=== PATIENT | female | born 1980 | race African-American/Black ===

== ENCOUNTER 2017-04-04 12:23 | Inpatient (IN) | payer BC, OTHER ==
[~2017-04-04] VITALS: Ht 165.1 cm; Wt 72.6 kg
[~2017-04-04 12:23] MED LIST: CHLO.12%30 SSP; DICL75 PO; ENOX40P SQ; IBUP800T23 PO; WARF7.5 PO
[2017-04-04 12:25] VITALS: BP 140/67; PULSE 94; RESP 15; TEMP 98.2; O2SAT 99
--- NOTE | 2017-04-04 12:52 | PD ---
HPI Chief Complaint: Musculoskeletal Complaint Time Seen by Provider: 12:45 Travel History International Travel<30 days: No Contact w/Intl Traveler<30days: No Traveled to known affect area: No History of Present Illness HPI 36 year old female with C/O of left leg pain & R leg edema. She reports the pain & swelling started 7 days prior. She denies trauma or injury She denies recent surgery, immobilization, no hormonal therapy. She is a smoker. She has a hx of prior DVT in R leg . She reports the left leg pain is constant, originating in the left buttocks & radiates down the posterior thigh to the posterior knee. The right leg is painful in the posterior aspect of the knee. She reports a PMH of prior R leg DVT after being placed on BC pills. No home meds. 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) Psychiatric: No Reproductive: No Respiratory: Yes Immunizations Current: No Migraines: Yes ?: Not : 3 Para: 3 Past Surgical History Abdominal Surgery: No Cardiac Surgery: No Section: Yes Gynecologic Surgery: Yes (3 c sect) Neurologic Surgery: Yes Thoracic Surgery: No Other Surgery: Yes Social History Alcohol Use: Yes Tobacco Use: Yes Substance Use: No Allergies-Medications (Allergen,Severity, Reaction): Coded Allergies: Penicillin (Verified Allergy, Severe, SWELLING, VOMITING, 07/12/16) Reported Meds & Prescriptions Reported Meds & Active Scripts Active No Active Prescriptions or Reported Medications Review of Systems Except as stated in HPI: all other systems reviewed are Neg Physical Exam Narrative GENERAL: well appearing black female. No distress. SKIN: Warm and dry. HEAD: Normocephalic. EYES: No scleral icterus. No injection or drainage. NECK: Supple, trachea midline. No JVD or lymphadenopathy. CARDIOVASCULAR: Regular rate and rhythm without murmurs, gallops, or rubs. RESPIRATORY: Breath sounds equal bilaterally. No accessory muscle use. GASTROINTESTINAL: Abdomen soft, non-tender, nondistended. MUSCULOSKELETAL: R leg: mild swelling, slightly larger than left, no pitting edema. Pulses present. N/V/S intact. No cyanosis. Tenderness to the posterior aspect of the knee. L leg: No edema, Pulses present. N/V/S intact. No cyanosis. Tenderness to the posterior aspect of the knee & thigh. BACK: Nontender without obvious deformity. No CVA tenderness. Data Data Last Documented VS Vital Signs Date Time Temp Pulse Resp B/P Pulse Ox O2 Delivery O2 Flow Rate FiO2 04/04/17 15:00 80 18 140/78 98 Room Air 04/04/17 12:25 98.2 Orders Us Leg Venous Doppler Bilat (04/04/17 ) Basic Metabolic Panel (Bmp) (04/04/17 12:53) Complete Blood Count With Diff (04/04/17 12:53) Prothrombin Time / Inr (Pt) (04/04/17 12:53) Act Partial Throm Time (Ptt) (04/04/17 12:53) Iv Access Insert/Monitor (04/04/17 12:53) Sodium Chloride 0.9% Flush (Ns Flush) (04/04/17 13:00) Enoxaparin Inj (Lovenox Inj) (04/04/17 15:15) Admit Order (Ed Use Only) (04/04/17 15:27) Labs Laboratory Tests Test 04/04/17 13:05 White Blood Count 13.2 TH/MM3 Red Blood Count 4.47 MIL/MM3 Hemoglobin 13.7 GM/DL Hematocrit 40.8 % Mean Corpuscular Volume 91.1 FL Mean Corpuscular Hemoglobin 30.6 PG Mean Corpuscular Hemoglobin 33.6 % Concent Red Cell Distribution Width 13.2 % Platelet Count 318 TH/MM3 Mean Platelet Volume 7.4 FL Neutrophils (%) (Auto) 75.6 % Lymphocytes (%) (Auto) 13.7 % Monocytes (%) (Auto) 8.5 % Eosinophils (%) (Auto) 1.7 % Basophils (%) (Auto) 0.5 % Neutrophils # (Auto) 10.0 TH/MM3 Lymphocytes # (Auto) 1.8 TH/MM3 Monocytes # (Auto) 1.1 TH/MM3 Eosinophils # (Auto) 0.2 TH/MM3 Basophils # (Auto) 0.1 TH/MM3 CBC Comment DIFF FINAL Differential Comment Prothrombin Time 10.0 SEC Prothromb Time International 0.9 RATIO Ratio Activated Partial 24.4 SEC Thromboplast Time Sodium Level 139 MEQ/L Potassium Level 3.8 MEQ/L Chloride Level 103 MEQ/L Carbon Dioxide Level 27.7 MEQ/L Anion Gap 8 MEQ/L Blood Urea Nitrogen 7 MG/DL Creatinine 0.47 MG/DL Estimat Glomerular Filtration 179 ML/MIN Rate Random Glucose 78 MG/DL Calcium Level 9.1 MG/DL MDM Medical Decision Making Medical Screen Exam Complete: Yes Emergency Medical Condition: Yes Medical Record Reviewed: Yes Differential Diagnosis DVT vs peripheral edema vs left sided sciatica vs nonspecific leg pain Narrative Course 36 year old female presents with 1 week hx of left leg pain & right leg swelling. She has a hx of prior R leg DVT. Not currently on any medications. Duplex US pending. Duplex US: DVT right leg, thrombosis of the left greater saphenous vein. Patient is uninsured with no Primary care provider, will admit to hospital to bridge on Coumadin. Residents/Dr. South agree to admit patient to their service. Physician Communication Physician Communication Spoke with medical residents & Dr. South they agree to admit patient to their services. Diagnosis Primary Impression: DVT (deep venous thrombosis) Qualified Code: I82.4Y1 - Acute deep vein thrombosis (DVT) of proximal vein of right lower extremity Admitting Information Admitting Physician Requests: Admit Scripts No Active Prescriptions or Reported Sunita Ennis April 04, 2017 12:52
[2017-04-04] MEDS ORDERED: SODIUM CHLORIDE 0.9% FLUSH 10 ML FLUSH IV FLUSH PRN (13:00)
[2017-04-04 13:26] LABS: BASOPHIL # 0.1 TH/MM3 (0-0.2); BASOPHIL % 0.5 % (0.0-2.0); EOSINOPHIL # 0.2 TH/MM3 (0-0.4); EOSINOPHIL % 1.7 % (0.0-4.0); HEMATOCRIT 40.8 % (35.0-46.0); HEMO FLAGS DIFF FINAL; LYMPH % 13.7 % (9.0-44.0); LYMPHOCYTE # 1.8 TH/MM3 (1.0-4.8); MEAN CELL VOLUME 91.1 FL (80.0-100.0); MEAN CORPUSCULAR HEMOGLOBIN 30.6 PG (27.0-34.0); MEAN CORPUSCULAR HGB CONC 33.6 % (32.0-36.0); MONO % 8.5 % (0.0-8.0); NEUT % 75.6 % (16.0-70.0); PLATELET COUNT 318 TH/MM3 (150-450); RED BLOOD COUNT 4.47 MIL/MM3 (4.00-5.30); RED CELL DISTRIBUTION WIDTH 13.2 % (11.6-17.2); WHITE BLOOD COUNT 13.2 TH/MM3 (4.0-11.0)
[2017-04-04 13:33] LABS: APTT (PATIENT) 24.4 SEC (24.3-30.1); INTERNATIONAL NORMALIZED RATIO 0.9 RATIO
[2017-04-04 13:47] LABS: BICARBONATE 27.7 MEQ/L (21.0-32.0); POTASSIUM 3.8 MEQ/L (3.5-5.1)
--- NOTE | 2017-04-04 14:54 | RADRPT ---
EXAM DATE/TIME: 04/04/2017 13:08 [facility] COMPARISON: US LEG RIGHT VENOUS DOPPLER, February 23, 2015, 6:36. INDICATIONS : Right leg edema. Left leg pain. MEDICAL HISTORY : Brain stem cyst. DVT. Migraines. Asthma. Cardiac disorder. SURGICAL HISTORY : section.Tubal ligation. Craniotomy. ENCOUNTER: Initial ACUITY: 1 week PAIN SCORE: 7/10 LOCATION: Bilateral legs. TECHNIQUE: Venous ultrasound of the left and right leg was performed from the inguinal ligament to the proximal calf. Real-time, color Doppler and spectral tracing, compression and augmentation techniques were us ed. FINDINGS: RIGHT LEG: There is incomplete compressibility of the deep veins in the lumen of the common femoral, femoral, po pliteal, and posterior tibial veins with similar changes in the greater saphenous vein. LEFT LEG: There is normal compressibility of the deep venous system from the inguinal region to the proximal ca lf. No echogenic clot is seen in the lumen of the common femoral, femoral, popliteal, and posterior tibial veins. There is a normal response of the venous system to proximal and distal augmentation an d respiration. Thrombus seen within the greater saphenous vein on the left. Solis's cyst measures 6. 7 x 1.2 cm. CONCLUSION: 1. Deep venous thrombosis of the right leg. 2. Thrombosis of the left greater saphenous vein. 3. Popliteal cyst on the left. Jacky Avery MD on April 04, 2017 at 14:50 Board Certified Radiologist. This report was verified electronically.
[2017-04-04 15:00] VITALS: BP 140/78; PULSE 80; RESP 18; O2SAT 98
[2017-04-04] MEDS ORDERED: ENOXAPARIN SODIUM 80 MG/0.8 ML SYRINGE SQ ONE (15:15)
[2017-04-04] MEDS ORDERED: ACETAMINOPHEN/HYDROcodone 325 MG/5 MG TAB PO PRN (16:00)
--- NOTE | 2017-04-04 16:00 | HHI.HP ---
[facility] Service Family Medicine Primary Care Physician No Primary Care Physician Admission Diagnosis DVT Diagnoses: International Travel<30 Days: No Contact w/Intl Traveler<30days: No Known Affected Area: No History of Present Illness Pt is a 36 y/o AAF with a past medical history of lower extremity DVTs and asthma presents to the [facility] ED with a chief complaint of left leg pain and right leg swelling of one week duration. The patient states that her right buttock hurts really bad with cramping pain and the pain radiates down to her feet. She has had difficulty with ambulation. She reports weakness in her lower extremities and numbness of her feet. She denies any change in medications, she is not taking any medications at the moment. She denies changes in diet and recent travel. Patient states that she had a DVT in 2008 in her right leg which was attributed to her smoking cigarettes while taking control. She was admitted to [facility] where she was bridged with warfarin. She took warfarin for like 3-4 years and then stopped because she lost her job and her insurance and could not go to clinics and could not afford the medication. Review of Systems Constitutional: COMPLAINS OF: Dizziness, DENIES: Fever, Chills, Change in appetite Eyes: DENIES: Blurred vision Ears, nose, mouth, throat: DENIES: Nasal discharge, Throat pain, Running Nose Respiratory: DENIES: Shortness of breath Gastrointestinal: COMPLAINS OF: Nausea, DENIES: Abdominal pain, Vomiting Genitourinary: DENIES: Urinary frequency, Dysuria Musculoskeletal: COMPLAINS OF: Muscle aches, Back pain Integumentary: DENIES: Rash Neurologic: COMPLAINS OF: Paresthesias Past Family Social History Past Medical History History of right lower extremity DVT Asthma Alcohol abuse Smoking addiction Past Surgical History Cyst removal from her brainstem several years earlier Reported Medications Reported Meds & Active Scripts Active No Active Prescriptions or Reported Medications Allergies: Coded Allergies: Penicillin (Verified Allergy, Severe, SWELLING, VOMITING, 07/12/16) Family History No family history of bleeding/clotting disorder Social History Drinks minimum 4 pack of beer 2-3 times a week Smokes one pack per day 21 years Marijuana use, last was 2 days ago Physical Exam Vital Signs Vital Signs Date Time Temp Pulse Resp B/P Pulse Ox O2 Delivery O2 Flow Rate FiO2 04/04/17 15:00 80 18 140/78 98 Room Air 04/04/17 12:25 98.2 94 15 140/67 99 Physical Exam GENERAL: This is a well-nourished, well-developed patient, in no apparent distress, but appears in pain, lying in bed, leaning towards her right side. Breathing comfortably on room air SKIN: No rashes, ecchymoses or lesions. Cool and dry. HEAD: Atraumatic. Normocephalic. No temporal or scalp tenderness. EYES: Pupils equal round and reactive. Extraocular motions intact. No scleral icterus. No injection or drainage. ENT: Nose without bleeding, purulent drainage or septal hematoma. Throat without erythema, tonsillar hypertrophy or exudate. Uvula midline. Airway patent. NECK: Trachea midline. No JVD or lymphadenopathy. Supple, nontender, no meningeal signs. CARDIOVASCULAR: Regular rate and rhythm without murmurs, gallops, or rubs. RESPIRATORY: Clear to auscultation. Breath sounds equal bilaterally. No wheezes , rales, or rhonchi. GASTROINTESTINAL: Abdomen soft, tender to palpation in the epigastric area, nondistended. No hepato-splenomegaly, or palpable masses. No guarding. MUSCULOSKELETAL: Right lower extremity appears larger than the left lower extremity, cough tenderness bilaterally, palpable cord in the medial aspect of her right lower extremity, tenderness in the posterior aspect of her right knee and same tenderness in the posterior aspect of the left knee. Palpable dorsalis pedis pulses bilaterally. Sensation intact. Able to elevate both lower extremities against resistance. 4/5 strength in plantar and dorsiflexion. NEUROLOGICAL: Awake and alert. Cranial nerves II through XII intact. Motor and sensory grossly within normal limits. Laboratory Laboratory Tests Test 04/04/17 13:05 White Blood Count 13.2 Red Blood Count 4.47 Hemoglobin 13.7 Hematocrit 40.8 Mean Corpuscular Volume 91.1 Mean Corpuscular Hemoglobin 30.6 Mean Corpuscular Hemoglobin 33.6 Concent Red Cell Distribution Width 13.2 Platelet Count 318 Mean Platelet Volume 7.4 Neutrophils (%) (Auto) 75.6 Lymphocytes (%) (Auto) 13.7 Monocytes (%) (Auto) 8.5 Eosinophils (%) (Auto) 1.7 Basophils (%) (Auto) 0.5 Neutrophils # (Auto) 10.0 Lymphocytes # (Auto) 1.8 Monocytes # (Auto) 1.1 Eosinophils # (Auto) 0.2 Basophils # (Auto) 0.1 CBC Comment DIFF FINAL Differential Comment Prothrombin Time 10.0 Prothromb Time International 0.9 Ratio Activated Partial 24.4 Thromboplast Time Sodium Level 139 Potassium Level 3.8 Chloride Level 103 Carbon Dioxide Level 27.7 Anion Gap 8 Blood Urea Nitrogen 7 Creatinine 0.47 Estimat Glomerular Filtration 179 Rate Random Glucose 78 Calcium Level 9.1 Result Diagram: 04/04/17 1305 04/04/17 1305 Imaging Last 48 hours Impressions Lower Extremity Ultrasound 04/04/17 0000 Signed Impressions: Service Date/Time: Tuesday, April 04, 2017 13:08 - CONCLUSION: 1. Deep venous thrombosis of the right leg. 2. Thrombosis of the left greater saphenous vein. 3. Popliteal cyst on the left. Jacky Avery MD Assessment and Plan Assessment and Plan 36-year-old female with a history of right lower extremity DVT and asthma presents with a one-week history of left leg pain and right lower extremity pain and swelling found to have a DVT of her right lower extremity and thrombosis of the left greater saphenous vein. She will be admitted under observation for treatment with therapeutic Lovenox and bridging to warfarin. Patient is interested in novel anticoagulants but notably is self-pay and may not be able to afford those medications. Code Status Full code Discussed Condition With Discussed with Dr. Hopper, PGY 2 Problem List: (1) DVT (deep venous thrombosis) Status: Acute Plan: -Acute on chronic DVT of right lower extremity confirmed by lower extremity ultrasound today -Hypercoagulable panel pending -Ultrasound abdomen pending -Started on therapeutic Lovenox 1 mg/kg twice a day - 83 mg twice a day -We'll start warfarin bridge at 5 mg PO today with daily INR checks - will adjust warfarin as needed to get to target INR of 2-3 -[place] one tab every 4 when necessary pain 1 through 5 -[place] 2 tab when necessary pain 5-10 -Morphine 2 mg IV every 4 when necessary for breakthrough pain -Zofran 4 mg IV when necessary nausea/vomiting -Case management consulted to assist with patient's medications -Physical therapy consulted to assist with mobility DVT Hx: -First DVT was in August 2009 - right femoral artery -November 2009-DVT of the right lower extremity -February 2015: DVT of the distal SFV, popliteal vein, and posterior tibial vein of the right lower extremity (2) FEN/DVT PPX/GI PPX/Standard Orders Status: Acute Plan: Fluids: Oral fluids Electrolytes: Will monitor and replace as needed Nutrition: Regular adult diet DVT Prophylaxis: On therapeutic Lovenox as above GI Prophylaxis: Not required -Monitor I's and O's -Continuous vital signs -Out of bed as tolerated -Nicotine patch due to daily smoking Disposition: Patient will probably require up to 5 days to become therapeutic on warfarin Problem Qualifiers (1) DVT (deep venous thrombosis): Qualified Code: I82.4Y1 - Acute deep vein thrombosis (DVT) of proximal vein of right lower extremity Norma Sharma MD R1 April 04, 2017 16:00
--- NOTE | 2017-04-04 16:20 | PD ---
Data Data Last Documented VS Vital Signs Date Time Temp Pulse Resp B/P Pulse Ox O2 Delivery O2 Flow Rate FiO2 04/04/17 15:00 80 18 140/78 98 Room Air 04/04/17 12:25 98.2 Orders Us Leg Venous Doppler Bilat (04/04/17 ) Basic Metabolic Panel (Bmp) (04/04/17 12:53) Complete Blood Count With Diff (04/04/17 12:53) Prothrombin Time / Inr (Pt) (04/04/17 12:53) Act Partial Throm Time (Ptt) (04/04/17 12:53) Iv Access Insert/Monitor (04/04/17 12:53) Sodium Chloride 0.9% Flush (Ns Flush) (04/04/17 13:00) Enoxaparin Inj (Lovenox Inj) (04/04/17 15:15) Admit Order (Ed Use Only) (04/04/17 15:27) Labs Laboratory Tests Test 04/04/17 13:05 White Blood Count 13.2 TH/MM3 Red Blood Count 4.47 MIL/MM3 Hemoglobin 13.7 GM/DL Hematocrit 40.8 % Mean Corpuscular Volume 91.1 FL Mean Corpuscular Hemoglobin 30.6 PG Mean Corpuscular Hemoglobin 33.6 % Concent Red Cell Distribution Width 13.2 % Platelet Count 318 TH/MM3 Mean Platelet Volume 7.4 FL Neutrophils (%) (Auto) 75.6 % Lymphocytes (%) (Auto) 13.7 % Monocytes (%) (Auto) 8.5 % Eosinophils (%) (Auto) 1.7 % Basophils (%) (Auto) 0.5 % Neutrophils # (Auto) 10.0 TH/MM3 Lymphocytes # (Auto) 1.8 TH/MM3 Monocytes # (Auto) 1.1 TH/MM3 Eosinophils # (Auto) 0.2 TH/MM3 Basophils # (Auto) 0.1 TH/MM3 CBC Comment DIFF FINAL Differential Comment Prothrombin Time 10.0 SEC Prothromb Time International 0.9 RATIO Ratio Activated Partial 24.4 SEC Thromboplast Time Sodium Level 139 MEQ/L Potassium Level 3.8 MEQ/L Chloride Level 103 MEQ/L Carbon Dioxide Level 27.7 MEQ/L Anion Gap 8 MEQ/L Blood Urea Nitrogen 7 MG/DL Creatinine 0.47 MG/DL Estimat Glomerular Filtration 179 ML/MIN Rate Random Glucose 78 MG/DL Calcium Level 9.1 MG/DL MDM Supervised Visit with LINDA: Yes Narrative Course The history, exam, and medical decision-making in the associated mid-level provider note were completed with my assistance. I reviewed and agree with the findings presented. I attest that I had a [id number] encounter with the patient on the same day, and personally performed and documented my assessment and findings in the medical record. *My assessment and Findings: 36 year-old woman, history of right lower extremity DVT, worsening swelling for the past week, and some left groin pain and left hip pain. She has recurrent DVT in the right, and superficial vein thrombosis of the saphenous vein on the left. She will require lifelong anticoagulation. She has no primary physician , no insurance, will need hospitalization for case management, initiation of anticoagulation. Diagnosis Primary Impression: DVT (deep venous thrombosis) Qualified Code: I82.4Y1 - Acute deep vein thrombosis (DVT) of proximal vein of right lower extremity Scripts No Active Prescriptions or Reported Meds Feliciano Logan MD April 04, 2017 16:20
[2017-04-04] MEDS ORDERED: INFO FOR PHARMACY/READ COMMENT ONE (16:30)
[2017-04-04] MEDS ORDERED: ONDANSETRON HCL 4 MG/2 ML VIAL IV PUSH PRN (16:45)
[2017-04-04] MEDS: WARFARIN SOD 5 MG TAB PO SCH (16:46)
[2017-04-04] MEDS: NICOTINE 14 MG/24 HR PATCH T-DERMAL SCH (16:47)
[2017-04-04] MEDS: MORPHINE SULFATE 4 MG/ML INJ IV PRN ×2 (16:47→21:05)
[2017-04-04 16:59] VITALS: BP 126/78
[2017-04-04 17:10] VITALS: BP 127/74; PULSE 85; RESP 18; TEMP 98.6; O2SAT 97
[2017-04-04] MEDS: ACETAMINOPHEN/HYDROcodone 325 MG/5 MG TAB PO PRN ×2 (18:06→22:16)
--- NOTE | 2017-04-04 18:11 | RADRPT ---
EXAM DATE/TIME: 04/04/2017 17:29 [facility] COMPARISON: No previous studies available for comparison. INDICATIONS : Abdominal pain. MEDICAL HISTORY : . Deep venous thrombosis. Head trauma. Brain stem cyst. Migraines. Asthma. Post dep ression. SURGICAL HISTORY : Tubal ligation. section. Brain stem cyst removal. ENCOUNTER: Initial ACUITY: 1 day PAIN SCORE: 3/10 LOCATION: Bilateral abdomen. MEASUREMENTS: LIVER: 14.2 cm length COMMON DUCT: 5 mm RIGHT KIDNEY: 10.2 x 5.4 x 4.9 cm LEFT KIDNEY: 11.7 x 5.9 x 5.6 cm SPLEEN: 8.6 cm length AORTA: 2.3cm maximal FINDINGS: LIVER: Normal echotexture without focal lesion or ductal dilatation. COMMON DUCT: No intraluminal mass or stone visualized. GALLBLADDER: Contains no stones, demonstrates no wall thickening or pericholecystic fluid. PANCREAS: The visualized portions are within normal limits. RIGHT KIDNEY: No hydronephrosis, stone or mass. LEFT KIDNEY: No hydronephrosis, stone or mass. SPLEEN: No focal lesion. AORTA: Non aneurysmal. IVC: Within normal limits. CONCLUSION: Negative for an acute process. Pancreas is difficult to visualize because of patient body habitus.. Marino Lau MD FACR on April 04, 2017 at 18:08 Board Certified Radiologist. This report was verified electronically.
[2017-04-04] MEDS: SODIUM CHLORIDE 0.9% FLUSH 10 ML FLUSH IV FLUSH SCH (19:59)
[2017-04-04] MEDS: REMOVE OLD PATCH T-DERMAL SCH (19:59)
[2017-04-04 20:05] VITALS: BP 116/73; PULSE 90; RESP 17; TEMP 98.1; O2SAT 96
[2017-04-05] VITALS (10 sets, daily range): BP systolic 85–121; BP diastolic 57–85; PULSE 73–95; RESP 16–18; TEMP 96.1–97.8; O2SAT 97–100
[2017-04-05] MEDS: MORPHINE SULFATE 4 MG/ML INJ IV PRN ×3 (03:14→16:56)
[2017-04-05] MEDS: ENOXAPARIN SODIUM 80 MG/0.8 ML SYRINGE SQ SCH ×2 (03:14→14:14)
[2017-04-05] MEDS: ACETAMINOPHEN/HYDROcodone 325 MG/5 MG TAB PO PRN ×2 (04:00→10:08)
[2017-04-05 05:39] LABS: AUTOMATED NEUTROPHIL # 6.7 TH/MM3 (1.8-7.7); BASOPHIL # 0.1 TH/MM3 (0-0.2); BASOPHIL % 0.7 % (0.0-2.0); EOSINOPHIL # 0.2 TH/MM3 (0-0.4); EOSINOPHIL % 2.4 % (0.0-4.0); HEMATOCRIT 38.5 % (35.0-46.0); HEMO FLAGS DIFF FINAL; LYMPH % 24.3 % (9.0-44.0); LYMPHOCYTE # 2.5 TH/MM3 (1.0-4.8); MEAN CELL VOLUME 90.4 FL (80.0-100.0); MEAN CORPUSCULAR HEMOGLOBIN 31.3 PG (27.0-34.0); MEAN CORPUSCULAR HGB CONC 34.6 % (32.0-36.0); MONO % 7.3 % (0.0-8.0); NEUT % 65.3 % (16.0-70.0); PLATELET COUNT 325 TH/MM3 (150-450); RED BLOOD COUNT 4.26 MIL/MM3 (4.00-5.30); RED CELL DISTRIBUTION WIDTH 13.3 % (11.6-17.2); WHITE BLOOD COUNT 10.2 TH/MM3 (4.0-11.0)
[2017-04-05 05:40] LABS: PROTHROMBIN TIME - PATIENT 10.5 SEC (9.8-11.6)
[2017-04-05 06:06] LABS: BICARBONATE 31.6 MEQ/L (21.0-32.0); POTASSIUM 3.4 MEQ/L (3.5-5.1)
[2017-04-05] MEDS ORDERED: POTASSIUM CHLORIDE 10 MEQ CONTROLLED RELEASE TAB PO ONE (07:15)
[2017-04-05] MEDS ORDERED: POTASSIUM CHLORIDE 10 MEQ CAP PO ONE (07:15)
[2017-04-05] MEDS: NICOTINE 14 MG/24 HR PATCH T-DERMAL SCH (07:31)
[2017-04-05] MEDS: SODIUM CHLORIDE 0.9% FLUSH 10 ML FLUSH IV FLUSH SCH ×2 (09:00→19:57)
[2017-04-05] MEDS ORDERED: INFLUENZA VIRUS VACCINE (QUADRIVALENT) 0.5 ML SYR IM ONE (10:00)
[2017-04-05] MEDS ORDERED: PNEUMOCOCCAL POLYVALENT INJ 25 MCG/0.5 ML SYR IM ONE (10:00)
[2017-04-05] MEDS: oxyCODONE/ACETAMINOPHEN 5 MG/325 MG TAB PO PRN ×4 (10:35→23:57)
--- NOTE | 2017-04-05 11:14 | HHI.FPPN ---
Subjective Remarks Patient still has a lot of pain and said she was in a lot of pain overnight because the Mar Lin did not help at all. She also complains of pain and numbness in her right arm and shoulder. She denies chest pain, shortness of breath, or hemoptysis. She understands that she would need to take warfarin which is the only medication she can afford at this time. She would need to be on anticoagulation for the rest of her life. (Norma Sharma MD R1) Objective Vitals Vital Signs Date Time Temp Pulse Resp B/P Pulse Ox O2 Delivery O2 Flow Rate FiO2 04/05/17 08:42 99 21 04/05/17 08:00 96.7 76 16 92/65 97 04/05/17 07:36 16 04/05/17 04:05 96.8 89 17 121/85 100 04/05/17 00:05 97.1 73 16 100/69 98 04/04/17 20:05 98.1 90 17 116/73 96 04/04/17 17:10 98.6 85 18 127/74 97 04/04/17 16:59 78 18 126/78 98 04/04/17 15:00 80 18 140/78 98 Room Air 04/04/17 12:25 98.2 94 15 140/67 99 I/O 04/04/17 04/04/17 04/04/17 04/05/17 04/05/17 04/05/17 07:00 15:00 23:00 07:00 15:00 23:00 Intake Total 360 ml 240 ml Balance 360 ml 240 ml Intake Oral 360 ml 240 ml # Voids 2 2 # Bowel Movements 0 0 (Norma Sharma MD R1) Result Diagram: 04/05/17 0510 04/05/17 0510 Imaging Last 48 hours Impressions Lower Extremity Ultrasound 04/04/17 0000 Signed Impressions: Service Date/Time: Tuesday, April 04, 2017 13:08 - CONCLUSION: 1. Deep venous thrombosis of the right leg. 2. Thrombosis of the left greater saphenous vein. 3. Popliteal cyst on the left. Jacky Avery MD Abdomen Ultrasound 04/04/17 0000 Signed Impressions: Service Date/Time: Tuesday, April 04, 2017 17:29 - CONCLUSION: Negative for an acute process. Pancreas is difficult to visualize because of patient body habitus.. Marino Lau MD FACR Objective Remarks GENERAL: This is a well-nourished, well-developed patient, in no apparent distress, lying in bed, leaning towards her right side. Breathing comfortably on room air SKIN: No rashes, ecchymoses or lesions. Cool and dry. HEAD: Atraumatic. Normocephalic. No temporal or scalp tenderness. EYES: Pupils equal round and reactive. Extraocular motions intact. No scleral icterus. No injection or drainage. ENT: Nose without bleeding, purulent drainage or septal hematoma. Throat without erythema, tonsillar hypertrophy or exudate. Uvula midline. Airway patent. NECK: Trachea midline. No JVD or lymphadenopathy. Supple, nontender, no meningeal signs. CARDIOVASCULAR: Regular rate and rhythm without murmurs, gallops, or rubs. RESPIRATORY: Clear to auscultation. Breath sounds equal bilaterally. No wheezes , rales, or rhonchi. GASTROINTESTINAL: Abdomen soft, nondistended. No hepato-splenomegaly, or palpable masses. No guarding. MUSCULOSKELETAL: Right lower extremity appears larger than the left lower extremity, tenderness in the posterior aspect of her right knee and same tenderness in the posterior aspect of the left knee. Tenderness in the left buttock NEUROLOGICAL: Awake and alert. Cranial nerves II through XII intact. Motor and sensory grossly within normal limits. (Norma Sharma MD R1) A/P Assessment and Plan 36-year-old female with a history of right lower extremity DVT and asthma presents with a one-week history of left leg pain and right lower extremity pain and swelling found to have a DVT of her right lower extremity and thrombosis of the left greater saphenous vein. She will be admitted under observation for treatment with therapeutic Lovenox and bridging to warfarin. Patient is interested in novel anticoagulants but notably is self-pay and may not be able to afford those medications. Seen and examined with Dr. South and Dr. Myles Discharge Planning Pending therapeutic INR of 2-3, possibly in the next 3-4 days. (Norma Sharma MD R1) Attending Attestation Patient seen and examined. Case reviewed and discussed with the resident team. Agree with plan of care as discussed with me and documented in the resident note (Red South MD) Problem List: (1) DVT (deep venous thrombosis) Status: Acute Plan: -Acute on chronic DVT of right lower extremity confirmed by lower extremity ultrasound today -Hypercoagulable panel pending -Ultrasound abdomen was negative but did not view the pancreas appropriately -Started on therapeutic Lovenox 1 mg/kg twice a day - 83 mg twice a day -Started on warfarin bridge at 5 mg PO today with daily INR checks - will adjust warfarin as needed to get to target INR of 2-3 -INR 1.0 on 04/05 -Percocet one tab every 4 when necessary pain 1-5 -Percocet 2 tab when necessary pain 5-10 -Morphine 2 mg IV every 4 when necessary for breakthrough pain -Zofran 4 mg IV when necessary nausea/vomiting -Case management consulted to assist with patient's medications -Physical therapy consulted to assist with mobility -Heat treatments for left buttock and legs DVT Hx: -First DVT was in August 2009 - right femoral artery -November 2009-DVT of the right lower extremity -February 2015: DVT of the distal SFV, popliteal vein, and posterior tibial vein of the right lower extremity (2) FEN/DVT PPX/GI PPX/Standard Orders Status: Acute Plan: Fluids: Oral fluids Electrolytes: Will monitor and replace as needed Nutrition: Regular adult diet DVT Prophylaxis: On therapeutic Lovenox with warfarin as above GI Prophylaxis: Not required -Monitor I's and O's -Continuous vital signs -Out of bed as tolerated -Nicotine patch due to daily smoking Disposition: Patient will probably require up to 5 days to become therapeutic on warfarin (Norma Sharma MD R1) Problem Qualifiers (1) DVT (deep venous thrombosis): Qualified Code: I82.4Y1 - Acute deep vein thrombosis (DVT) of proximal vein of right lower extremity Norma Sharma MD R1 April 05, 2017 11:14 Red South MD April 06, 2017 09:04
[2017-04-05] MEDS: WARFARIN SOD 5 MG TAB PO SCH (16:48)
[2017-04-05] MEDS: REMOVE OLD PATCH T-DERMAL SCH (20:04)
[2017-04-05] MEDS ORDERED: NICOTINE 14 MG/24 HR PATCH T-DERMAL ONE (21:00)
[2017-04-06] MEDS: ENOXAPARIN SODIUM 80 MG/0.8 ML SYRINGE SQ SCH ×2 (03:22→14:42)
[2017-04-06 04:15] VITALS: BP 94/69; PULSE 82; RESP 16; TEMP 97.1; O2SAT 100
[2017-04-06 05:08] LABS: HEMATOCRIT 37.6 % (35.0-46.0); MEAN CELL VOLUME 91.5 FL (80.0-100.0); MEAN CORPUSCULAR HEMOGLOBIN 30.8 PG (27.0-34.0); MEAN CORPUSCULAR HGB CONC 33.7 % (32.0-36.0); PLATELET COUNT 305 TH/MM3 (150-450); RED BLOOD COUNT 4.12 MIL/MM3 (4.00-5.30); REVIEW FLAG FINAL; WHITE BLOOD COUNT 9.7 TH/MM3 (4.0-11.0)
[2017-04-06 05:18] LABS: PROTHROMBIN TIME - PATIENT 10.6 SEC (9.8-11.6)
[2017-04-06 05:35] LABS: BICARBONATE 34.3 MEQ/L (21.0-32.0); POTASSIUM 3.9 MEQ/L (3.5-5.1)
[2017-04-06] MEDS: oxyCODONE/ACETAMINOPHEN 5 MG/325 MG TAB PO PRN ×3 (07:23→20:48)
[2017-04-06 08:00] VITALS: BP_SYST 140; BP_SYST 97; BP_DIAS 63; BP_DIAS 70; PULSE 70; PULSE 89; RESP 18; TEMP 97.2; TEMP 97.9; O2SAT 100; O2SAT 99
[2017-04-06] MEDS: NICOTINE 14 MG/24 HR PATCH T-DERMAL SCH ×2 (09:00→10:29)
--- NOTE | 2017-04-06 09:13 | HHI.FPPN ---
Subjective Remarks Ms Haddad is doing much better this morning. She continues to have left buttock and left calf pain but states that the pain is much improved and is well managed with medication. She had an episode of vomiting yesterday but none since. The pain in her right arm and shoulder that she reported yesterday is much improved but she now has pain on her left arm. She has been able to walk with physical therapy and will try more activity of daily. Objective Vitals Vital Signs Date Time Temp Pulse Resp B/P Pulse Ox O2 Delivery O2 Flow Rate FiO2 04/06/17 08:00 97.2 89 18 97/63 100 04/06/17 04:15 97.1 82 16 94/69 100 04/05/17 23:55 97.8 81 16 113/74 100 04/05/17 19:40 97.8 95 16 100/68 98 04/05/17 19:26 98 21 04/05/17 17:11 17 04/05/17 16:50 105/69 04/05/17 16:00 96.1 74 18 85/57 97 04/05/17 15:16 16 04/05/17 12:00 97.4 83 18 112/68 98 I/O 04/05/17 04/05/17 04/05/17 04/06/17 04/06/17 04/06/17 07:00 15:00 23:00 07:00 15:00 23:00 Intake Total 240 ml 840 ml 240 ml Balance 240 ml 840 ml 240 ml Intake Oral 240 ml 840 ml 240 ml # Voids 2 5 2 # Bowel Movements 0 0 0 Result Diagram: 04/06/17 0420 04/06/17 0420 Objective Remarks GENERAL: This is a well-nourished, well-developed patient, in no apparent distress, lying in bed, leaning towards her right side. Breathing comfortably on room air SKIN: No rashes, ecchymoses or lesions. Cool and dry. HEAD: Atraumatic. Normocephalic. No temporal or scalp tenderness. EYES: Pupils equal round and reactive. Extraocular motions intact. No scleral icterus. No injection or drainage. ENT: Nose without bleeding, purulent drainage or septal hematoma. Throat without erythema, tonsillar hypertrophy or exudate. Uvula midline. Airway patent. NECK: Trachea midline. No JVD or lymphadenopathy. Supple, nontender, no meningeal signs. CARDIOVASCULAR: Regular rate and rhythm without murmurs, gallops, or rubs. RESPIRATORY: Clear to auscultation. Breath sounds equal bilaterally. No wheezes , rales, or rhonchi. GASTROINTESTINAL: Abdomen soft, nondistended. No hepato-splenomegaly, or palpable masses. No guarding. MUSCULOSKELETAL: Right lower extremity appears larger than the left lower extremity, tenderness in the posterior aspect of her right knee and same tenderness in the posterior aspect of the left knee. Tenderness in the left buttock. Nicotine patch on the left upper arm. NEUROLOGICAL: Awake and alert. Cranial nerves II through XII intact. Motor and sensory grossly within normal limits. A/P Assessment and Plan 36-year-old female with a history of right lower extremity DVT and asthma presents with a one-week history of left leg pain and right lower extremity pain and swelling found to have a DVT of her right lower extremity and thrombosis of the left greater saphenous vein. She will be admitted under observation for treatment with therapeutic Lovenox and bridging to warfarin. Discussed with Dr. Hopper, PGY 2 Discharge Planning Pending therapeutic INR of 2-3, possibly in the next 3-4 days. Problem List: (1) DVT (deep venous thrombosis) Status: Acute Plan: -Acute on chronic DVT of right lower extremity confirmed by lower extremity ultrasound -Hypercoagulable panel pending -Ultrasound abdomen was negative but did not view the pancreas appropriately -Started on therapeutic Lovenox 1 mg/kg twice a day - 83 mg twice a day -Started on warfarin bridge at 5 mg PO today with daily INR checks - will adjust warfarin as needed to get to target INR of 2-3 -INR 1.0 on 04/06 - will increase to 6 mg at 4 PM today with an extra dose of 2.5 mg this morning -Percocet one tab every 4 when necessary pain 1-5 -Percocet 2 tab when necessary pain 5-10 -Morphine 2 mg IV every 4 when necessary for breakthrough pain -Zofran 4 mg IV when necessary nausea/vomiting -Case management consulted to assist with patient's medications -offered a blue card -Physical therapy consulted to assist with mobility -Heat treatments for left buttock and legs DVT Hx: -First DVT was in August 2009 - right femoral artery -November 2009-DVT of the right lower extremity -February 2015: DVT of the distal SFV, popliteal vein, and posterior tibial vein of the right lower extremity (2) FEN/DVT PPX/GI PPX/Standard Orders Status: Acute Plan: Fluids: Oral fluids Electrolytes: Will monitor and replace as needed Nutrition: Regular adult diet DVT Prophylaxis: On therapeutic Lovenox with warfarin as above GI Prophylaxis: Not required -Monitor I's and O's -Continuous vital signs -Out of bed as tolerated -Nicotine patch due to daily smoking Disposition: Patient will probably require up to 5 days to become therapeutic on warfarin Problem Qualifiers (1) DVT (deep venous thrombosis): Qualified Code: I82.4Y1 - Acute deep vein thrombosis (DVT) of proximal vein of right lower extremity Norma Sharma MD R1 April 06, 2017 09:13
[2017-04-06] MEDS ORDERED: WARFARIN SOD 2.5 MG TAB PO ONE (09:30)
[2017-04-06] MEDS: SODIUM CHLORIDE 0.9% FLUSH 10 ML FLUSH IV FLUSH SCH ×2 (10:29→20:50)
[2017-04-06] MEDS: MORPHINE SULFATE 4 MG/ML INJ IV PRN (10:38)
[2017-04-06 12:00] VITALS: BP 119/80; PULSE 105; RESP 18; TEMP 102.9; O2SAT 100
[2017-04-06] MEDS: ACETAMINOPHEN 325 MG TAB PO PRN (13:37)
--- NOTE | 2017-04-06 15:21 | RADRPT ---
EXAM DATE/TIME: 04/06/2017 14:05 [facility] COMPARISON: No previous studies available for comparison. INDICATIONS : Left arm swelling and pain. MEDICAL HISTORY : Deep venous thrombosis. Left arm swelling and pain. SURGICAL HISTORY : section. Tubal ligation. Craniotomy. ENCOUNTER: Initial ACUITY: 1 day PAIN SCORE: 7/10 LOCATION: Left arm. FINDINGS: There is spontaneous flow documented in the brachial, basilic, cephalic, axillary, and subclavian vei ns. The vessels are compressible and augmentation response is documented. No filling defects are se en. The flow is phasic with respiration. Direction of flow in the jugular vein is caudal. CONCLUSION: No DVT left arm. Jacky Avery MD on April 06, 2017 at 15:18 Board Certified Radiologist. This report was verified electronically.
[2017-04-06 15:54] VITALS: BP 104/70; PULSE 110; RESP 18; TEMP 99.6; O2SAT 98
[2017-04-06] MEDS ORDERED: WARFARIN SOD 6 MG TAB PO SCH (16:00)
[2017-04-06 20:25] VITALS: BP 117/66; PULSE 122; RESP 16; TEMP 103.2; O2SAT 97
[2017-04-06] MEDS: REMOVE OLD PATCH T-DERMAL SCH (20:48)
--- NOTE | 2017-04-06 21:55 | RADRPT ---
EXAM DATE/TIME: 04/06/2017 20:46 [facility] COMPARISON: No previous studies available for comparison. INDICATIONS : Fever. MEDICAL HISTORY : Asthma. SURGICAL HISTORY : None. ENCOUNTER: Initial ACUITY: 1 day PAIN SCORE: 0/10 LOCATION: Bilateral chest FINDINGS: A single view of the chest demonstrates the lungs to be symmetrically aerated without evidence of mas s, infiltrate or effusion. The cardiomediastinal contours are unremarkable. Osseous structures are intact. CONCLUSION: No acute disease. Alvaro Santiago MD on April 06, 2017 at 21:52 Board Certified Radiologist. This report was verified electronically.
[2017-04-06 22:04] VITALS: PULSE 101; TEMP 99.8
[2017-04-07 00:15] VITALS: BP 107/56; PULSE 104; RESP 16; TEMP 99.5; O2SAT 100
[2017-04-07 00:46] LABS: BLOOD, URINE NEG (NEG); COMMENT (UR) CULT NOT INDICATED; CULTURE IF INDICATED CULT NOT INDICATED; GLUCOSE,URINE NEG (NEG); KETONE, URINE TRACE mg/dL (NEG); MUCUS URINE FEW /lpf (OCC); NITRITE,URINE NEG (NEG); PH, URINE 6.5 (5.0-8.5); SQUAMOUS EPITHELIAL CELL URINE 2 /hpf (0-5); URINE COLOR LIGHT-YELLOW (YELLW/STRAW)
[2017-04-07] MEDS: oxyCODONE/ACETAMINOPHEN 5 MG/325 MG TAB PO PRN ×4 (02:56→19:27)
[2017-04-07] MEDS: ENOXAPARIN SODIUM 80 MG/0.8 ML SYRINGE SQ SCH ×2 (02:56→16:14)
[2017-04-07 03:50] VITALS: BP 93/69; PULSE 110; RESP 16; TEMP 98.1; O2SAT 98
[2017-04-07] MEDS: REMOVE OLD PATCH T-DERMAL SCH (07:28)
[2017-04-07] MEDS: SODIUM CHLORIDE 0.9% FLUSH 10 ML FLUSH IV FLUSH SCH ×2 (07:28→21:03)
[2017-04-07] MEDS: NICOTINE 14 MG/24 HR PATCH T-DERMAL SCH (07:28)
[2017-04-07] MEDS ORDERED: DO NOT ADM ANY ANTICOAGULANT DRUGS OTHER PRN (07:30)
[2017-04-07] MEDS ORDERED: WARFARIN SOD 2.5 MG TAB PO ONE (07:30)
[2017-04-07] MEDS ORDERED: diphenhydrAMINE HCL 50 MG CAP PO ONE (07:45)
[2017-04-07 07:55] LABS: HEMATOCRIT 42.2 % (35.0-46.0); MEAN CELL VOLUME 91.6 FL (80.0-100.0); MEAN CORPUSCULAR HEMOGLOBIN 30.8 PG (27.0-34.0); MEAN CORPUSCULAR HGB CONC 33.6 % (32.0-36.0); PLATELET COUNT 320 TH/MM3 (150-450); RED BLOOD COUNT 4.61 MIL/MM3 (4.00-5.30); REVIEW FLAG FINAL; WHITE BLOOD COUNT 25.5 TH/MM3 (4.0-11.0)
[2017-04-07 08:00] VITALS: BP 90/65; PULSE 98; RESP 18; TEMP 99.9; O2SAT 100
[2017-04-07 08:08] LABS: INTERNATIONAL NORMALIZED RATIO 1.2 RATIO; PROTHROMBIN TIME - PATIENT 13.7 SEC (9.8-11.6)
--- NOTE | 2017-04-07 08:32 | HHI.FPPN ---
Subjective Remarks Patient seen and examined this morning. Overnight had a temperature of 103.2, at this time is afebrile at 98.1, and 10, respiratory rate 16, blood pressure 93 /69. She declined any lightheadedness or dizziness. She is complaining of warmth and pain to her left arm. This pain is where the nicotine patch was recently placed. Concern for possible allergic reaction to the nicotine patch. We'll be placing ice pack over the area of pain, one time dose of Benadryl and will reevaluate. Ultrasound of the area did not show any blood clots, hematomas or abscess. Currently patient's INR is still 1.0 will continue Coumadin bridge Endorses: Pain in the left arm with warmth Denies: Fever, chills, nausea, vomiting, shortness of breath, chest pain, headache, abdominal pain, calf pain Objective Vitals Vital Signs Date Time Temp Pulse Resp B/P Pulse Ox O2 Delivery O2 Flow Rate FiO2 04/07/17 03:50 98.1 110 16 93/69 98 04/07/17 00:15 99.5 104 16 107/56 100 04/06/17 22:04 99.8 101 04/06/17 20:25 103.2 122 16 117/66 97 04/06/17 15:54 99.6 110 18 104/70 98 04/06/17 12:00 102.9 105 18 119/80 100 I/O 04/06/17 04/06/17 04/06/17 04/07/17 04/07/17 04/07/17 07:00 15:00 23:00 07:00 15:00 23:00 Intake Total 240 ml 720 ml 240 ml 480 ml Balance 240 ml 720 ml 240 ml 480 ml Intake Oral 240 ml 720 ml 240 ml 480 ml # Voids 2 3 2 2 # Bowel Movements 0 0 0 0 Result Diagram: 04/07/17 0654 04/06/17 0420 Imaging Last Impressions Upper Extremity Ultrasound 04/06/17 0000 Signed Impressions: Service Date/Time: Thursday, April 06, 2017 14:05 - CONCLUSION: No DVT left arm. Jacky Avery MD Chest X-Ray 04/06/17 0000 Signed Impressions: Service Date/Time: Thursday, April 06, 2017 20:46 - CONCLUSION: No acute disease. Alvaro Santiago MD Lower Extremity Ultrasound 04/04/17 0000 Signed Impressions: Service Date/Time: Tuesday, April 04, 2017 13:08 - CONCLUSION: 1. Deep venous thrombosis of the right leg. 2. Thrombosis of the left greater saphenous vein. 3. Popliteal cyst on the left. Jacky Avery MD Abdomen Ultrasound 04/04/17 0000 Signed Impressions: Service Date/Time: Tuesday, April 04, 2017 17:29 - CONCLUSION: Negative for an acute process. Pancreas is difficult to visualize because of patient body habitus.. Marino Lau MD FACR Objective Remarks GENERAL: This is a well-nourished, well-developed patient, in no apparent distress, lying in bed, leaning towards her right side. Breathing comfortably on room air SKIN: No rashes, ecchymoses or lesions. Area warmth and pain and tenderness to palpation of the left upper arm where the nicotine patch was originally placed HEAD: Atraumatic. Normocephalic. No temporal or scalp tenderness. EYES: Pupils equal round and reactive. Extraocular motions intact. No scleral icterus. No injection or drainage. ENT: Nose without bleeding, purulent drainage or septal hematoma. Throat without erythema, tonsillar hypertrophy or exudate. Uvula midline. Airway patent. NECK: Trachea midline. No JVD or lymphadenopathy. Supple, nontender, no meningeal signs. CARDIOVASCULAR: Regular rate and rhythm without murmurs, gallops, or rubs. RESPIRATORY: Clear to auscultation. Breath sounds equal bilaterally. No wheezes , rales, or rhonchi. GASTROINTESTINAL: Abdomen soft, nondistended. No hepato-splenomegaly, or palpable masses. No guarding. MUSCULOSKELETAL: Right lower extremity appears larger than the left lower extremity, tenderness in the posterior aspect of her right knee and same tenderness in the posterior aspect of the left knee. Tenderness in the left buttock. Nicotine patch on the left upper arm. NEUROLOGICAL: Awake and alert. Cranial nerves II through XII intact. Motor and sensory grossly within normal limits. Medications and IVs Current Medications Medications (Trade) Dose Ordered Sig/Wanda Route Start Time Stop Time Status Last Admin (NS Flush) 2 ml UNSCH PRN IV FLUSH 04/04/17 16:00 (NS Flush) 2 ml BID IV FLUSH 04/04/17 21:00 5/17/17 07:28 (Lovenox Inj) 80 mg Q12H SQ 04/05/17 03:00 04/07/17 02:56 (Morphine Inj) 2 mg Q4H PRN IV 04/04/17 16:00 04/06/17 10:38 (Zofran Inj) 4 mg Q6HR PRN IV PUSH 04/04/17 16:45 (Percocet 5-325 Mg) 1 tab Q4H PRN PO 04/05/17 10:15 (Percocet 5-325 Mg) 2 tab Q4H PRN PO 04/05/17 10:15 04/07/17 07:27 (Tylenol) 650 mg Q4H PRN PO 04/06/17 12:45 04/06/17 13:37 (Coumadin) 7.5 mg DAILY@16 PO 04/07/17 16:00 Miscellaneous Information ALL NURSING DEPARTME... UNSCH PRN OTHER 04/07/17 07:30 04/08/17 07:29 (Coumadin Booklet) 1 ONCE ONCE OTHER 04/07/17 16:00 04/07/17 16:01 A/P Assessment and Plan 36-year-old female with a history of right lower extremity DVT and asthma presents with a one-week history of left leg pain and right lower extremity pain and swelling found to have a DVT of her right lower extremity and thrombosis of the left greater saphenous vein. She will be admitted under observation for treatment with therapeutic Lovenox and bridging to warfarin. Discussed with Dr. Hopper, PGY 2 Discharge Planning Pending therapeutic INR of 2-3, possibly in the next 3-4 days. Problem List: (1) DVT (deep venous thrombosis) Status: Acute Plan: -Acute on chronic DVT of right lower extremity confirmed by lower extremity ultrasound -Hypercoagulable panel pending -Ultrasound abdomen was negative but did not view the pancreas appropriately -Started on therapeutic Lovenox 1 mg/kg twice a day - 83 mg twice a day -Continue warfarin bridge: Increase warfarin to 7.5, with one-time dose of 2.5 this morning -INR 1.0 on 04/07 -Percocet one tab every 4 when necessary pain 1-5 -Percocet 2 tab when necessary pain 5-10 -Morphine 2 mg IV every 4 when necessary for breakthrough pain -Zofran 4 mg IV when necessary nausea/vomiting -Case management consulted to assist with patient's medications -offered a blue card -Physical therapy consulted to assist with mobility -Heat treatments for left buttock and legs DVT Hx: -First DVT was in August 2009 - right femoral artery -November 2009-DVT of the right lower extremity -February 2015: DVT of the distal SFV, popliteal vein, and posterior tibial vein of the right lower extremity (2) Allergic reaction caused by a drug Status: Acute Plan: Believed allergic reaction to the nicotine patch. Area with a nicotine patch was placed became warm to the touch and painful. Ultrasound of the area of the arm did not show any hematoma, DVT, or blood clots. -Discontinue nicotine patch -Ice pack to be applied to the area of pain -1 time dose of Benadryl 50 mg (3) FEN/DVT PPX/GI PPX/Standard Orders Status: Acute Plan: Fluids: Oral fluids Electrolytes: Will monitor and replace as needed Nutrition: Regular adult diet DVT Prophylaxis: On therapeutic Lovenox with warfarin as above GI Prophylaxis: Not required -Monitor I's and O's -Continuous vital signs -Out of bed as tolerated Disposition: Patient will probably require up to 5 days to become therapeutic on warfarin Problem Qualifiers (1) DVT (deep venous thrombosis): Qualified Code: I82.4Y1 - Acute deep vein thrombosis (DVT) of proximal vein of right lower extremity Leandro Hopper MD R2 April 07, 2017 08:32
[2017-04-07] MEDS ORDERED: MAGNESIUM HYDROXIDE SUSP 30 ML CUP PO PRN (11:15)
[2017-04-07 12:00] VITALS: BP 101/65; PULSE 98; RESP 18; TEMP 99.3; O2SAT 99
[2017-04-07] MEDS: POLYETHYLENE GLYCOL 17 GM PKG PO SCH (13:25)
[2017-04-07] MEDS: DOCUSATE SODIUM 50 MG/SENNA 8.6 MG TAB PO SCH ×2 (13:25→21:03)
[2017-04-07 16:00] VITALS: BP 94/62; PULSE 105; RESP 18; TEMP 97.5; O2SAT 95
[2017-04-07] MEDS: WARFARIN SOD 7.5 MG TAB PO SCH (16:14)
[2017-04-07 20:00] VITALS: BP 113/64; PULSE 99; RESP 20; TEMP 99.4; O2SAT 99
[2017-04-07] MEDS: MORPHINE SULFATE 4 MG/ML INJ IV PRN (21:03)
[2017-04-08] VITALS (7 sets, daily range): BP systolic 98–124; BP diastolic 54–66; PULSE 72–97; RESP 16–18; TEMP 96.8–99.9; O2SAT 97–99
[2017-04-08] MEDS: oxyCODONE/ACETAMINOPHEN 5 MG/325 MG TAB PO PRN ×6 (00:53→23:05)
[2017-04-08] MEDS: ENOXAPARIN SODIUM 80 MG/0.8 ML SYRINGE SQ SCH ×2 (04:02→18:13)
[2017-04-08] MEDS: MORPHINE SULFATE 4 MG/ML INJ IV PRN ×3 (04:07→21:16)
[2017-04-08 07:39] LABS: AUTOMATED NEUTROPHIL # 21.2 TH/MM3 (1.8-7.7); BASOPHIL % 0.2 % (0.0-2.0); EOSINOPHIL # 0.1 TH/MM3 (0-0.4); EOSINOPHIL % 0.5 % (0.0-4.0); HEMATOCRIT 36.5 % (35.0-46.0); HEMO FLAGS DIFF FINAL; LYMPH % 7.2 % (9.0-44.0); LYMPHOCYTE # 1.8 TH/MM3 (1.0-4.8); MEAN CELL VOLUME 91.3 FL (80.0-100.0); MEAN CORPUSCULAR HEMOGLOBIN 30.4 PG (27.0-34.0); MEAN CORPUSCULAR HGB CONC 33.3 % (32.0-36.0); MONO % 8.1 % (0.0-8.0); PLATELET COUNT 287 TH/MM3 (150-450); RED BLOOD COUNT 3.99 MIL/MM3 (4.00-5.30); RED CELL DISTRIBUTION WIDTH 13.1 % (11.6-17.2); WHITE BLOOD COUNT 25.2 TH/MM3 (4.0-11.0)
[2017-04-08 07:49] LABS: INTERNATIONAL NORMALIZED RATIO 1.3 RATIO; PROTHROMBIN TIME - PATIENT 14.6 SEC (9.8-11.6)
[2017-04-08 07:59] LABS: BICARBONATE 31.1 MEQ/L (21.0-32.0); POTASSIUM 3.9 MEQ/L (3.5-5.1)
--- NOTE | 2017-04-08 08:30 | HHI.FPPN ---
Subjective Remarks Patient seen and examined this morning. Afebrile vital signs stable. She still has pain and mild erythema to the left arm with a nicotine patch as well as pneumonia shot were applied. She says is better today than it was yesterday. She says that ice helps. She denies any chest pain, shortness of breath, or burning with urination. Endorses: Left arm pain Denies: Fever, chills, nausea, vomiting, shortness of breath, chest pain, headache, abdominal pain, calf pain (Leandro Hopper MD R2) Objective Vitals Vital Signs Date Time Temp Pulse Resp B/P Pulse Ox O2 Delivery O2 Flow Rate FiO2 04/08/17 04:00 96.8 04/08/17 00:05 99.9 96 16 100/54 99 04/07/17 20:00 99.4 99 20 113/64 99 04/07/17 16:00 97.5 105 18 94/62 95 04/07/17 12:00 99.3 98 18 101/65 99 I/O 04/07/17 04/07/17 04/07/17 04/08/17 04/08/17 04/08/17 07:00 15:00 23:00 07:00 15:00 23:00 Intake Total 480 ml 600 ml 720 ml 240 ml Balance 480 ml 600 ml 720 ml 240 ml Intake Oral 480 ml 600 ml 720 ml 240 ml # Voids 2 3 2 1 # Bowel Movements 0 0 (Leandro Hopper MD R2) Result Diagram: 04/08/17 0704 04/08/17 0704 Imaging Last Impressions Upper Extremity Ultrasound 04/06/17 0000 Signed Impressions: Service Date/Time: Thursday, April 06, 2017 14:05 - CONCLUSION: No DVT left arm. Jacky Avery MD Chest X-Ray 04/06/17 0000 Signed Impressions: Service Date/Time: Thursday, April 06, 2017 20:46 - CONCLUSION: No acute disease. Alvaro Santiago MD Lower Extremity Ultrasound 04/04/17 0000 Signed Impressions: Service Date/Time: Tuesday, April 04, 2017 13:08 - CONCLUSION: 1. Deep venous thrombosis of the right leg. 2. Thrombosis of the left greater saphenous vein. 3. Popliteal cyst on the left. Jacky Avery MD Abdomen Ultrasound 04/04/17 0000 Signed Impressions: Service Date/Time: Tuesday, April 04, 2017 17:29 - CONCLUSION: Negative for an acute process. Pancreas is difficult to visualize because of patient body habitus.. Marino Lau MD FACR Objective Remarks GENERAL: This is a well-nourished, well-developed patient, in no apparent distress, lying in bed, leaning towards her right side. Breathing comfortably on room air SKIN: No rashes, ecchymoses or lesions. Area warmth and pain and tenderness to palpation of the left upper arm where the nicotine patch was originally placed HEAD: Atraumatic. Normocephalic. No temporal or scalp tenderness. EYES: Pupils equal round and reactive. Extraocular motions intact. No scleral icterus. No injection or drainage. ENT: Nose without bleeding, purulent drainage or septal hematoma. Throat without erythema, tonsillar hypertrophy or exudate. Uvula midline. Airway patent. NECK: Trachea midline. No JVD or lymphadenopathy. Supple, nontender, no meningeal signs. CARDIOVASCULAR: Regular rate and rhythm without murmurs, gallops, or rubs. RESPIRATORY: Clear to auscultation. Breath sounds equal bilaterally. No wheezes , rales, or rhonchi. GASTROINTESTINAL: Abdomen soft, nondistended. No hepato-splenomegaly, or palpable masses. No guarding. MUSCULOSKELETAL: Right lower extremity appears larger than the left lower extremity, tenderness in the posterior aspect of her right knee and same tenderness in the posterior aspect of the left knee. Tenderness in the left buttock. Nicotine patch on the left upper arm. NEUROLOGICAL: Awake and alert. Cranial nerves II through XII intact. Motor and sensory grossly within normal limits. Medications and IVs Current Medications Medications (Trade) Dose Ordered Sig/Wanda Route Start Time Stop Time Status Last Admin (NS Flush) 2 ml UNSCH PRN IV FLUSH 04/04/17 16:00 (NS Flush) 2 ml BID IV FLUSH 04/04/17 21:00 04/07/17 21:03 (Lovenox Inj) 80 mg Q12H SQ 04/05/17 03:00 04/08/17 04:02 (Morphine Inj) 2 mg Q4H PRN IV 04/04/17 16:00 04/08/17 04:07 (Zofran Inj) 4 mg Q6HR PRN IV PUSH 04/04/17 16:45 (Percocet 5-325 Mg) 1 tab Q4H PRN PO 04/05/17 10:15 (Percocet 5-325 Mg) 2 tab Q4H PRN PO 04/05/17 10:15 04/08/17 07:25 (Tylenol) 650 mg Q4H PRN PO 04/06/17 12:45 04/06/17 13:37 (Coumadin) 7.5 mg DAILY@16 PO 04/07/17 16:00 04/07/17 16:14 (Sariah-Colace) 2 tab BID PO 04/07/17 12:00 04/07/17 21:03 (Milk Of Magncesia Liq) 30 ml DAILY PRN PO 04/07/17 11:15 (Miralax) 17 gm DAILY PO 04/07/17 12:00 04/07/17 13:25 (Leandro Hopper MD R2) A/P Assessment and Plan 36-year-old female with a history of right lower extremity DVT and asthma presents with a one-week history of left leg pain and right lower extremity pain and swelling found to have a DVT of her right lower extremity and thrombosis of the left greater saphenous vein. She will be admitted under observation for treatment with therapeutic Lovenox and bridging to warfarin. WDW: Dr. Clements Discharge Planning Pending therapeutic INR of 2-3, possibly in the next 3-4 days. (Leandro Hopper MD R2) Attending Attestation Case reviewed and discussed with the resident team. Agree with plan of care as discussed with me and documented in the resident note. (Elton Clements MD) Problem List: (1) DVT (deep venous thrombosis) Status: Acute Plan: -Acute on chronic DVT of right lower extremity confirmed by lower extremity ultrasound -Hypercoagulable panel pending -Ultrasound abdomen was negative but did not view the pancreas appropriately -Started on therapeutic Lovenox 1 mg/kg twice a day - 83 mg twice a day -Continue warfarin bridge: Continue warfarin at 7.5 -INR 1.3 on 04/08 -Percocet one tab every 4 when necessary pain 1-5 -Percocet 2 tab when necessary pain 5-10 -Morphine 2 mg IV every 4 when necessary for breakthrough pain -Zofran 4 mg IV when necessary nausea/vomiting -Case management consulted to assist with patient's medications -offered a blue card -Physical therapy consulted to assist with mobility -Heat treatments for left buttock and legs DVT Hx: -First DVT was in August 2009 - right femoral artery -November 2009-DVT of the right lower extremity -February 2015: DVT of the distal SFV, popliteal vein, and posterior tibial vein of the right lower extremity (2) Allergic reaction caused by a drug Status: Acute Plan: Believed allergic reaction to the nicotine patch. Area with a nicotine patch was placed became warm to the touch and painful. Ultrasound of the area of the arm did not show any hematoma, DVT, or blood clots. -Discontinue nicotine patch -Ice pack to be applied to the area of pain -Continue to monitor at this time (3) FEN/DVT PPX/GI PPX/Standard Orders Status: Acute Plan: Fluids: Oral fluids Electrolytes: Will monitor and replace as needed Nutrition: Regular adult diet DVT Prophylaxis: On therapeutic Lovenox with warfarin as above GI Prophylaxis: Not required -Monitor I's and O's -Continuous vital signs -Out of bed as tolerated Disposition: Patient will probably require up to 5 days to become therapeutic on warfarin (Leandro Hopper MD R2) Problem Qualifiers (1) DVT (deep venous thrombosis): Qualified Code: I82.4Y1 - Acute deep vein thrombosis (DVT) of proximal vein of right lower extremity Leandro Hopper MD R2 April 08, 2017 08:30 Elton Clements MD April 09, 2017 13:07
[2017-04-08] MEDS: ACETAMINOPHEN 325 MG TAB PO PRN (09:20)
[2017-04-08] MEDS: DOCUSATE SODIUM 50 MG/SENNA 8.6 MG TAB PO SCH ×2 (09:22→21:00)
[2017-04-08] MEDS: POLYETHYLENE GLYCOL 17 GM PKG PO SCH (09:22)
[2017-04-08] MEDS: SODIUM CHLORIDE 0.9% FLUSH 10 ML FLUSH IV FLUSH SCH ×2 (09:24→21:07)
[2017-04-08] MEDS ORDERED: LACTULOSE SYRUP 20 GM/30 ML CUP PO PRN (12:00)
[2017-04-08] MEDS ORDERED: MAGNESIUM CITRATE SOLN 300 ML BTL PO ONE (14:00)
[2017-04-08] MEDS ORDERED: WARFARIN SOD 2.5 MG TAB PO ONE (16:00)
[2017-04-08] MEDS: WARFARIN SOD 7.5 MG TAB PO SCH (18:13)
[2017-04-09] MEDS: MORPHINE SULFATE 4 MG/ML INJ IV PRN ×4 (01:18→21:30)
[2017-04-09] MEDS: ENOXAPARIN SODIUM 80 MG/0.8 ML SYRINGE SQ SCH ×2 (02:25→14:36)
[2017-04-09 05:23] LABS: AUTOMATED NEUTROPHIL # 13.7 TH/MM3 (1.8-7.7); BASOPHIL # 0.1 TH/MM3 (0-0.2); BASOPHIL % 0.7 % (0.0-2.0); EOSINOPHIL # 0.2 TH/MM3 (0-0.4); EOSINOPHIL % 0.8 % (0.0-4.0); HEMATOCRIT 34.2 % (35.0-46.0); HEMO FLAGS DIFF FINAL; LYMPH % 15.9 % (9.0-44.0); LYMPHOCYTE # 2.9 TH/MM3 (1.0-4.8); MEAN CORPUSCULAR HEMOGLOBIN 32.3 PG (27.0-34.0); MEAN CORPUSCULAR HGB CONC 35.4 % (32.0-36.0); MONO % 6.8 % (0.0-8.0); NEUT % 75.8 % (16.0-70.0); PLATELET COUNT 332 TH/MM3 (150-450); RED BLOOD COUNT 3.76 MIL/MM3 (4.00-5.30); RED CELL DISTRIBUTION WIDTH 13.2 % (11.6-17.2)
[2017-04-09 05:40] LABS: INTERNATIONAL NORMALIZED RATIO 1.7 RATIO; PROTHROMBIN TIME - PATIENT 19.7 SEC (9.8-11.6)
[2017-04-09 05:58] LABS: BICARBONATE 30.7 MEQ/L (21.0-32.0)
[2017-04-09 06:02] LABS: POTASSIUM 4.4 MEQ/L (3.5-5.1)
[2017-04-09] MEDS: oxyCODONE/ACETAMINOPHEN 5 MG/325 MG TAB PO PRN ×5 (07:41→22:57)
[2017-04-09] MEDS: POLYETHYLENE GLYCOL 17 GM PKG PO SCH (07:42)
[2017-04-09] MEDS: DOCUSATE SODIUM 50 MG/SENNA 8.6 MG TAB PO SCH ×2 (07:42→21:00)
[2017-04-09 07:45] VITALS: BP 115/85; PULSE 94; RESP 16; TEMP 98.2; O2SAT 98
[2017-04-09] MEDS: SODIUM CHLORIDE 0.9% FLUSH 10 ML FLUSH IV FLUSH SCH ×2 (09:00→21:30)
[2017-04-09] MEDS ORDERED: LORazepam 2 MG/ML VIAL IV PUSH ONE (11:00)
[2017-04-09] MEDS ORDERED: IOHEXOL 350 MG/ML 10 ML VIAL (for RAD DIAG) IV ONE (11:41)
[2017-04-09 12:00] VITALS: BP 113/71; PULSE 90; RESP 16; TEMP 98; O2SAT 98
--- NOTE | 2017-04-09 12:03 | RADRPT ---
EXAM DATE/TIME: 04/09/2017 11:34 [facility] COMPARISON: No previous studies available for comparison. INDICATIONS : Known DVT in arm, Chest pain. Evaluate for possible pulmonary emoblism. IV CONTRAST: 50 cc Omnipaque 350 (iohexol) IV RADIATION DOSE: 13.29 CTDIvol (mGy) MEDICAL HISTORY : Deep venous thrombosis. SURGICAL HISTORY : Tubal ligation. ENCOUNTER: Initial ACUITY: 3 days PAIN SCALE: 0/10 LOCATION: chest TECHNIQUE: Volumetric scanning of the chest was performed using a pulmonary embolism protocol MIP images were re constructed. Using automated exposure control and adjustment of the mA and/or kV according to patien t size, radiation dose was kept as low as reasonably achievable to obtain optimal diagnostic quality images. FINDINGS: There is pulmonary blood involving the distal main and the lobar pulmonary artery on the right. There is segmental thrombus in the left lower lobe. A small lateral thrombus is present within the lingula . There is subsegmental atelectasis in the both bases. No pleural effusions are identified. Examination of the mediastinum demonstrates no abnormally enlarged lymph nodes by CT criteria. No axi llary or hilar abnormalities are identified. Coronary artery calcifications are not present. The visu alized upper abdomen demonstrates no abnormality. CONCLUSION: 1. Bilateral lower lobe pulmonary embolism right greater than left Artemio Ferreira MD on April 09, 2017 at 11:59 Board Certified Radiologist. This report was verified electronically.
--- NOTE | 2017-04-09 12:25 | HHI.FPPN ---
Subjective Remarks Pt was crying out in pain when the rounding team arrived at the room. She described sharp, piercing pain in her back that radiated to the back of her right breast. This was the second episode of pain this morning. The first episode occurred around 4 AM in the morning. Since then, the patient was afraid to go back to sleep. The second episode started just a few minutes before we arrived at the room. The nurse had just given her Percocet. Patient denied shortness of breath. O2 saturation performed in the room was 100%. (Norma Sharma MD R1) Objective Vitals Vital Signs Date Time Temp Pulse Resp B/P Pulse Ox O2 Delivery O2 Flow Rate FiO2 04/09/17 07:45 98.2 94 16 115/85 98 04/09/17 05:35 18 04/09/17 05:31 18 04/09/17 03:28 Room Air 04/09/17 00:05 18 04/08/17 23:55 97.4 91 16 98/55 98 04/08/17 19:55 96.8 97 16 106/66 97 04/08/17 16:25 97.9 74 18 124/60 97 I/O 04/08/17 04/08/17 04/08/17 04/09/17 04/09/17 04/09/17 07:00 15:00 23:00 07:00 15:00 23:00 Intake Total 240 ml 1080 ml 720 ml 480 ml Balance 240 ml 1080 ml 720 ml 480 ml Intake Oral 240 ml 1080 ml 720 ml 480 ml # Voids 1 5 4 4 # Bowel Movements 6 0 (Norma Sharma MD R1) Result Diagram: 04/09/17 0502 04/09/17 0502 Objective Remarks GENERAL: This is a well-nourished, well-developed patient, appears to be in severe pain SKIN: No rashes, ecchymoses or lesions. HEAD: Atraumatic. Normocephalic. No temporal or scalp tenderness. EYES: Pupils equal round and reactive. Extraocular motions intact. No scleral icterus. No injection or drainage. ENT: Nose without bleeding, purulent drainage or septal hematoma. Throat without erythema, tonsillar hypertrophy or exudate. Uvula midline. Airway patent. NECK: Trachea midline. No JVD or lymphadenopathy. Supple, nontender, no meningeal signs. CARDIOVASCULAR: Regular rate and rhythm without murmurs, gallops, or rubs. RESPIRATORY: Clear to auscultation. Breath sounds equal bilaterally. No wheezes , rales, or rhonchi. GASTROINTESTINAL: Abdomen soft, nondistended. No hepato-splenomegaly, or palpable masses. No guarding. MUSCULOSKELETAL: Tender to palpation on her right side lateral to her right breast NEUROLOGICAL: Awake and alert. Cranial nerves II through XII intact. Motor and sensory grossly within normal limits. (Norma Sharma MD R1) A/P Assessment and Plan 36-year-old female with a history of right lower extremity DVT and asthma presents with a one-week history of left leg pain and right lower extremity pain and swelling found to have a DVT of her right lower extremity and thrombosis of the left greater saphenous vein. She was admitted under observation for treatment with therapeutic Lovenox and bridging to warfarin. On 04/09/17, patient developed excruciating pain in her back and right side underneath her right breast. A stat pulmonary angiogram was performed that showed a segmental thrombosis in the left lower lobe and a small lateral thrombosis within the lingula. The right pulmonary embolism is greater than the left. Based on these results, hematology has been consulted to provide recommendations for further management. Seen and examined with Dr. Hopper, PGY [address] Clements Discharge Planning Pending therapeutic INR of 2-3 and management of acute PE. We will wait on hematology recommendations (Norma Sharma MD R1) Attending Attestation Patient seen and examined. Case reviewed and discussed with the resident team. Agree with plan of care as discussed with me and documented in the resident note. (Elton Clements MD) Problem List: (1) Pulmonary emboli Status: Acute Plan: -Due to patient's complaints of severe back pain, a stat pulmonary angiogram was performed which showed segmental thrombosis in the left lower lobe and a small lateral thrombosis within the lingula. The right pulmonary embolism is greater than the left -Hematology has been consulted to provide recommendations for further management (2) DVT (deep venous thrombosis) Status: Acute Plan: -Acute on chronic DVT of right lower extremity confirmed by lower extremity ultrasound -Hypercoagulable panel pending -Ultrasound abdomen was negative but did not view the pancreas appropriately -Started on therapeutic Lovenox 1 mg/kg twice a day - 83 mg twice a day -Continue warfarin bridge: Continue warfarin at 7.5mg daily -INR 1.7 on 04/09 -Percocet one tab every 4 when necessary pain 1-5 -Percocet 2 tab when necessary pain 5-10 -Morphine 2 mg IV every 4 when necessary for breakthrough pain -Zofran 4 mg IV when necessary nausea/vomiting -Case management consulted to assist with patient's medications -offered a blue card -Physical therapy consulted to assist with mobility -Heat treatments for left buttock and legs DVT Hx: -First DVT was in August 2009 - right femoral artery -November 2009-DVT of the right lower extremity -February 2015: DVT of the distal SFV, popliteal vein, and posterior tibial vein of the right lower extremity (3) Allergic reaction caused by a drug Status: Acute Plan: Believed allergic reaction to the nicotine patch. Area with a nicotine patch was placed became warm to the touch and painful. Ultrasound of the area of the arm did not show any hematoma, DVT, or blood clots. -Discontinue nicotine patch -Ice pack to be applied to the area of pain -Continue to monitor at this time (4) FEN/DVT PPX/GI PPX/Standard Orders Status: Acute Plan: Fluids: Oral fluids Electrolytes: Will monitor and replace as needed Nutrition: Regular adult diet DVT Prophylaxis: On therapeutic Lovenox with warfarin as above GI Prophylaxis: Not required -Monitor I's and O's -Continuous vital signs -Out of bed as tolerated Disposition: Uncertain secondary to pulmonary embolus diagnosed today (Norma Sharma MD R1) Problem Qualifiers (1) Pulmonary emboli: Qualified Code: I26.99 - Other acute pulmonary embolism without acute cor pulmonale (2) DVT (deep venous thrombosis): Qualified Code: I82.4Y1 - Acute deep vein thrombosis (DVT) of proximal vein of right lower extremity Norma Sharma MD R1 April 09, 2017 12:25 Elton Clements MD April 09, 2017 16:35
[2017-04-09] MEDS: WARFARIN SOD 7.5 MG TAB PO SCH (14:37)
[2017-04-09] MEDS ORDERED: LORazepam 0.5 MG TAB PO PRN (16:00)
[2017-04-09 16:17] VITALS: BP 120/70; PULSE 84; RESP 16; TEMP 97.6; O2SAT 99
[2017-04-09 19:00] VITALS: BP 117/77; PULSE 91; RESP 17; TEMP 96.9; O2SAT 100
[2017-04-09 19:43] VITALS: PULSE 89
--- NOTE | 2017-04-09 22:38 | MB ---
cc: KLAUDIA SHARMA MD, RUBY ANNE E. M.D. 1980 DATE OF SERVICE 04/09/[address] lKaudia Sharma. CHIEF COMPLAINT Dr. Vidal requests a consultation for Mrs. Haddad with bilateral lower extremity deep vein thromboses associated with pulmonary embolism. HISTORY OF PRESENT ILLNESS Mrs. Haddad is a 36-year-old woman with long history of tobacco use, asthma and alcohol abuse. She developed her first right lower extremity provoked deep vein thromboses. She was and was placed on oral contraceptives. She was placed on anticoagulant therapy with low-molecular weight heparin bridged to Coumadin. She reports taking Coumadin for several years. She ran out of insurance and stopped her anticoagulation. Four years later, she was placed on low-molecular weight heparin for a subsequent . She denies any recurrent venous thromboembolic event during that time. Her second recurrence occurred unprovoked about three years ago. She denies any precipitating event. She was not on anticoagulant therapy prophylaxis. She developed a recurrent right lower extremity deep vein thromboses. She was again placed on Coumadin for proximally two years and stopped again. She denies any precipitating event at this time except for smoking. She is not on oral contraceptives. She denies any period of immobility. She noted some swelling in the right leg which is chronic since her recurrent deep vein thromboses, but she had left leg pain. The left leg pain was new. She presented to the emergency room and ultrasound of the lower extremity was performed on April 04, 2017 that showed right leg with incomplete, compressibility of deep veins in the common femoral, femoral popliteal, posterior tibial and changes in the greater saphenous vein. The left leg presence of a Solis cyst measuring 6.7 x 1.2 cm and thrombus is seen within the greater saphenous vein on the left. Correlating her history of deep vein thromboses, doppler Ultrasound of the right leg from 09/19/[address] Marte shows extensive deep vein thromboses of the right lower extremity from the right iliac vein to the right peroneal vein. A follow-up ultrasound on December 10, 2009 showed extensive deep vein thromboses involving the right lower extremity which suggests chronicity of the process. On July 29, 2010, deep vein thromboses appears to be sonographically unchanged. Ultrasound on 08/15/2011 shows a nonocclusive thrombus scattered throughout the popliteal vein into the common femoral vein. The majority of it is chronic. Ultrasound from October 10, 2012 shows extensive nonocclusive thrombus within the right iliac, common femoral, superficial femoral, popliteal and peroneal veins are more extensive than previous. No deep vein thromboses of the left is seen. On April 30, 2013 showed old thrombus in the right iliac and common femoral vein, no acute thromboses. The last ultrasound on record from February 23, 2015 shows distal through superficial femoral vein, popliteal vein and posterior vein deep vein thromboses of the right lower extremity. During her hospitalization, she was started promptly on low-molecular weight heparin 80 mg subcu q.12 h. An hour later, she was started on warfarin 5 mg. She was continued on 5 mg for two days and increased to 8.5 mg on day three and subsequently had been on 7.5 mg ever since. Temporally related to taking the 8.5 mg, her heart rate went up to the 100s. She became symptomatic with chest pain on day 18. Finally a CT angiogram showed bilateral lower pulmonary embolism of the right greater than the left. Hematology/Oncology is consulted for question regarding utility of filter at this juncture and recommendations regarding anticoagulant therapy. Thrombophilia workup is still pending. Results for protein C, protein S are still pending. Antithrombin activity is in the normal range. Beta-2 glycoprotein 1 antibody, anticardiolipin antibody appear to be negative. Her hemoglobin is stable. Platelet count is normal. She has improvement of symptoms in the left leg but has new shortness of breath and pleuritic like chest pains. PAST MEDICAL HISTORY 1. 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 Asthma 3. Alcohol abuse. 4. Smoking addiction. 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 SOCIAL HISTORY She lives with her who has a problem with alcohol. She has two daughters, ages nine and five, who are living with her mother. Her eldest son 19 is in the . ALLERGIES PENICILLIN MEDICATIONS Current, 1. Lorazepam p.r.n. 2. Lactulose. 3. Warfarin 7.5 mg once a day. 4. Enoxaparin 80 mg q.12 h. 5. Morphine p.r.n. 6. Zofran p.r.n. PHYSICAL EXAMINATION VITAL SIGNS: Temperature 97.6, heart rate 84, respiratory rate 16, blood pressure 120/70, saturation 99% GENERAL: Ms. Haddad is a well-developed, well-nourished woman who looks mildly anxious. HEENT: Her pupils are round, reactive to light and accommodation. Oropharynx is clear. NECK: Supple. LUNGS: Clear. CARDIOVASCULAR: Normal rate, rhythm. ABDOMEN: Benign. No ecchymotic area. Injection site is noted but are small. EXTREMITIES: Lower extremity asymmetry right leg more prominent than the left. Good pulses are palpable. NEUROLOGIC: Exam is nonfocal. There is chronic venous insufficiency and chronic changes in the right leg. LABORATORY DATA Significant for mild leukocytosis, predominately in neutrophils. Hemoglobin of 12.1, platelet count 332. Renal function is normal, antithrombin III activity is normal. ASSESSMENT/PLAN Ms. Haddad is a 36-year-old woman with a history of chronic tobacco use and recurrent right lower extremity deep vein thromboses. The first deep vein thromboses was provoked, the subsequent ones appear to be unprovoked, but she has significant postphlebitic syndrome. Review of the ultrasounds dating back that were available since 2008 showed residual chronic thrombus in the right lower leg. She denies any precipitating event for development of deep vein thromboses in the left side. Suspect her smoking has contributed to this. She is advised not to smoke anymore. It is unclear as to what has precipitated pulmonary embolism except for the nature of venous thromboembolic event. She was still subtherapeutic in her anticoagulant therapy with Coumadin at the time of her pulmonary embolism symptoms. Her heart rate started to go up on 04/06. Her INR was 1.0. Interestingly, her enoxaparin continued at 80 mg subcu q.12 h. I consider possibility of optimizing the enoxaparin to 100 mg subcu q.12 h. There is no sign of antithrombin deficiency, however, this dose of low-molecular weight heparin may not be sufficient. It is quite possible that she has significant protein S deficiency with the acute clot. This is made worse with warfarin that inhibits protein C, protein S first prior to the larger anticoagulant proteins. In this manner, the patient's hypercoagulable short-term before full anticoagulant activity is present. We discussed the risks and benefit of increasing enoxaparin. I recommend against a filter. I will observe her in next 24 hours. She remembers that her Coumadin dose was 7.5 mg but thought that her pill color was orange which is a 5 mg tablet. Nevertheless, we will follow PT/INR. 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 She is encouraged to wear support hose. I anticipate her discharge once her therapeutic and symptoms from pulmonary embolism has resolved. So far, heart rate has returned back to normal, although she has some pain. She is encouraged to take lorazepam for her anxiety. Her questions were answered to her satisfaction. MD JUAN JOSÉ Soler/ /8:47 PM /10:04 PM
[2017-04-09 23:39] VITALS: BP 104/61; PULSE 89; RESP 16; TEMP 97.8; O2SAT 99
[2017-04-10] MEDS ORDERED: ENOXAPARIN SODIUM 100 MG/ML SYRINGE SQ SCH (03:00)
[2017-04-10] MEDS: oxyCODONE/ACETAMINOPHEN 5 MG/325 MG TAB PO PRN ×5 (03:06→22:54)
[2017-04-10 04:00] VITALS: BP 109/66; PULSE 80; RESP 15; TEMP 97.4; O2SAT 98
[2017-04-10 05:32] LABS: INTERNATIONAL NORMALIZED RATIO 2.5 RATIO; PROTHROMBIN TIME - PATIENT 28.5 SEC (9.8-11.6)
[2017-04-10 05:34] LABS: AUTOMATED NEUTROPHIL # 7.2 TH/MM3 (1.8-7.7); BASOPHIL # 0.1 TH/MM3 (0-0.2); BASOPHIL % 0.5 % (0.0-2.0); EOSINOPHIL # 0.2 TH/MM3 (0-0.4); EOSINOPHIL % 2.1 % (0.0-4.0); HEMATOCRIT 34.7 % (35.0-46.0); HEMO FLAGS DIFF FINAL; LYMPH % 24.2 % (9.0-44.0); LYMPHOCYTE # 2.7 TH/MM3 (1.0-4.8); MEAN CELL VOLUME 91.3 FL (80.0-100.0); MEAN CORPUSCULAR HEMOGLOBIN 30.1 PG (27.0-34.0); MONO % 7.9 % (0.0-8.0); NEUT % 65.3 % (16.0-70.0); PLATELET COUNT 379 TH/MM3 (150-450); RED CELL DISTRIBUTION WIDTH 13.6 % (11.6-17.2); WHITE BLOOD COUNT 11.1 TH/MM3 (4.0-11.0)
[2017-04-10 05:37] LABS: BICARBONATE 25.9 MEQ/L (21.0-32.0); POTASSIUM 3.8 MEQ/L (3.5-5.1)
[2017-04-10] MEDS: MORPHINE SULFATE 4 MG/ML INJ IV PRN ×4 (05:50→20:37)
--- NOTE | 2017-04-10 07:16 | HHI.FPPN ---
Subjective Remarks Patient is doing well this morning. She is not in as much pain as yesterday. She said that she feels much better especially after speaking with the shells inspector yesterday. Her leg pain is much improved bilaterally. She still has back pain but this much reduced. (Norma Sharma MD R1) Objective Vitals Vital Signs Date Time Temp Pulse Resp B/P Pulse Ox O2 Delivery O2 Flow Rate FiO2 04/10/17 04:00 97.4 80 15 109/66 98 04/09/17 23:39 97.8 89 16 104/61 99 04/09/17 19:43 89 04/09/17 19:00 96.9 91 17 117/77 100 04/09/17 16:17 97.6 84 16 120/70 99 04/09/17 12:00 98.0 90 16 113/71 98 04/09/17 07:45 98.2 94 16 115/85 98 I/O 04/09/17 04/09/17 04/09/17 04/10/17 04/10/17 04/10/17 07:00 15:00 23:00 07:00 15:00 23:00 Intake Total 480 ml 980 ml 480 ml 670 ml Balance 480 ml 980 ml 480 ml 670 ml Intake Oral 480 ml 980 ml 480 ml 480 ml IV Total 190 ml # Voids 4 4 3 2 # Bowel Movements 0 0 0 (Norma Sharma MD R1) Result Diagram: 04/10/17 0357 04/10/17 0359 Objective Remarks GENERAL: This is a well-nourished, well-developed patient, in no acute distress SKIN: No rashes, ecchymoses or lesions. HEAD: Atraumatic. Normocephalic. No temporal or scalp tenderness. EYES: Pupils equal round and reactive. Extraocular motions intact. No scleral icterus. No injection or drainage. ENT: Nose without bleeding, purulent drainage or septal hematoma. Throat without erythema, tonsillar hypertrophy or exudate. Uvula midline. Airway patent. NECK: Trachea midline. No JVD or lymphadenopathy. Supple, nontender, no meningeal signs. CARDIOVASCULAR: Regular rate and rhythm without murmurs, gallops, or rubs. RESPIRATORY: Clear to auscultation. Breath sounds equal bilaterally. No wheezes , rales, or rhonchi. GASTROINTESTINAL: Abdomen soft, nondistended. No hepato-splenomegaly, or palpable masses. No guarding. MUSCULOSKELETAL: Tender to palpation on her right side lateral to her right breast. Bilateral calf tenderness but much improved from previous exams. NEUROLOGICAL: Awake and alert. Cranial nerves II through XII intact. Motor and sensory grossly within normal limits. (Norma Sharma MD R1) A/P Assessment and Plan 36-year-old female with a history of right lower extremity DVT and asthma presents with a one-week history of left leg pain and right lower extremity pain and swelling found to have a DVT of her right lower extremity and thrombosis of the left greater saphenous vein. She was admitted under observation for treatment with therapeutic Lovenox and bridging to warfarin. On 04/09/17, patient developed excruciating pain in her back and right side underneath her right breast. A stat pulmonary angiogram was performed that showed a segmental thrombosis in the left lower lobe and a small lateral thrombosis within the lingula. The right pulmonary embolism is greater than the left. Based on these results, hematology has been consulted to provide recommendations for further management. Lovenox was increased by the shells inspector to 100 mg twice a day. INR became therapeutic at 2.5 on 04/10. Discussed with Dr. Clements Discharge Planning INR is now therapeutic at 2.5. Possibly tomorrow or in the next 2 days. Will like to observe patient after increase in therapeutic Lovenox (Norma Sharma MD R1) Attending Attestation Case reviewed and discussed with the resident team. Agree with plan of care as discussed with me and documented in the resident note. (Elton Clements MD) Problem List: (1) Pulmonary emboli Status: Acute Plan: -Due to patient's complaints of severe back pain, a stat pulmonary angiogram was performed which showed segmental thrombosis in the left lower lobe and a small lateral thrombosis within the lingula. The right pulmonary embolism is greater than the left -Hematology was consulted to provide recommendations for further management and increased Lovenox to 100 mg twice a day (2) DVT (deep venous thrombosis) Status: Acute Plan: -Acute on chronic DVT of right lower extremity confirmed by lower extremity ultrasound -Hypercoagulable panel pending -Ultrasound abdomen was negative but did not view the pancreas appropriately -Continue therapeutic Lovenox 1 mg/kg twice a day -100 mg twice a day -Continue warfarin bridge: Continue warfarin at 7.5mg daily -Pharmacy consulted for discharge warfarin recommendations -INR 2.5 on 04/10 -Percocet one tab every 4 when necessary pain 1-5 -Percocet 2 tab when necessary pain 5-10 -Morphine 2 mg IV every 4 when necessary for breakthrough pain -Zofran 4 mg IV when necessary nausea/vomiting -Ativan 0.5 mg by mouth every 8 hours when necessary anxiety -Case management consulted to assist with patient's medications -offered a blue card -Physical therapy consulted to assist with mobility -Heat treatments for left buttock and legs DVT Hx: -First DVT was in August 2009 - right femoral artery -November 2009-DVT of the right lower extremity -February 2015: DVT of the distal SFV, popliteal vein, and posterior tibial vein of the right lower extremity (3) Allergic reaction caused by a drug Status: Acute Plan: Believed allergic reaction to the nicotine patch. Area with a nicotine patch was placed became warm to the touch and painful. Ultrasound of the area of the arm did not show any hematoma, DVT, or blood clots. -Discontinue nicotine patch -Ice pack to be applied to the area of pain -Continue to monitor at this time (4) FEN/DVT PPX/GI PPX/Standard Orders Status: Acute Plan: Fluids: Oral fluids Electrolytes: Will monitor and replace as needed Nutrition: Regular adult diet DVT Prophylaxis: On therapeutic Lovenox with warfarin as above GI Prophylaxis: Not required -Monitor I's and O's -Continuous vital signs -Out of bed as tolerated (Norma Sharma MD R1) Problem Qualifiers (1) Pulmonary emboli: Qualified Code: I26.99 - Other acute pulmonary embolism without acute cor pulmonale (2) DVT (deep venous thrombosis): Qualified Code: I82.4Y1 - Acute deep vein thrombosis (DVT) of proximal vein of right lower extremity Norma Sharma MD R1 April 10, 2017 07:16 Elton Clements MD April 12, 2017 09:07
[2017-04-10 08:00] VITALS: BP 95/64; PULSE 74; RESP 19; TEMP 97.3; O2SAT 99
[2017-04-10] MEDS: POLYETHYLENE GLYCOL 17 GM PKG PO SCH (08:50)
[2017-04-10] MEDS: DOCUSATE SODIUM 50 MG/SENNA 8.6 MG TAB PO SCH ×2 (08:50→20:32)
[2017-04-10] MEDS: SODIUM CHLORIDE 0.9% FLUSH 10 ML FLUSH IV FLUSH SCH ×2 (08:59→20:33)
--- NOTE | 2017-04-10 09:48 | PD.ONC.PN ---
Subjective Subjective Remarks Afebrile overnight. patient resting comfortably in bed. No bleeding. No pain. Tolerating Lovenox injections. Objective Data Date Time Temp Pulse Resp B/P Pulse Ox O2 Delivery O2 Flow Rate FiO2 04/10/17 04:00 97.4 80 15 109/66 98 04/09/17 23:39 97.8 89 16 104/61 99 04/09/17 19:43 89 04/09/17 19:00 96.9 91 17 117/77 100 04/09/17 16:17 97.6 84 16 120/70 99 04/09/17 12:00 98.0 90 16 113/71 98 04/10/17 04/10/17 04/10/17 07:00 15:00 23:00 Intake Total 670 ml Balance 670 ml Result Diagram: 04/10/17 0357 04/10/17 0359 Laboratory Results Laboratory Tests Test 04/10/17 04/10/17 03:57 03:59 White Blood Count 11.1 TH/MM3 Red Blood Count 3.80 MIL/MM3 Hemoglobin 11.4 GM/DL Hematocrit 34.7 % Mean Corpuscular Volume 91.3 FL Mean Corpuscular Hemoglobin 30.1 PG Mean Corpuscular Hemoglobin 33.0 % Concent Red Cell Distribution Width 13.6 % Platelet Count 379 TH/MM3 Mean Platelet Volume 8.1 FL Neutrophils (%) (Auto) 65.3 % Lymphocytes (%) (Auto) 24.2 % Monocytes (%) (Auto) 7.9 % Eosinophils (%) (Auto) 2.1 % Basophils (%) (Auto) 0.5 % Neutrophils # (Auto) 7.2 TH/MM3 Lymphocytes # (Auto) 2.7 TH/MM3 Monocytes # (Auto) 0.9 TH/MM3 Eosinophils # (Auto) 0.2 TH/MM3 Basophils # (Auto) 0.1 TH/MM3 CBC Comment DIFF FINAL Differential Comment Prothrombin Time 28.5 SEC Prothromb Time International 2.5 RATIO Ratio Sodium Level 139 MEQ/L Potassium Level 3.8 MEQ/L Chloride Level 102 MEQ/L Carbon Dioxide Level 25.9 MEQ/L Anion Gap 11 MEQ/L Blood Urea Nitrogen 8 MG/DL Creatinine 0.41 MG/DL Estimat Glomerular Filtration 210 ML/MIN Rate Random Glucose 81 MG/DL Calcium Level 8.6 MG/DL Administered Medications Medications (Trade) Dose Ordered Sig/Wanda Route PRN Reason Start Time Stop Time Status Last Admin Dose Admin Sodium Chloride (NS Flush) 2 ml BID IV FLUSH 04/04/17 21:00 04/10/17 08:59 Morphine Sulfate (Morphine Inj) 2 mg Q4H PRN IV BREAKTHROUGH PAIN 04/04/17 16:00 04/10/17 05:50 Oxycodone/ Acetaminophen (Percocet 5-325 Mg) 1 tab Q4H PRN PO PAIN SCALE 1 TO 5 04/05/17 10:15 04/08/17 13:09 Oxycodone/ Acetaminophen (Percocet 5-325 Mg) 2 tab Q4H PRN PO PAIN SCALE 6 TO 10 04/05/17 10:15 04/10/17 08:51 Acetaminophen (Tylenol) 650 mg Q4H PRN PO TEMPERATURE > 100.5 F 04/06/17 12:45 04/08/17 09:20 Warfarin Sodium (Coumadin) 7.5 mg DAILY@16 PO 04/07/17 16:00 04/09/17 14:37 Senna/Docusate Sodium (Sariah-Colace) 2 tab BID PO 04/07/17 12:00 04/10/17 08:50 Polyethylene Glycol (Miralax) 17 gm DAILY PO 04/07/17 12:00 04/10/17 08:50 Enoxaparin Sodium (Lovenox Inj) 100 mg Q12H SQ 04/10/17 03:00 04/11/17 02:59 04/10/17 03:03 Objective Remarks GENERAL: Young woman, lying in bed in nad. SKIN: Warm and dry. HEAD: Normocephalic. EYES: no injection or drainage. NECK: Supple, trachea midline. CARDIOVASCULAR: Regular rate and rhythm RESPIRATORY: Breath sounds equal bilaterally. No accessory muscle use. GASTROINTESTINAL: Abdomen soft, non-tender, nondistended. EXTREMITIES: No cyanosis NEUROLOGICAL: No obvious focal deficit. Awake, alert, and oriented x3. Assessment/Plan Problem List: (1) Pulmonary emboli Status: Acute Plan: --Lovenox at optimized dose of 100mg SQ BID --no sign of antithrombin deficiency, however, this dose of low-molecular weight heparin may not be sufficient. --It is quite possible that she has significant protein S deficiency with the acute clot. This is made worse with warfarin that inhibits protein C, protein S first prior to the larger anticoagulant proteins. In this manner, the patient 's hypercoagulable short-term before full anticoagulant activity is present. --anticipate her discharge once her therapeutic and symptoms from pulmonary embolism has resolved. (2) DVT (deep venous thrombosis) Status: Acute Assessment 36y/o female with bilateral lower extremity deep vein thromboses associated with pulmonary embolism. History: (from initial consult) Mrs. Haddad is a 36-year-old woman with long history of tobacco use, asthma and alcohol abuse. She developed her first right lower extremity provoked deep vein thromboses. She was and was placed on oral contraceptives. She was placed on anticoagulant therapy with low-molecular weight heparin bridged to Coumadin. She reports taking Coumadin for several years. She ran out of insurance and stopped her anticoagulation. Four years later, she was placed on low-molecular weight heparin for a subsequent . She denies any recurrent venous thromboembolic event during that time. Her second recurrence occurred unprovoked about three years ago. She denies any precipitating event. She was not on anticoagulant therapy prophylaxis. She developed a recurrent right lower extremity deep vein thromboses. She was again placed on Coumadin for proximally two years and stopped again. She denies any precipitating event at this time except for smoking. She is not on oral contraceptives. She denies any period of immobility. She noted some swelling in the right leg which is chronic since her recurrent deep vein thromboses, but she had left leg pain. The left leg pain was new. She presented to the emergency room and ultrasound of the lower extremity was performed on April 04, 2017 that showed right leg with incomplete, compressibility of deep veins in the common femoral, femoral popliteal, posterior tibial and changes in the greater saphenous vein. The left leg presence of a Solis cyst measuring 6.7 x 1.2 cm and thrombus is seen within the greater saphenous vein on the left. During her hospitalization, she was started promptly on low-molecular weight heparin 80 mg subcu q.12 h. An hour later, she was started on warfarin 5 mg. She was continued on 5 mg for two days and increased to 8.5 mg on day three and subsequently had been on 7.5 mg ever since. Temporally related to taking the 8.5 mg, her heart rate went up to the 100s. She became symptomatic with chest pain on day 18. Finally a CT angiogram showed bilateral lower pulmonary embolism of the right greater than the left. Hematology/Oncology is consulted for question regarding utility of filter at this juncture and recommendations regarding anticoagulant therapy. Plan 1. stop Lovenox 2. clear for discharge on coumadin 3. follow up in clinic. Attending Statement The exam, history, and the medical decision-making described in the above note were completed with the assistance of the mid-level provider. I reviewed and agree with the findings presented. I attest that I had a [id number] encounter with the patient on the same day, and personally performed and documented my assessment and findings in the medical record. No complaints this AM, feels better. INR therapeutic. Anticipate DC Jose R continue on current dose of Coumadin. Pt will need PCP to continue pt/inr checks. She's very familiar with Coumadin. In light of recurrent clots, now bilateral, unprovoked, she would benefit from direct marketing intern anticoagulant therapy. Encourage to stop smoking. Problem Qualifiers (1) Pulmonary emboli: Qualified Code: I26.99 - Other acute pulmonary embolism without acute cor pulmonale (2) DVT (deep venous thrombosis): Qualified Code: I82.4Y1 - Acute deep vein thrombosis (DVT) of proximal vein of right lower extremity Amber Foreman April 10, 2017 09:48 Elke Underwood MD April 10, 2017 15:16
[2017-04-10] MEDS: SODIUM CHLORIDE 0.9% FLUSH 10 ML FLUSH IV FLUSH PRN ×2 (11:30→15:51)
[2017-04-10 12:00] VITALS: BP 118/72; PULSE 82; RESP 18; TEMP 97.4; O2SAT 98
[2017-04-10 16:00] VITALS: BP 137/78; PULSE 88; RESP 18; TEMP 97; O2SAT 100
[2017-04-10] MEDS ORDERED: WARFARIN SOD 5 MG TAB PO SCH (16:00)
[2017-04-10 19:54] LABS: THROMBIN TIME FOR LA ND sec (13-19)
[2017-04-10 20:00] VITALS: BP 100/66; PULSE 89; RESP 18; TEMP 97.6; O2SAT 98
[2017-04-11] VITALS: BP 97/69; PULSE 80; RESP 18; TEMP 97.6; O2SAT 99
[2017-04-11 00:19] VITALS: PULSE 93
[2017-04-11 04:00] VITALS: BP 96/60; PULSE 80; RESP 20; TEMP 98.2; O2SAT 99
[2017-04-11] MEDS: oxyCODONE/ACETAMINOPHEN 5 MG/325 MG TAB PO PRN ×3 (05:16→14:54)
[2017-04-11 05:51] LABS: HEMATOCRIT 35.5 % (35.0-46.0); MEAN CELL VOLUME 90.5 FL (80.0-100.0); MEAN CORPUSCULAR HEMOGLOBIN 30.7 PG (27.0-34.0); MEAN CORPUSCULAR HGB CONC 33.9 % (32.0-36.0); PLATELET COUNT 463 TH/MM3 (150-450); RED BLOOD COUNT 3.92 MIL/MM3 (4.00-5.30); RED CELL DISTRIBUTION WIDTH 13.4 % (11.6-17.2); REVIEW FLAG FINAL; WHITE BLOOD COUNT 8.3 TH/MM3 (4.0-11.0)
[2017-04-11 05:55] LABS: INTERNATIONAL NORMALIZED RATIO 1.9 RATIO; PROTHROMBIN TIME - PATIENT 22.1 SEC (9.8-11.6)
[2017-04-11 05:56] LABS: BICARBONATE 27.9 MEQ/L (21.0-32.0); POTASSIUM 3.8 MEQ/L (3.5-5.1)
[2017-04-11 07:51] LABS: PHOSPHATIDYLSERINE AB IGA LESS THAN 20.0 U/mL (()); PHOSPHATIDYLSERINE AB IGM LESS THAN 25.0 U/mL (())
[2017-04-11 08:00] VITALS: BP 101/55; PULSE 79; RESP 18; TEMP 97.3; O2SAT 100
[2017-04-11] MEDS ORDERED: ENOXAPARIN SODIUM 100 MG/ML SYRINGE SQ ONE (08:00)
[2017-04-11 08:03] VITALS: PULSE 78
--- NOTE | 2017-04-11 08:32 | HHI.FPPN ---
Subjective Remarks Patient seen and examined this morning. Afebrile vital signs stable. Patient is looking forward to going home today. Her INR was 1.9. After discussing this with patient she agrees with using 7.5 mg of warfarin. Spoke with case management and they will be assisting patient to get blue card prior to discharge today. Endorses: Pain in left arm, mild shortness of breath Denies: Fever, chills, nausea, vomiting, chest pain, headache, abdominal pain, calf pain (Leandro Hopper MD R2) Objective Vitals Vital Signs Date Time Temp Pulse Resp B/P Pulse Ox O2 Delivery O2 Flow Rate FiO2 04/11/17 04:00 98.2 80 20 96/60 99 04/11/17 00:19 93 04/11/17 00:00 97.6 80 18 97/69 99 04/10/17 20:00 97.6 89 18 100/66 98 04/10/17 16:00 97.0 88 18 137/78 100 04/10/17 16:00 88 04/10/17 12:00 97.4 82 18 118/72 98 I/O 04/10/17 04/10/17 04/10/17 04/11/17 04/11/17 04/11/17 07:00 15:00 23:00 07:00 15:00 23:00 Intake Total 670 ml 1500 ml 240 ml Balance 670 ml 1500 ml 240 ml Intake Oral 480 ml 1500 ml 240 ml IV Total 190 ml # Voids 2 6 1 # Bowel Movements 0 0 0 (Leandro Hopper MD R2) Result Diagram: 04/11/17 0506 04/11/17 [address] Angiography 04/09/17 0000 Signed Impressions: Service Date/Time: Sunday, April 09, 2017 11:34 - CONCLUSION: 1. Bilateral lower lobe pulmonary embolism right greater than left Artemio Ferreira MD Upper Extremity Ultrasound 04/06/17 0000 Signed Impressions: Service Date/Time: Thursday, April 06, 2017 14:05 - CONCLUSION: No DVT left arm. Jacky Avery MD Chest X-Ray 04/06/17 0000 Signed Impressions: Service Date/Time: Thursday, April 06, 2017 20:46 - CONCLUSION: No acute disease. Alvaro Santiago MD Lower Extremity Ultrasound 04/04/17 0000 Signed Impressions: Service Date/Time: Tuesday, April 04, 2017 13:08 - CONCLUSION: 1. Deep venous thrombosis of the right leg. 2. Thrombosis of the left greater saphenous vein. 3. Popliteal cyst on the left. Jacky Avery MD Abdomen Ultrasound 04/04/17 0000 Signed Impressions: Service Date/Time: Tuesday, April 04, 2017 17:29 - CONCLUSION: Negative for an acute process. Pancreas is difficult to visualize because of patient body habitus.. Marino Lau MD FACR Objective Remarks GENERAL: This is a well-nourished, well-developed patient, in no acute distress SKIN: No rashes, ecchymoses or lesions. HEAD: Atraumatic. Normocephalic. No temporal or scalp tenderness. EYES: Pupils equal round and reactive. Extraocular motions intact. No scleral icterus. No injection or drainage. ENT: Nose without bleeding, purulent drainage or septal hematoma. Throat without erythema, tonsillar hypertrophy or exudate. Uvula midline. Airway patent. NECK: Trachea midline. No JVD or lymphadenopathy. Supple, nontender, no meningeal signs. CARDIOVASCULAR: Regular rate and rhythm without murmurs, gallops, or rubs. RESPIRATORY: Clear to auscultation. Breath sounds equal bilaterally. No wheezes , rales, or rhonchi. GASTROINTESTINAL: Abdomen soft, nondistended. No hepato-splenomegaly, or palpable masses. No guarding. MUSCULOSKELETAL: Tender to palpation on her right side lateral to her right breast. Bilateral calf tenderness but much improved from previous exams. NEUROLOGICAL: Awake and alert. Cranial nerves II through XII intact. Motor and sensory grossly within normal limits. Medications and IVs Current Medications Medications (Trade) Dose Ordered Sig/Wanda Route Start Time Stop Time Status Last Admin (NS Flush) 2 ml UNSCH PRN IV FLUSH 04/04/17 16:00 04/10/17 15:51 (NS Flush) 2 ml BID IV FLUSH 04/04/17 21:00 04/10/17 20:33 (Morphine Inj) 2 mg Q4H PRN IV 04/04/17 16:00 04/10/17 20:37 (Zofran Inj) 4 mg Q6HR PRN IV PUSH 04/04/17 16:45 (Percocet 5-325 Mg) 1 tab Q4H PRN PO 04/05/17 10:15 04/08/17 13:09 (Percocet 5-325 Mg) 2 tab Q4H PRN PO 04/05/17 10:15 04/11/17 05:16 (Tylenol) 650 mg Q4H PRN PO 04/06/17 12:45 04/08/17 09:20 (Sariah-Colace) 2 tab BID PO 04/07/17 12:00 04/10/17 20:32 (Milk Of Magnesia Liq) 30 ml DAILY PRN PO 04/07/17 11:15 (Miralax) 17 gm DAILY PO 04/07/17 12:00 04/10/17 08:50 (Lactulose Liq) 30 ml TID PRN PO 04/08/17 12:00 Lorazepam 0.5 mg 0.5 mg Q8H PRN PO 04/09/17 16:00 04/10/17 12:59 (Coumadin Consult Pharmacy) 0 ml @ 0 mls/hr UNSCH OTHER 04/10/17 09:00 (Coumadin) 7.5 mg DAILY@16 PO 04/11/17 16:00 (Leandro Hopper MD R2) A/P Assessment and Plan 36-year-old female with a history of right lower extremity DVT and asthma presents with a one-week history of left leg pain and right lower extremity pain and swelling found to have a DVT of her right lower extremity and thrombosis of the left greater saphenous vein. She was admitted under observation for treatment with therapeutic Lovenox and bridging to warfarin. On 04/09/17, patient developed excruciating pain in her back and right side underneath her right breast. A stat pulmonary angiogram was performed that showed a segmental thrombosis in the left lower lobe and a small lateral thrombosis within the lingula. The right pulmonary embolism is greater than the left. Based on these results, hematology has been consulted to provide recommendations for further management. Lovenox was increased by the shotblast operator to 100 mg twice a day. INR became therapeutic at 2.5 on 04/10. Discussed with Dr. Clements Discharge Planning Anticipate discharged home today (Leandro Hopper MD R2) Attending Attestation Case reviewed and discussed with the resident team. Agree with plan of care as discussed with me and documented in the resident note. (Elton Clements MD) Problem List: (1) Pulmonary emboli Status: Acute Plan: -Due to patient's complaints of severe back pain, a stat pulmonary angiogram was performed which showed segmental thrombosis in the left lower lobe and a small lateral thrombosis within the lingula. The right pulmonary embolism is greater than the left -Hematology was consulted to provide recommendations for further management and increased Lovenox to 100 mg twice a day (2) DVT (deep venous thrombosis) Status: Acute Plan: -Acute on chronic DVT of right lower extremity confirmed by lower extremity ultrasound -Hypercoagulable panel pending -Ultrasound abdomen was negative but did not view the pancreas appropriately -Discontinued Lovenox -Continue warfarin bridge: Discharge on warfarin at 7.5mg daily -Pharmacy consulted for discharge warfarin recommendations -INR 1.9 on 04/11, after warfarin was lowered to 5 mg. It will be returned to 7.5 -Repeat INR in 3 days -Percocet one tab every 4 when necessary pain 1-5 -Zofran 4 mg IV when necessary nausea/vomiting -Ativan 0.5 mg by mouth every 8 hours when necessary anxiety -Case management consulted to assist with patient's medications -offered a blue card -Physical therapy consulted to assist with mobility -Heat treatments for left buttock and legs DVT Hx: -First DVT was in August 2009 - right femoral artery -November 2009-DVT of the right lower extremity -February 2015: DVT of the distal SFV, popliteal vein, and posterior tibial vein of the right lower extremity (3) Allergic reaction caused by a drug Status: Acute Plan: Believed allergic reaction to the nicotine patch. Area with a nicotine patch was placed became warm to the touch and painful. Ultrasound of the area of the arm did not show any hematoma, DVT, or blood clots. -Discontinue nicotine patch -Ice pack to be applied to the area of pain -Continue to monitor at this time (4) FEN/DVT PPX/GI PPX/Standard Orders Status: Acute Plan: Fluids: Oral fluids Electrolytes: Will monitor and replace as needed Nutrition: Regular adult diet DVT Prophylaxis: warfarin as above GI Prophylaxis: Not required -Monitor I's and O's -Continuous vital signs -Out of bed as tolerated (Leandro Hopper MD R2) Problem Qualifiers (1) Pulmonary emboli: Qualified Code: I26.99 - Other acute pulmonary embolism without acute cor pulmonale (2) DVT (deep venous thrombosis): Qualified Code: I82.4Y1 - Acute deep vein thrombosis (DVT) of proximal vein of right lower extremity Leandro Hopper MD April 11, 2017 08:32 Elton Clements MD April 12, 2017 09:20
[2017-04-11] MEDS ORDERED: COUM7.5T PO (09:48)
[2017-04-11] MEDS ORDERED: OXYC1TAB63 PO (09:48)
--- NOTE | 2017-04-11 09:50 | HHI.DCPOC ---
Discharge Care Plan Diagnosis: (1) DVT (deep venous thrombosis) (2) Pulmonary emboli Goals to Promote Your Health * To prevent worsening of your condition and complications * To maintain your health at the optimal level Do not smoke Take warfarin as prescribed Follow-up with PCP Follow INR as prescribed Directions to Meet Your Goals Take your medications as prescribed Follow your dietary instruction Follow activity as directed Keep your appointments as scheduled Take your immunizations and boosters as scheduled If your symptoms worsen call your PCP, if no PCP go to Urgent Care Center or Emergency Room Smoking is Dangerous to Your Health. Avoid second hand smoke Call the 24-hour hour crisis hotline for domestic abuse at Leandro Hopper MD R2 April 11, 2017 09:50
--- NOTE | 2017-04-11 09:55 | HHI.DS ---
Discharge Summary Admission Date April 05, 2017 at 16:01 Discharge Date: April 11, 2017 Admitting Diagnosis DVT (1) Pulmonary emboli Diagnosis: Principal Plan: -Due to patient's complaints of severe back pain, a stat pulmonary angiogram was performed which showed segmental thrombosis in the left lower lobe and a small lateral thrombosis within the lingula. The right pulmonary embolism is greater than the left -Hematology was consulted to provide recommendations for further management and increased Lovenox to 100 mg twice a day (2) DVT (deep venous thrombosis) Diagnosis: Principal Plan: -Acute on chronic DVT of right lower extremity confirmed by lower extremity ultrasound -Hypercoagulable panel pending -Ultrasound abdomen was negative but did not view the pancreas appropriately -Discontinued Lovenox -Continue warfarin bridge: Discharge on warfarin at 7.5mg daily -Pharmacy consulted for discharge warfarin recommendations -INR 1.9 on 04/11, after warfarin was lowered to 5 mg. It will be returned to 7.5 -Repeat INR in 3 days -Percocet one tab every 4 when necessary pain 1-5 -Zofran 4 mg IV when necessary nausea/vomiting -Ativan 0.5 mg by mouth every 8 hours when necessary anxiety -Case management consulted to assist with patient's medications -offered a blue card -Physical therapy consulted to assist with mobility -Heat treatments for left buttock and legs DVT Hx: -First DVT was in August 2009 - right femoral artery -November 2009-DVT of the right lower extremity -February 2015: DVT of the distal SFV, popliteal vein, and posterior tibial vein of the right lower extremity (3) Allergic reaction caused by a drug Diagnosis: Secondary Plan: Believed allergic reaction to the nicotine patch. Area with a nicotine patch was placed became warm to the touch and painful. Ultrasound of the area of the arm did not show any hematoma, DVT, or blood clots. -Discontinue nicotine patch -Ice pack to be applied to the area of pain -Continue to monitor at this time (4) FEN/DVT PPX/GI PPX/Standard Orders Diagnosis: Secondary Plan: Fluids: Oral fluids Electrolytes: Will monitor and replace as needed Nutrition: Regular adult diet DVT Prophylaxis: warfarin as above GI Prophylaxis: Not required -Monitor I's and O's -Continuous vital signs -Out of bed as tolerated Consultants Hematology Procedures None Brief History Pt is a 36 y/o AAF with a past medical history of lower extremity DVTs and asthma presents to the [facility] ED with a chief complaint of left leg pain and right leg swelling of one week duration. The patient states that her right buttock hurts really bad with cramping pain and the pain radiates down to her feet. She has had difficulty with ambulation. She reports weakness in her lower extremities and numbness of her feet. She denies any change in medications, she is not taking any medications at the moment. She denies changes in diet and recent travel. Patient states that she had a DVT in 2008 in her right leg which was attributed to her smoking cigarettes while taking control. She was admitted to [facility] where she was bridged with warfarin. She took warfarin for like 3-4 years and then stopped because she lost her job and her insurance and could not go to clinics and could not afford the medication. CBC/BMP: 04/11/17 0506 04/11/17 0506 Significant Findings Laboratory Tests Test 04/09/17 04/10/17 04/10/17 04/11/17 05:02 03:57 03:59 05:06 White Blood Count 18.0 TH/MM3 11.1 TH/MM3 (4.0-11.0) (4.0-11.0) Red Blood Count 3.76 MIL/MM3 3.80 MIL/MM3 3.92 MIL/MM3 (4.00-5.30) (4.00-5.30) (4.00-5.30) Hematocrit 34.2 % 34.7 % (35.0-46.0) (35.0-46.0) Neutrophils (%) (Auto) 75.8 % (16.0-70.0) Neutrophils # (Auto) 13.7 TH/MM3 (1.8-7.7) Monocytes # (Auto) 1.2 TH/MM3 (0-0.9) Prothrombin Time 19.7 SEC 28.5 SEC 22.1 SEC (9.8-11.6) (9.8-11.6) (9.8-11.6) Hemoglobin 11.4 GM/DL (11.6-15.3) Creatinine 0.41 MG/DL 0.45 MG/DL (0.50-1.00) (0.50-1.00) Platelet Count 463 TH/MM3 (150-450) Imaging Last Impressions CT Angiography 04/09/17 0000 Signed Impressions: Service Date/Time: Sunday, April 09, 2017 11:34 - CONCLUSION: 1. Bilateral lower lobe pulmonary embolism right greater than left Artemio Ferreira MD Upper Extremity Ultrasound 04/06/17 0000 Signed Impressions: Service Date/Time: Thursday, April 06, 2017 14:05 - CONCLUSION: No DVT left arm. Jacky Avery MD Chest X-Ray 04/06/17 Signed Impressions: Service Date/Time: Thursday, April 06, 2017 20:46 - CONCLUSION: No acute disease. Alvaro Santiago MD Lower Extremity Ultrasound 04/04/17 0000 Signed Impressions: Service Date/Time: Tuesday, April 04, 2017 13:08 - CONCLUSION: 1. Deep venous thrombosis of the right leg. 2. Thrombosis of the left greater saphenous vein. 3. Popliteal cyst on the left. Jacky Avery MD Abdomen Ultrasound 04/04/17 0000 Signed Impressions: Service Date/Time: Tuesday, April 04, 2017 17:29 - CONCLUSION: Negative for an acute process. Pancreas is difficult to visualize because of patient body habitus.. Marino Lau MD FACR PE at Discharge GENERAL: This is a well-nourished, well-developed patient, in no acute distress SKIN: No rashes, ecchymoses or lesions. HEAD: Atraumatic. Normocephalic. No temporal or scalp tenderness. EYES: Pupils equal round and reactive. Extraocular motions intact. No scleral icterus. No injection or drainage. ENT: Nose without bleeding, purulent drainage or septal hematoma. Throat without erythema, tonsillar hypertrophy or exudate. Uvula midline. Airway patent. NECK: Trachea midline. No JVD or lymphadenopathy. Supple, nontender, no meningeal signs. CARDIOVASCULAR: Regular rate and rhythm without murmurs, gallops, or rubs. RESPIRATORY: Clear to auscultation. Breath sounds equal bilaterally. No wheezes , rales, or rhonchi. GASTROINTESTINAL: Abdomen soft, nondistended. No hepato-splenomegaly, or palpable masses. No guarding. MUSCULOSKELETAL: Tender to palpation on her right side lateral to her right breast. Bilateral calf tenderness but much improved from previous exams. NEUROLOGICAL: Awake and alert. Cranial nerves II through XII intact. Motor and sensory grossly within normal limits. Hospital Course Patient was admitted on 04/05/17 due to a DVT in her right leg and a superficial thrombosis in her left leg. She was placed on therapeutic Lovenox with her warfarin bridge. She was slowly transitioned to an appropriate INR on the warfarin. While in the hospital she developed acute shortness of breath CTA was done and small bilateral PEs were seen. At that time hematology was consulted, and they believed the PEs had been present prior to admission. With time she improved and both her shortness of breath as well as pain in her legs. And her INR reached a therapeutic level. She was discharged home on 04/11/17 with a warfarin dose of 7.5 mg in a blue card to follow up as an outpatient. Pt Condition on Discharge: Stable Discharge Disposition: Discharge Home Discharge Instructions DIET: Follow Instructions for: As Tolerated, No Restrictions Activities you can perform: Regular-No Restrictions Follow up Referrals: Hematology - 1 Week PCP Follow-up - 1 Week New Orders: PT/INR - 2-3 Days New Medications: Oxycodone-Acetaminophen (Oxycodone-Acetaminophen) 5-325 mg Tab 1 TAB PO Q4H PRN PAIN SCALE 1 TO 5 #30 Ref 0 TAB Warfarin (Coumadin) 7.5 Mg Tab 7.5 MG PO DAILY@16 #30 Ref 2 TAB Leandro Hopper MD R2 April 11, 2017 09:55
[2017-04-11] MEDS: POLYETHYLENE GLYCOL 17 GM PKG PO SCH (09:58)
[2017-04-11] MEDS: DOCUSATE SODIUM 50 MG/SENNA 8.6 MG TAB PO SCH (09:59)
[2017-04-11] MEDS: SODIUM CHLORIDE 0.9% FLUSH 10 ML FLUSH IV FLUSH SCH (09:59)
[2017-04-11 12:00] VITALS: BP 107/66; PULSE 82; RESP 18; TEMP 98.6; O2SAT 97
[2017-04-11] MEDS ORDERED: WARFARIN SOD 7.5 MG TAB PO SCH (16:00)
[2017-04-15] MEDS ORDERED: WOMETAB5 PO (08:19)
== END 2017-04-11 14:57 | disposition home or self-care (01) | DRG 301 ==
LOC: NEPD 12:23 → NEDA 15:29 → INTOOBSV 15:29 → N06B 17:29 → OBSVTOIN 04-05 16:01
PROVIDERS: ADMIT Family Medicine; ATTEND Family Medicine
DX: I82.401 Acute embolism and thrombosis of unspecified deep veins of right lower extremity (principal); F41.9 Anxiety disorder, unspecified; I82.501 Chronic embolism and thrombosis of unspecified deep veins of right lower extremity; J45.909 Unspecified asthma, uncomplicated; M71.22 Synovial cyst of popliteal space [Baker], left knee; F17.210 Nicotine dependence, cigarettes, uncomplicated; F12.90 Cannabis use, unspecified, uncomplicated; Z86.711 Personal history of pulmonary embolism
CPT/HCPCS: 71010; 71275; 76700; 80048; 80307; 81001; 81240; 81241; 81291; 83090; 83690; 85025; 85027; 85240; 85300; 85303; 85306; 85307; 85610; 85613; 85730; 86146; 86147; 86148; 87040; 90732; 93970; 93971; G0378; J1650; J2060; J2270; Q0163; Q9967

== ENCOUNTER → 2017-04-16 | Outpatient (CLI) | payer OTHER ==
[~2017-04-16] MED LIST changes: -CHLO.12%30 SSP; +COUM7.5T PO; -DICL75 PO; -ENOX40P SQ; -IBUP800T23 PO; +OXYC1TAB63 PO; +VITA10002 PO; -WARF7.5 PO; +WOMETAB5 PO
[2017-04-16 10:03] LABS: INTERNATIONAL NORMALIZED RATIO 3.7 RATIO; PROTHROMBIN TIME - PATIENT 43.5 SEC (9.8-11.6)
== END ==
LOC: CLAB 09:27
PROVIDERS: ATTEND Nurse Practitioner Family
DX: Z51.81 Encounter for therapeutic drug level monitoring (principal); Z79.01 Long term (current) use of anticoagulants
CPT/HCPCS: 36415; 85610

== ENCOUNTER 2017-05-25 20:31 | Observation (INO) | payer OTHER ==
[~2017-05-25] VITALS: Ht 165.1 cm; Wt 72.0 kg
[~2017-05-25 20:31] MED LIST changes: -VITA10002 PO
[2017-05-25 20:32] VITALS: BP 123/74; PULSE 115; RESP 16; TEMP 98.7; O2SAT 96
[2017-05-25 20:44] VITALS: BP 128/68; PULSE 100; RESP 20; O2SAT 96
--- NOTE | 2017-05-25 20:44 | PD ---
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 Patient states this feels just like it did when she had a pulmonary was in the past. Patient reports being on Coumadin and taking it regularly. She believes her last INR was checked approximately a month ago but does not recall what it was. In review of her records, and march the INR was 3.2. Patient states she has not followed up within the last month. She has not been recently ill. She denies any fever or chills. No nausea or vomiting. No acute focal deficit or weakness. PFSH Past Medical History Asthma: Yes Blood Disorders: No Anxiety: No Depression: Yes (rt to and post ) Cancer: No Cardiovascular Problems: Yes Diminished Hearing: No Deep Vein Thrombosis: Yes (pe x2 /warfarin) Endocrine: No Gastrointestinal Disorders: No Genitourinary: No Immune Disorder: No Implanted Vascular Access Dvce: No Musculoskeletal: No Neurologic: Yes (had brain stem cyst/rt sided facial paralysis) Psychiatric: No Reproductive: No Respiratory: Yes Immunizations Current: No Migraines: Yes Tetanus Vaccination: < 5 Years Influenza Vaccination: Yes ?: Not : 3 Para: 3 Past Surgical History Abdominal Surgery: No Cardiac Surgery: No Section: Yes (x3) Gynecologic Surgery: Yes (3 c sect) Neurologic Surgery: Yes (removal of cyst on brain stem) Thoracic Surgery: No Other Surgery: Yes Social History Alcohol Use: No Tobacco Use: Yes Substance Use: No Allergies-Medications (Allergen,Severity, Reaction): Coded Allergies: Penicillin (Verified Allergy, Severe, SWELLING, VOMITING, 04/15/17) Reported Meds & Prescriptions Reported Meds & Active Scripts Active Coumadin (Warfarin) 7.5 Mg Tab 7.5 Mg PO DAILY@16 Reported Vitamin B-12 (Cyanocobalamin) 1,000 Mcg Tab 1,000 Mcg PO DAILY Review of Systems Except as stated in HPI: all other systems reviewed are Neg Physical Exam Narrative GENERAL: Well-nourished female patient, ambulatory and in no acute distress. SKIN: Focused skin assessment warm/dry. HEAD: Atraumatic. Normocephalic. Right sided facial paralysis. EYES: Pupils equal and round. No scleral icterus. No injection or drainage. ENT: No nasal bleeding or discharge. Mucous membranes pink and moist. NECK: Trachea midline. No JVD. CARDIOVASCULAR: Tachycardic rate and rhythm. No murmur appreciated. RESPIRATORY: No accessory muscle use. Diminished bases, poor inspiratory effort , secondary to pain. Breath sounds equal bilaterally. GASTROINTESTINAL: Abdomen soft, non-tender, nondistended. Hepatic and splenic margins not palpable. MUSCULOSKELETAL: No obvious deformities. No clubbing. No cyanosis. No edema. NEUROLOGICAL: Awake and alert. Motor grossly within normal limits. Normal speech. Data Data Last Documented VS Vital Signs Date Time Temp Pulse Resp B/P Pulse Ox O2 Delivery O2 Flow Rate FiO2 05/25/17 20:53 101 20 128/68 98 Room Air 118/59 05/25/17 20:32 98.7 Orders Electrocardiogram (05/25/17 20:40) Basic Metabolic Panel (Bmp) (05/25/17 20:40) Ckmb (Isoenzyme) Profile (05/25/17 20:40) Complete Blood Count With Diff (05/25/17 20:40) Magnesium (Mg) (05/25/17 20:40) Prothrombin Time / Inr (Pt) (05/25/17 20:40) Act Partial Throm Time (Ptt) (05/25/17 20:40) Troponin I (05/25/17 20:40) Chest, Single Ap (05/25/17 20:40) Ecg Monitoring (05/25/17 20:40) Bilateral Bp Monitoring (05/25/17 20:40) Iv Access Insert/Monitor (05/25/17 20:40) Oximetry (05/25/17 20:40) Oxygen Administration (05/25/17 20:40) Sodium Chloride 0.9% Flush (Ns Flush) (05/25/17 20:45) Ct Pulmonary Angiogram (05/25/17 20:40) Ed Urine Pregnancytest Poc (05/25/17 20:40) CKMB (05/25/17 20:46) CKMB% (05/25/17 20:46) Iohexol 350 Inj (Omnipaque 350 Inj) (05/25/17 22:04) Morphine Inj (Morphine Inj) (05/25/17 22:30) Ondansetron Inj (Zofran Inj) (05/25/17 22:30) Place In Observation (05/25/17 ) Vital Signs (Adult) Q4H (05/25/17 22:45) Activity Bed Rest (05/25/17 22:45) Title Insurance Sales Representative / Telemetry .CONTINUOUS (05/25/17 22:45) Diet Heart Healthy (05/26/17 Breakfast) Sodium Chloride 0.9% Flush (Ns Flush) (05/25/17 22:45) Sodium Chloride 0.9% Flush (Ns Flush) (05/26/17 09:00) Basic Metabolic Panel (Bmp) (05/26/17 06:00) Complete Blood Count With Diff (05/26/17 06:00) Case Management Consult (05/25/17 22:45) Naloxone Inj (Narcan Inj) (05/25/17 22:45) Enoxaparin Inj (Lovenox Inj) (05/25/17 23:00) Enoxaparin Inj (Lovenox Inj) (05/25/17 23:00) Warfarin (Coumadin) (05/26/17 16:00) Admit Order (Ed Use Only) (05/25/17 22:47) Warfarin (Coumadin) (05/25/17 23:00) Labs Laboratory Tests Test 05/25/17 20:46 White Blood Count 14.5 TH/MM3 Red Blood Count 4.62 MIL/MM3 Hemoglobin 13.9 GM/DL Hematocrit 40.5 % Mean Corpuscular Volume 87.7 FL Mean Corpuscular Hemoglobin 30.1 PG Mean Corpuscular Hemoglobin 34.3 % Concent Red Cell Distribution Width 13.6 % Platelet Count 614 TH/MM3 Mean Platelet Volume 7.2 FL Neutrophils (%) (Auto) % Lymphocytes (%) (Auto) % Monocytes (%) (Auto) % Eosinophils (%) (Auto) % Basophils (%) (Auto) % Neutrophils # (Auto) TH/MM3 Lymphocytes # (Auto) TH/MM3 Monocytes # (Auto) TH/MM3 Eosinophils # (Auto) TH/MM3 Basophils # (Auto) TH/MM3 CBC Comment AUTO DIFF Differential Total Cells 100 Counted Neutrophils % (Manual) 62 % Lymphocytes % 30 % Monocytes % 4 % Eosinophils % 4 % Neutrophils # (Manual) 9.0 TH/MM3 Differential Comment FINAL DIFF MANUAL Platelet Estimate NORMAL Platelet Morphology Comment NORMAL Red Cell Morphology Comment NORMAL Prothrombin Time 12.9 SEC Prothromb Time International 1.2 RATIO Ratio Activated Partial 29.5 SEC Thromboplast Time Sodium Level 139 MEQ/L Potassium Level 3.4 MEQ/L Chloride Level 103 MEQ/L Carbon Dioxide Level 23.8 MEQ/L Anion Gap 12 MEQ/L Blood Urea Nitrogen 7 MG/DL Creatinine 0.72 MG/DL Estimat Glomerular Filtration 109 ML/MIN Rate Random Glucose 143 MG/DL Calcium Level 8.6 MG/DL Magnesium Level 1.8 MG/DL Total Creatine Kinase 106 U/L Creatine Kinase MB 0.9 NG/ML Troponin I LESS THAN 0.02 NG/ML MDM Medical Decision Making Medical Screen Exam Complete: Yes Emergency Medical Condition: Yes Medical Record Reviewed: Yes Differential Diagnosis PE versus pneumonia versus pleurisy versus costochondritis versus muscle spasm Narrative Course 37 year-old female presents to emergency department for evaluation of right sided chest pain. This is acute onset approximately one hour ago with associated shortness of breath. Patient has history of pulmonary embolus as well as DVT. She has not had her INR checked within the last month. She is followed by Dr. Reyes. In review of patient's record, it is suspected that the patient may have protein S deficiency as the patient had already been anticoagulated when the test was conducted. Patient has a mild leukocytosis of 14.5. Chemistries within normal limits. Troponin is less than 0.02. INR is 1.2. Last Impressions Chest X-Ray 05/25/[id number] Signed Impressions: Service Date/Time: Thursday, May 25, 2017 20:41 - CONCLUSION: Normal examination. Mariano Lindsay MD CT Angiography [id number]/[id number] Signed Impressions: Service Date/Time: Thursday, May 25, 2017 21:51 - CONCLUSION: Thrombus seen at the lateral aspect of the right lower lobe pulmonary artery and then extending into the pulmonary supplying the posterior lateral right lower lobe. Residual chronic embolus from the prior pulmonary embolus versus some recurrent acute emboli could have a similar appearance. There are patchy areas of peripheral density seen at the lateral and posterior aspects of the right lower lobe which may represent infarct. Some of these were present previously. Mraiano Lindsay MD I discussed the patient my attending physician Dr. East. There is concern with the patient having possible protein S deficiency and taking coumadin, currently being in a hypercoagulable state. Pt is on patient assistance and case management is not available at this time to help with medication assistance /follow up. A call is made to for admission Diagnosis Primary Impression: Pulmonary emboli Qualified Code: I26.99 - Other acute pulmonary embolism without acute cor pulmonale Admitting Information Admitting Physician Requests: Observation Condition: Stable Geovanna Kirkland May 25, 2017 20:44
[2017-05-25] MEDS ORDERED: SODIUM CHLORIDE 0.9% FLUSH 10 ML FLUSH IVF PRN (20:45)
[2017-05-25] MEDS ORDERED: VITA10002 PO (20:48)
[2017-05-25 20:53] VITALS: BP_SYST 118; BP_SYST 128; BP_DIAS 59; BP_DIAS 68; PULSE 101; RESP 20; O2SAT 98
[2017-05-25 21:06] LABS: HEMATOCRIT 40.5 % (35.0-46.0); MEAN CELL VOLUME 87.7 FL (80.0-100.0); MEAN CORPUSCULAR HEMOGLOBIN 30.1 PG (27.0-34.0); MEAN CORPUSCULAR HGB CONC 34.3 % (32.0-36.0); PLATELET COUNT 614 TH/MM3 (150-450); RED BLOOD COUNT 4.62 MIL/MM3 (4.00-5.30); RED CELL DISTRIBUTION WIDTH 13.6 % (11.6-17.2); WHITE BLOOD COUNT 14.5 TH/MM3 (4.0-11.0)
[2017-05-25 21:09] LABS: HEMO FLAGS AUTO DIFF
[2017-05-25 21:19] LABS: ANION GAP 12 MEQ/L (5-15); BICARBONATE 23.8 MEQ/L (21.0-32.0); BLOOD UREA NITROGEN 7 MG/DL (7-18); CHLORIDE 103 MEQ/L (98-107); GLOMERULAR FILTRATION RATE 109 ML/MIN (>89); MAGNESIUM 1.8 MG/DL (1.5-2.5); POTASSIUM 3.4 MEQ/L (3.5-5.1); SODIUM (NA) 139 MEQ/L (136-145)
[2017-05-25 21:21] LABS: APTT (PATIENT) 29.5 SEC (24.3-30.1); INTERNATIONAL NORMALIZED RATIO 1.2 RATIO; PROTHROMBIN TIME - PATIENT 12.9 SEC (9.8-11.6)
--- NOTE | 2017-05-25 21:22 | RADRPT ---
EXAM DATE/TIME: 05/25/2017 20:41 [facility] COMPARISON: CHEST SINGLE AP, April 06, 2017, 20:46. INDICATIONS : Chest pain and shortness of breath. MEDICAL HISTORY : Asthma. Hx of blood clots in bilateral lungs. SURGICAL HISTORY : None. ENCOUNTER: Initial ACUITY: 2 days PAIN SCORE: 5/10 LOCATION: chest FINDINGS: A single view of the chest demonstrates the lungs to be symmetrically aerated without evidence of mas s, infiltrate or effusion. The cardiomediastinal contours are unremarkable. Osseous structures are intact. CONCLUSION: Normal examination. Mariano Lindsay MD on May 25, 2017 at 21:16 Board Certified Radiologist. This report was verified electronically.
[2017-05-25 21:23] LABS: CREATINE KINASE 106 U/L (26-192)
[2017-05-25 21:35] LABS: CKMB 0.9 NG/ML (0.5-3.6)
[2017-05-25 21:37] LABS: EOSINOPHILS 4 % (0-4); POLYS (SEG NEUTROPHILS) 62 % (16-70); WBC DIFF SAMPLE 100
[2017-05-25 21:38] LABS: PLATELET ESTIMATE SMEAR NORMAL (NORMAL); PLATELET MORPHOLOGY NORMAL (NORMAL); SCAN/DIFF FINAL DIFF MANUAL
[2017-05-25] MEDS ORDERED: IOHEXOL 350 MG/ML 10 ML VIAL (for RAD DIAG) IV ONE (22:04)
--- NOTE | 2017-05-25 22:17 | RADRPT ---
EXAM DATE/TIME: 05/25/2017 21:51 [facility] COMPARISON: CT PULMONARY ANGIOGRAM, April 09, 2017, 11:34. INDICATIONS : Chest pain with shortness of breath. IV CONTRAST: 70 cc Omnipaque 350 (iohexol) IV RADIATION DOSE: 23.38 CTDIvol (mGy) MEDICAL HISTORY : Cardiovascular disease., radiation dose was kept as low as reasonably achievable to obtain optimal di agnostic quality images. DICOM format image data is available electronically for review and compari son. FINDINGS: PULMONARY ARTERIES: There is a laterally positioned from a slightly at the pulmonary artery supplying the posterior later al right lower lobe. On the prior exam, Much of the pulmonary artery supplying the right lower lobe w as involved with acute appearing thrombus. No other areas of thrombus are seen on today's examination . LUNGS: There are patchy areas of peripheral density seen at the posterior and lateral right lower lobe which may representing infarcts. Atelectasis or other causes of consolidation can be considered. PLEURAE: There is no pleural thickening or pleural effusion. MEDIASTINUM: There is good visualization of the great vessels of the middle mediastinum. No evidence of mediastin al or hilar adenopathy/mass. MUSCULOSKELETAL: Within normal limits for patient age. MISCELLANEOUS: The visualized upper abdominal organs demonstrate no acute abnormality. CONCLUSION: Thrombus seen at the lateral aspect of the right lower lobe pulmonary artery and then extending into the pulmonary supplying the posterior lateral right lower lobe. Residual chronic embolus from the jm or pulmonary embolus versus some recurrent acute emboli could have a similar appearance. There are pa tchy areas of peripheral density seen at the lateral and posterior aspects of the right lower lobe wh ich may represent infarct. Some of these were present previously. Mariano Lindsay MD on May 25, 2017 at 22:07 Board Certified Radiologist. This report was verified electronically.
[2017-05-25] MEDS ORDERED: ONDANSETRON HCL 4 MG/2 ML VIAL IV PUSH ONE (22:30)
[2017-05-25] MEDS ORDERED: MORPHINE SULFATE 4 MG/ML INJ IV PUSH ONE (22:30)
[2017-05-25] MEDS ORDERED: SODIUM CHLORIDE 0.9% FLUSH 10 ML FLUSH IV FLUSH PRN (22:45)
[2017-05-25] MEDS ORDERED: NALOXONE HCL 0.4 MG/ML AMP IV PRN (22:45)
[2017-05-25] MEDS ORDERED: DO NOT ADM ANY ANTICOAGULANT DRUGS OTHER PRN (23:00)
[2017-05-25] MEDS ORDERED: WARFARIN SOD 10 MG TAB PO ONE (23:00)
[2017-05-25] MEDS ORDERED: ENOXAPARIN SODIUM 80 MG/0.8 ML SYRINGE SQ ONE (23:00)
[2017-05-25 23:26] VITALS: BP 100/57; PULSE 85; RESP 20; O2SAT 97
[2017-05-26] VITALS (11 sets, daily range): BP systolic 85–120; BP diastolic 49–75; PULSE 56–91; RESP 18–20; TEMP 97.8–98.8; O2SAT 93–99
[2017-05-26 08:15] LABS: AUTOMATED NEUTROPHIL # 6.3 TH/MM3 (1.8-7.7); BASOPHIL # 0.1 TH/MM3 (0-0.2); BASOPHIL % 0.9 % (0.0-2.0); EOSINOPHIL # 0.2 TH/MM3 (0-0.4); EOSINOPHIL % 2.1 % (0.0-4.0); HEMATOCRIT 39.2 % (35.0-46.0); HEMO FLAGS DIFF FINAL; LYMPH % 27.2 % (9.0-44.0); LYMPHOCYTE # 2.7 TH/MM3 (1.0-4.8); MEAN CELL VOLUME 89.7 FL (80.0-100.0); MEAN CORPUSCULAR HEMOGLOBIN 29.3 PG (27.0-34.0); MEAN CORPUSCULAR HGB CONC 32.6 % (32.0-36.0); MONO % 6.8 % (0.0-8.0); PLATELET COUNT 413 TH/MM3 (150-450); RED BLOOD COUNT 4.37 MIL/MM3 (4.00-5.30); RED CELL DISTRIBUTION WIDTH 13.5 % (11.6-17.2); WHITE BLOOD COUNT 10.1 TH/MM3 (4.0-11.0)
[2017-05-26 08:39] LABS: BICARBONATE 25.6 MEQ/L (21.0-32.0); POTASSIUM 3.7 MEQ/L (3.5-5.1)
[2017-05-26] MEDS ORDERED: ENOXAPARIN SODIUM 80 MG/0.8 ML SYRINGE SQ SCH (09:00)
[2017-05-26] MEDS: SODIUM CHLORIDE 0.9% FLUSH 10 ML FLUSH IV FLUSH SCH ×2 (09:00→21:38)
--- NOTE | 2017-05-26 09:27 | EKG ---
Date Performed: 05/25/2017 Time Performed: 20:42:39 PTAGE: 37 years EKG: SINUS TACHYCARDIA NONSPECIFIC T-WAVE ABNORMALITY ABNORMAL RHYTHM ECG PREVIOUS TRACING : 02/23/2015 03.51 DOCTOR: Feliciano Mccann Interpretating Date/Time 05/26/2017 09:26:24
[2017-05-26] MEDS ORDERED: SODIUM CHLORID 0.9% 500 ML INJ 500 ML IV ONE (09:45)
--- NOTE | 2017-05-26 12:58 | HHI.HP ---
HPI Service [facility] Primary Care Physician Jewell Reyes MD Admission Diagnosis Pulmonary embolus; R sided chest pain; subtherapeutic Diagnoses: Chief Complaint: Chest pain, increased shortness of breath Travel History International Travel<30 Days: No Contact w/Intl Traveler <30 Da: No Traveled to Known Affected Are: No History of Present Illness Written by Balaji Cortes, acting as scribe for Dr. Funez on 05/26/17 at 12:35. Patient is a 37 year old female with primary medical history of asthma, lower extremity DVT, pulmonary embolus who came to the hospital for complaints of chest pain and increasing shortness of breath. Patient states that chest pain location is on the right side started 2 days ago associated with increasing shortness of breath, radiates to her back, rated 8/10, unrelieved by repositioning. States she is having difficulty taking deep breaths. Denies diaphoresis, nausea vomiting. Patient was previously seen the hospital for pulmonary embolism and was placed on heparin drip, discharged on Coumadin with a follow-up with Dr. Reyes PCP as an outpatient 04/11/17. Patient states that she wasn't able to follow-up because she needed assistance card, not able to check her INR since discharge. States she was able to refill her Coumadin and has been taking it. Reports she missed 2 doses 4 days ago, and restarted right back. Denies cough. Denies changes in vision. Denies palpitations, headaches, dizziness. Denies fevers, chills, n/v/d. Denies dysuria. Review of Systems Except as stated in HPI: all other systems reviewed are Neg Past Family Social History Past Medical History History of right lower extremity DVT Asthma Alcohol abuse Tobacco abuse Past Surgical History Brain surgery secondary to cyst removal from the brainstem Reported Medications Reported Meds & Active Scripts Active Coumadin (Warfarin) 7.5 Mg Tab 7.5 Mg PO DAILY@16 Reported Vitamin B-12 (Cyanocobalamin) 1,000 Mcg Tab 1,000 Mcg PO DAILY Allergies: Coded Allergies: Penicillin (Verified Allergy, Severe, SWELLING, VOMITING, 04/15/17) Active Ordered Medications Current Medications Medications (Trade) Dose Ordered Sig/Wanda Route Start Time Stop Time Status Last Admin (NS Flush) 2 ml UNSCH PRN IV FLUSH 05/25/17 22:45 (NS Flush) 2 ml BID IV FLUSH 05/26/17 09:00 05/26/17 09:00 (Narcan Inj) 0.4 mg UNSCH PRN IV 05/25/17 22:45 (Lovenox Inj) 70 mg Q12HR SQ 05/26/17 09:00 05/26/17 09:00 (Coumadin) 7.5 mg DAILY@16 PO 05/26/17 16:00 Miscellaneous Information ALL NURSING DEPARTME... UNSCH PRN OTHER 05/25/17 23:00 05/26/17 22:59 (Coumadin Consult Pharmacy) 0 ml @ 0 mls/hr UNSCH OTHER 05/26/17 08:00 Family History No family history of blood disorder Mom has hypertension Social History Reports alcohol use 4-8 packs 3 times a week Current day smoker 1-1-1/2 pack per day Marijuana use, no IV drug use Physical Exam Vital Signs Vital Signs Date Time Temp Pulse Resp B/P Pulse Ox O2 Delivery O2 Flow Rate FiO2 05/26/17 11:51 98.6 74 20 120/70 98 05/26/17 07:47 98.0 75 20 85/49 96 05/26/17 06:45 69 05/26/17 04:17 97.8 86 20 95/57 96 05/26/17 00:56 90 05/26/17 00:27 98.5 91 20 93/55 98 05/25/17 23:26 85 20 100/57 97 Room Air 05/25/17 20:53 101 20 128/68 98 Room Air 118/59 05/25/17 20:53 Room Air 05/25/17 20:53 96 Room Air 05/25/17 20:44 100 20 128/68 96 Room Air 05/25/17 20:32 98.7 115 16 123/74 96 Room Air Physical Exam GENERAL: This is a well-nourished, appears to be older than stated age, well- developed patient, in no apparent distress. SKIN: No rashes, ecchymoses or lesions. Cool and dry. HEAD: Atraumatic. Normocephalic. No temporal or scalp tenderness. EYES: Pupils equal round and reactive. Extraocular motions intact. No scleral icterus. No injection or drainage. ENT: Nose without bleeding. Throat without erythema. Uvula midline. Airway patent. NECK: Trachea midline. No JVD or lymphadenopathy. CARDIOVASCULAR: Regular rate and rhythm without murmurs, gallops, or rubs. RESPIRATORY: Diminished sounds. No wheezes, rales, or rhonchi. GASTROINTESTINAL: Abdomen soft, non-tender, nondistended. Bowel sounds active 4. MUSCULOSKELETAL: Extremities without clubbing, cyanosis, or edema. Right lower extremity tender to palpate, larger than LLE NEUROLOGICAL: Awake and alert. Oriented to person, place, time. Motor and sensory grossly within normal limits. Normal speech. Laboratory Laboratory Tests Test 05/25/17 05/26/17 05/26/17 20:46 06:22 07:22 White Blood Count 14.5 10.1 Red Blood Count 4.62 4.37 Hemoglobin 13.9 12.8 Hematocrit 40.5 39.2 Mean Corpuscular Volume 87.7 89.7 Mean Corpuscular Hemoglobin 30.1 29.3 Mean Corpuscular Hemoglobin 34.3 32.6 Concent Red Cell Distribution Width 13.6 13.5 Platelet Count 614 413 Mean Platelet Volume 7.2 7.5 Neutrophils (%) (Auto) 63.0 Lymphocytes (%) (Auto) 27.2 Monocytes (%) (Auto) 6.8 Eosinophils (%) (Auto) 2.1 Basophils (%) (Auto) 0.9 Neutrophils # (Auto) 6.3 Lymphocytes # (Auto) 2.7 Monocytes # (Auto) 0.7 Eosinophils # (Auto) 0.2 Basophils # (Auto) 0.1 CBC Comment AUTO DIFF DIFF FINAL Differential Total Cells 100 Counted Neutrophils % (Manual) 62 Lymphocytes % 30 Monocytes % 4 Eosinophils % 4 Neutrophils # (Manual) 9.0 Differential Comment FINAL DIFF MANUAL Platelet Estimate NORMAL Platelet Morphology Comment NORMAL Red Cell Morphology Comment NORMAL Prothrombin Time 12.9 Prothromb Time International 1.2 Ratio Activated Partial 29.5 Thromboplast Time Sodium Level 139 137 Potassium Level 3.4 3.7 Chloride Level 103 102 Carbon Dioxide Level 23.8 25.6 Anion Gap 12 9 Blood Urea Nitrogen 7 13 Creatinine 0.72 0.51 Estimat Glomerular Filtration 109 162 Rate Random Glucose 143 90 Calcium Level 8.6 8.6 Magnesium Level 1.8 Total Creatine Kinase 106 Creatine Kinase MB 0.9 Troponin I LESS THAN 0.02 Result Diagram: 05/26/1762105/26/17721 Assessment and Plan Problem List: (1) Pulmonary emboli ICD Code: I26.99 Status: Acute (2) Anticoagulated on warfarin ICD Code: Z79.01 Status: Acute (3) DVT (deep venous thrombosis) ICD Code: I82.409 Status: Acute Assessment and Plan Patient is a 37 year old female with primary medical history of asthma, lower extremity DVT, pulmonary embolus who came to the hospital for complaints of chest pain and increasing shortness of breath. Pulmonary embolism, acute on chronic History of DVT - Unknown if patient's recurrent pulmonary embolism is secondary to noncompliance of not taking her medication, as per patient she skipped 2 doses, or patient has other deficiencies syndrome or in Coumadin dose is nontherapeutic. Has not followed up with PCP for INR checking and dose adjustment. - CT angiogram showed thrombus seen at the lateral aspect of the right lower lobe pulmonary artery and then extending into the pulmonary supplying the posterior lateral right lower lobe. Residual chronic embolus from the prior pulmonary embolus versus some recurrent acute emboli could have a similar appearance. There are patchy areas of peripheral density seen at the lateral and posterior aspect of the right lower lobe which may represent infarct. Some of these were previously. - Restart Coumadin 7.5 mg, bridged with Lovenox until INR is greater than 2 - Current INR 1.2 - Consult hematology input appreciated. Previous hematology note no sign of antithrombin deficiency, possible significant protein S deficiency. This is made worse with warfarin that inhibits protein C, protein S first prior to the larger anticoagulant proteins. In this manner, the patient's hypercoagulable short-term before full anticoagulant activity is present. - Follow INR trend Chest pain, rule out ACS - EKG reviewed by me showed sinus tachycardia heart rate 103 with no significant changes from previous EKG on 02/23/50 - Troponin less than 0.02, CK 106, CK-MB 0.9 - Likely that chest pain is associated with PE, will add pain meds - Monitor vital signs DVT prop, DVT history Coumadin and Lovenox This note was transcribed by rizwan Cortes]. I, Dr. Rika Funez personally performed the history, physical exam, and medical decision making; and confirmed the accuracy of the information in the transcribed note. Authenticated by Dr. Rika Funez on 05/26/17 at 1240. Code Status Full code Discussed Condition With Patient, nursing Problem Qualifiers (1) Pulmonary emboli: Qualified Code: I26.99 - Other acute pulmonary embolism without acute cor pulmonale Balaji Penny May 26, 2017 12:58 Rika Funez MD May 26, 2017 14:59
[2017-05-26] MEDS ORDERED: ACETAMINOPHEN 325 MG TAB PO PRN (15:15)
[2017-05-26] MEDS ORDERED: ACETAMINOPHEN/HYDROcodone 325 MG/5 MG TAB PO PRN (15:15)
[2017-05-26] MEDS ORDERED: WARFARIN SOD 7.5 MG TAB PO SCH (16:00)
[2017-05-26] MEDS ORDERED: RESP: ALBUTEROL 0.63 MG/3 ML NEB (PRN) NEB (19:30)
[2017-05-26] MEDS ORDERED: WARFARIN SOD 5 MG TAB PO SCH (20:00)
[2017-05-26] MEDS: ENOXAPARIN SODIUM 80 MG/0.8 ML SYRINGE SQ SCH (21:38)
[2017-05-26] MEDS: oxyCODONE/ACETAMINOPHEN 5 MG/325 MG TAB PO PRN (21:39)
--- NOTE | 2017-05-26 21:53 | MB ---
cc: ABDIRASHID FUNEZ MD, RUBY ANNE E. M.D. DATE OF CONSULTATION 05/26/2017 Oncology new patient consultative summary. DATE OF [address] Funez[address] CHIEF COMPLAINT [address]. Mireles requested consultation for Ms. Haddad regarding questionable recurrent pulmonary embolism with subtherapeutic INR. HISTORY OF PRESENT ILLNESS Mrs. Haddad is a 37-year-old woman, well-known patient from a previous consultation 04/09/2017. Her history is outlined in my previous consultation. 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 Her first deep vein thromboses was provoked with subsequent unprovoked deep vein thromboses resulting in significant postphlebitic syndrome. Review of the electronic medical record shows residual chronic thrombus in the right lower leg since 2008. She had an admission on 04/09/2017 with deep vein thromboses that precipitated a pulmonary embolism. This was in part attributed to a suboptimal bridging therapy. A previous consultation was to consider possibility of filter. We were able to avoid the filter and she was placed on anticoagulant therapy. She was ultimately discharged on Coumadin level of 7.5 mg. She stayed compliant on her anticoagulation. She apparently ran out of Coumadin for 4 days. While at work she developed pain symptoms in the chest. This prompted her to come in for evaluation. During this hospitalization a CT angiogram on May 25 shows thrombus seen in the lateral aspect of right lower lobe pulmonary artery and extending into pulmonary supply of the posterior lateral right lower lobe residual chronic thrombus from prior pulmonary embolus versus recurrent acute emboli is suspected. Her CBC was normal. Basic metabolic profile was normal. INR was subtherapeutic at 1.2. She reports PT/INR in between that was therapeutic. She was actually advised to stop her anticoagulation for a day and resume her usual dose. She is established now with patient assistance and is planning to see Dr. Reyes. She denies any bleeding complications on Coumadin. She reports compliance except for those four days when she ran out. She has taken up bicycle riding. Her asthma is not well controlled. She is wheezing. She unfortunately continues to smokes. She has taken up bicycle riding. She has had no falls. She has had no bleeding events. PAST MEDICAL HISTORY 1. 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 2. Pulmonary embolism. 3. Recurrent pulmonary embolism on subtherapeutic INR. 4. Asthma. 5. Smoking addiction. 6. History of alcohol abuse. PAST SURGICAL HISTORY Cyst removal. FAMILY HISTORY No family history of venous thromboembolic events. SOCIAL HISTORY Lives with her for the problem with alcohol. She has two daughters ages 9 and 5 living with her mother. Her eldest son 19 is in the . She continues to smoke. She denies any illicit drug use. ALLERGIES PENICILLIN. CURRENT MEDICATIONS 1. Enoxaparin 70 mg q.12 h. 2. Lortab. 3. Tylenol. 4. Naloxone. PHYSICAL EXAMINATION VITAL SIGNS: Temperature 98.4, heart rate 68, respiratory rate 18, blood pressure 112/75, saturation 99%. GENERAL: Mrs. Haddad is a well-developed, well-nourished woman in no acute distress. HEENT: Her pupils are round, reactive to light and accommodation. Oropharynx is clear. NECK: Supple. LUNGS: With wheezing all throughout. CARDIOVASCULAR: Exam reveals normal rate, rhythm. ABDOMEN: Benign. EXTREMITIES: Lower extremity with chronic venous changes, prominent varicosities. NEUROLOGIC: Exam is nonfocal. LABORATORY DATA INR 1.2. CBC is normal. ASSESSMENT/PLAN Mrs. Haddad is a 37-year-old woman with a long history of recurrent right lower extremity deep vein thromboses initially with a provoked clot. She has chronic postphlebitic syndrome and recently with unprovoked deep vein thromboses. We established previously that she would benefit from long-term anticoagulant therapy with Coumadin. We have explored the possibility of the new oral anticoagulants which is not affordable. She does not have insurance yet, is pending insurance at her work. She is familiar with Coumadin and therefore would like to continue Coumadin. She comes in with chest pains similar to her pulmonary embolism. However it is hard to exclude the possibility of recurrent pulmonary embolism, worsened shortness of breath because of asthma exacerbation. Nebulizer treatment for her asthma with albuterol is prescribed. Since her INR was therapeutic I am unable to exclude recurrence due to noncompliance which she admits to as well as subtherapeutic anticoagulant therapy. We discussed the risk and benefit of Coumadin. We discussed the need for continued compliance, otherwise quite dangerous when she stops her Coumadin. She becomes hypercoagulable with initial decrease in protein C, protein S with restarting her dose. She is on reasonable dose of 7.5 mg. She describes however, the previous dose is an orange pill. Her last INR was greater than 3 which suggests that her dose is somewhere between 5.0 and 7.5 mg. I recommend optimizing her dose of enoxaparin to 80 mg subcu q.12 h. We hope to bridge her to a therapeutic INR. She is determined to continue to follow up with Dr. Reyes. We discussed the information available to us and the concern for failure of anticoagulant therapy. I suspect most contributing part to that is the poor compliance. We discussed maneuvers to diminish the risk of her running out of Coumadin. Her questions were answered to her satisfaction. We will continue to follow her. Lastly, she reports no relief to her pain with the Lortab and she is requesting Percocet. This change was made. We will need to monitor total dose of Tylenol in a 24 hour period. It should not exceed 4 grams. MD JUAN JOSÉ Soler/KK /7:31 PM /9:26 PM
[2017-05-27 00:42] VITALS: PULSE 61
[2017-05-27 03:29] VITALS: BP 114/60; PULSE 61; RESP 19; TEMP 97.4; O2SAT 100
[2017-05-27] MEDS: oxyCODONE/ACETAMINOPHEN 5 MG/325 MG TAB PO PRN ×2 (07:00→10:59)
[2017-05-27 07:13] LABS: INTERNATIONAL NORMALIZED RATIO 1.5 RATIO; PROTHROMBIN TIME - PATIENT 16.7 SEC (9.8-11.6)
[2017-05-27 07:54] VITALS: BP 101/72; PULSE 72; RESP 18; TEMP 98.6; O2SAT 98
[2017-05-27 08:00] VITALS: RESP 26
[2017-05-27] MEDS: SODIUM CHLORIDE 0.9% FLUSH 10 ML FLUSH IV FLUSH SCH (08:48)
[2017-05-27] MEDS: ENOXAPARIN SODIUM 80 MG/0.8 ML SYRINGE SQ SCH (09:00)
[2017-05-27] MEDS ORDERED: ENOX80P SQ (09:35)
[2017-05-27] MEDS ORDERED: OXYC1TAB63 PO (09:35)
[2017-05-27] MEDS ORDERED: COUM5TAB PO (09:35)
--- NOTE | 2017-05-27 09:46 | HHI.PR ---
Subjective Remarks Follow-up for acute on chronic pulmonary embolism. The patient denies any shortness of breath. She has been ambulating with no problems breathing. She continues to have some discomfort underneath her right shoulder blade, reports the pain medicine helps. She understands that she will get a limited supply of pain medicine at discharge. She has given herself Lovenox injections in the past. She doesn't like giving herself Lovenox injections, but she would much rather do that and stay in the hospital because she wants to go back to work. She is hoping to go home today. Objective Vitals Vital Signs Date Time Temp Pulse Resp B/P Pulse Ox O2 Delivery O2 Flow Rate FiO2 05/27/17 08:00 26 05/27/17 07:54 98.6 72 18 101/72 98 05/27/17 03:29 97.4 61 19 114/60 100 05/27/17 00:42 61 05/26/17 23:23 98.8 63 18 106/69 93 05/26/17 20:04 97.9 82 19 118/74 97 05/26/17 20:00 84 05/26/17 15:54 98.4 68 18 112/75 99 05/26/17 11:51 98.6 74 20 120/70 98 I/O 05/26/17 05/26/17 05/26/17 05/27/17 05/27/17 05/27/17 07:00 15:00 23:00 07:00 15:00 23:00 Intake Total 500 ml Balance 500 ml Intake IV Total 500 ml Result Diagram: 05/26/1762105/26/17721 Imaging Last Impressions Chest X-Ray 05/25/172039 Signed Impressions: Service Date/Time: Thursday, May 25, 2017 20:41 - CONCLUSION: Normal examination. Mariano Lindsay MD CT Angiography 05/25/172039 Signed Impressions: Service Date/Time: Thursday, May 25, 2017 21:51 - CONCLUSION: Thrombus seen at the lateral aspect of the right lower lobe pulmonary artery and then extending into the pulmonary supplying the posterior lateral right lower lobe. Residual chronic embolus from the prior pulmonary embolus versus some recurrent acute emboli could have a similar appearance. There are patchy areas of peripheral density seen at the lateral and posterior aspects of the right lower lobe which may represent infarct. Some of these were present previously. Mariano Lindsay MD Objective Remarks GENERAL: Well-developed well-nourished. In no acute distress. SKIN: Warm and dry. No lesions noted. HEENT: Normocephalic. Pupils equal and round. Mucous membranes pink and moist. CARDIOVASCULAR: Regular rate and rhythm. No murmur appreciated. RESPIRATORY: No accessory muscle use. Clear to auscultation. Good air movement. Breath sounds equal bilaterally. GASTROINTESTINAL: Abdomen soft, non-tender, nondistended. Bowel sounds x4. MUSCULOSKELETAL: No obvious deformities. No clubbing or cyanosis. No edema. NEUROLOGICAL: Awake and alert. No focal neurological deficits. Moves upper and lower extremities spontaneously. Normal speech. PSYCHIATRIC: Appropriate mood and affect; insight and judgment normal. A/P Problem List: (1) Pulmonary emboli ICD Code: I26.99 Status: Acute (2) Anticoagulated on warfarin ICD Code: Z79.01 Status: Acute (3) DVT (deep venous thrombosis) ICD Code: I82.409 Status: Acute Assessment and Plan Pulmonary embolism, acute on chronic. History of DVT. Subtherapeutic INR, as patient missed a few doses of warfarin. Reviewed: INR initially 1.2, up to 1.5. CT angiogram showed thrombus seen at the lateral aspect of the right lower lobe pulmonary artery and then extending into the pulmonary supplying the posterior lateral right lower lobe; Residual chronic embolus from the prior pulmonary embolus versus some recurrent acute emboli could have a similar appearance: There are patchy areas of peripheral density seen at the lateral and posterior aspect of the right lower lobe which may represent infarct: Some of these were previously. -Resumed Coumadin, bridge with Lovenox until INR is greater than 2 -Continue Lovenox 80 mg twice daily and follow up with PCP and hematology as outpatient for continued INR monitoring -Consulted hematology, previously seen by Dr. Underwood. Appreciate input. Continue anticoagulation as above. -Pain control with oxycodone prn per hematology -Stressed importance of outpatient follow-up for INR monitoring -Symptoms improving, satting well on room air Chest pain, atypical - EKG showed sinus tachycardia heart rate 103 with no significant changes from previous - Troponin less than 0.02, CK 106, CK-MB 0.9 - Likely that chest pain is associated with PE, added pain meds DVT prop, DVT history Coumadin and Lovenox Discharge Planning Discussed the case management who will assist with Lovenox prescription. Likely discharge planning with Coumadin and Lovenox for outpatient follow-up with PCP and hematology. Lennox Mathis May 27, 2017 09:46
[2017-05-27] MEDS ORDERED: WARFARIN SOD 5 MG TAB PO SCH (16:00)
== END 2017-05-27 13:40 | disposition home or self-care (01) ==
LOC: NEPE 20:31 → NEDA 22:49 → NEPFCDU 05-26 00:14
PROVIDERS: ADMIT Family Medicine; ATTEND Family Medicine
DX: I26.99 Other pulmonary embolism without acute cor pulmonale (principal); J45.909 Unspecified asthma, uncomplicated; G51.0 Bell's palsy; R00.0 Tachycardia, unspecified; D72.829 Elevated white blood cell count, unspecified; R07.89 Other chest pain; R94.31 Abnormal electrocardiogram [ECG] [EKG]; F17.200 Nicotine dependence, unspecified, uncomplicated; F10.10 Alcohol abuse, uncomplicated; F12.90 Cannabis use, unspecified, uncomplicated; Z91.14 Patient's other noncompliance with medication regimen; Z79.01 Long term (current) use of anticoagulants; Z86.718 Personal history of other venous thrombosis and embolism; Z79.899 Other long term (current) drug therapy
CPT/HCPCS: 71010; 71275; 80048; 82550; 82552; 83735; 84484; 84703; 85007; 85025; 85027; 85610; 85730; 93005; 96374; 96375; 99285; G0378; J1650; J2270; J2405; J7040; Q9967

== ENCOUNTER → 2017-05-31 | Outpatient (CLI) | payer OTHER ==
[~2017-05-31] MED LIST changes: +COUM5TAB PO; -COUM7.5T PO; +ENOX80P SQ; +VITA10002 PO; -WOMETAB5 PO
[2017-05-31 15:29] LABS: PROTHROMBIN TIME - PATIENT 22.6 SEC (9.8-11.6)
== END ==
LOC: CLAB 15:03
PROVIDERS: ATTEND Physician Assistant
DX: I26.99 Other pulmonary embolism without acute cor pulmonale (principal)
CPT/HCPCS: 36415; 85610

== ENCOUNTER 2017-10-08 17:06 | Emergency (ER) | payer SELFPAY ==
[~2017-10-08] VITALS: Ht 165.1 cm; Wt 80.0 kg
[2017-10-08 17:10] VITALS: BP 171/108; PULSE 103; RESP 15; TEMP 98.6; O2SAT 100
--- NOTE | 2017-10-08 19:00 | PD ---
HPI Chief Complaint: Psychiatric Symptoms Time Seen by Provider: 18:29 Travel History International Travel<30 days: No Contact w/Intl Traveler<30days: No Traveled to known affect area: No History of Present Illness HPI Patient is a 37-year-old female who presents to emergency room with complaints of anxiety and depression. Patient reports that she has a lot going on her home right now, reports that her daughter is currently being placed in a foster care. Patient reports that she is depressed, and feels helpless. Reports that for the past 4 days, she could not get herself to get out of bed. Patient denies any suicidal or homicidal ideations, reports that she does have history of depression in the past. She reports that she is supposed to be on medications for depression, reports that she stopped taking all her medications a few years ago as she did not like the way the medications made her feel. 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) Psychiatric: Yes Reproductive: No Respiratory: Yes Immunizations Current: No Migraines: Yes Radiation Therapy: No Sleep Apnea: No ?: Not : 3 Para: 3 Past Surgical History Abdominal Surgery: No Cardiac Surgery: No Section: Yes (x3) Gynecologic Surgery: Yes (3 c sect) Neurologic Surgery: Yes (removal of cyst on brain stem) Thoracic Surgery: No Other Surgery: Yes Social History Alcohol Use: No Tobacco Use: Yes Substance Use: No Allergies-Medications (Allergen,Severity, Reaction): Coded Allergies: penicillin G (Unverified Allergy, Severe, SWELLING, VOMITING, 07/06/17) Reported Meds & Prescriptions Reported Meds & Active Scripts Active Oxycodone-Acetaminophen 5-325 mg Tab 1 Tab PO Q6HR PRN Coumadin (Warfarin) 5 Mg Tab 5 Mg PO DAILY@1600 Reported Vitamin B-12 (Cyanocobalamin) 1,000 Mcg Tab 1,000 Mcg PO DAILY Review of Systems General / Constitutional: No: Fever Eyes: No: Visual changes HENT: No: Headaches Cardiovascular: No: Chest Pain or Discomfort Respiratory: No: Shortness of Breath Gastrointestinal: No: Abdominal Pain Genitourinary: No: Dysuria Musculoskeletal: No: Pain Skin: No Rash Neurologic: No: Weakness Psychiatric: Positive: Anxiety, Depression, No: Suicidal Ideations, Substance Abuse, Homicidal Ideation Endocrine: No: Polydipsia Hematologic/Lymphatic: No: Easy Bruising Physical Exam Narrative GENERAL: nad SKIN: Focused skin assessment warm/dry. HEAD: Atraumatic. Normocephalic. EYES: Pupils equal and round. No scleral icterus. No injection or drainage. ENT: No nasal bleeding or discharge. Mucous membranes pink and moist. NECK: Trachea midline. No JVD. CARDIOVASCULAR: Regular rate and rhythm. No murmur appreciated. RESPIRATORY: No accessory muscle use. Clear to auscultation. Breath sounds equal bilaterally. GASTROINTESTINAL: Abdomen soft, non-tender, nondistended. Hepatic and splenic margins not palpable. MUSCULOSKELETAL: No obvious deformities. No clubbing. No cyanosis. No edema. NEUROLOGICAL: Awake and alert. No obvious cranial nerve deficits. Motor grossly within normal limits. Normal speech. PSYCHIATRIC: anxious mood and affect; -SI/ neg HI Data Data Last Documented VS Vital Signs Date Time Temp Pulse Resp B/P (MAP) Pulse Ox O2 Delivery O2 Flow Rate FiO2 10/08/17 19:04 18 10/08/17 17:10 98.6 103 171/108 (129) 100 Orders Orders Complete Blood Count With Diff (10/08/17 18:30) Comprehensive Metabolic Panel (10/08/17 18:30) Ed Urine Pregnancytest Poc (10/08/17 18:30) Psych Screen (10/08/17 18:30) Drug Screen, Random Urine (10/08/17 18:30) Prothrombin Time / Inr (Pt) (10/08/17 18:54) Act Partial Throm Time (Ptt) (10/08/17 18:54) Thyroid Stimulating Hormone (10/08/17 19:17) Labs Laboratory Tests Test 10/08/17 19:17 White Blood Count 13.6 TH/MM3 Red Blood Count 4.55 MIL/MM3 Hemoglobin 14.7 GM/DL Hematocrit 41.3 % Mean Corpuscular Volume 90.8 FL Mean Corpuscular Hemoglobin 32.4 PG Mean Corpuscular Hemoglobin Concent 35.7 % Red Cell Distribution Width 13.2 % Platelet Count 391 TH/MM3 Mean Platelet Volume 7.4 FL Neutrophils (%) (Auto) 72.3 % Lymphocytes (%) (Auto) 16.5 % Monocytes (%) (Auto) 8.9 % Eosinophils (%) (Auto) 1.4 % Basophils (%) (Auto) 0.9 % Neutrophils # (Auto) 9.8 TH/MM3 Lymphocytes # (Auto) 2.2 TH/MM3 Monocytes # (Auto) 1.2 TH/MM3 Eosinophils # (Auto) 0.2 TH/MM3 Basophils # (Auto) 0.1 TH/MM3 CBC Comment DIFF FINAL Differential Comment Prothrombin Time 10.3 SEC Prothromb Time International Ratio 0.9 RATIO Activated Partial Thromboplast Time 26.1 SEC Blood Urea Nitrogen 9 MG/DL Creatinine 0.81 MG/DL Random Glucose 155 MG/DL Total Protein 8.8 GM/DL Albumin 3.7 GM/DL Calcium Level 8.7 MG/DL Alkaline Phosphatase 109 U/L Aspartate Amino Transf (AST/SGOT) 56 U/L Alanine Aminotransferase (ALT/SGPT) 58 U/L Total Bilirubin 0.9 MG/DL Sodium Level 134 MEQ/L Potassium Level 3.7 MEQ/L Chloride Level 101 MEQ/L Carbon Dioxide Level 25.2 MEQ/L Anion Gap 8 MEQ/L Estimat Glomerular Filtration Rate 95 ML/MIN Thyroid Stimulating Hormone 3rd Gen 5.980 uIU/ML Urine Opiates Screen NEG Urine Barbiturates Screen NEG Urine Amphetamines Screen NEG Urine Benzodiazepines Screen NEG Urine Cocaine Screen NEG Urine Cannabinoids Screen POS [facility] Medical Decision Making Medical Screen Exam Complete: Yes Emergency Medical Condition: Yes Medical Record Reviewed: Yes Interpretation(s) Vital Signs Date Time Temp Pulse Resp B/P (MAP) Pulse Ox O2 Delivery O2 Flow Rate FiO2 10/08/17 17:10 98.6 103 15 171/108 (129) 100 Differential Diagnosis Anxiety reaction, depression, electrolyte abnormality Narrative Course 37-year-old female who presents to emergency room voluntarily for psychiatric evaluation due to depression and anxiety as she has been suffering from family issues over the past few weeks. Patient actually denies suicidal or homicidal ideation, patient here for psychiatric evaluation Diagnosis Primary Impression: Anxiety Additional Impressions: Depression Abnormal TSH Amber Solis DO Oct 08, 2017 19:00
[2017-10-08 19:38] LABS: AUTOMATED NEUTROPHIL # 9.8 TH/MM3 (1.8-7.7); BASOPHIL # 0.1 TH/MM3 (0-0.2); BASOPHIL % 0.9 % (0.0-2.0); EOSINOPHIL # 0.2 TH/MM3 (0-0.4); EOSINOPHIL % 1.4 % (0.0-4.0); HEMATOCRIT 41.3 % (35.0-46.0); HEMO FLAGS DIFF FINAL; LYMPH % 16.5 % (9.0-44.0); LYMPHOCYTE # 2.2 TH/MM3 (1.0-4.8); MEAN CELL VOLUME 90.8 FL (80.0-100.0); MEAN CORPUSCULAR HEMOGLOBIN 32.4 PG (27.0-34.0); MEAN CORPUSCULAR HGB CONC 35.7 % (32.0-36.0); MONO % 8.9 % (0.0-8.0); NEUT % 72.3 % (16.0-70.0); PLATELET COUNT 391 TH/MM3 (150-450); RED BLOOD COUNT 4.55 MIL/MM3 (4.00-5.30); RED CELL DISTRIBUTION WIDTH 13.2 % (11.6-17.2); WHITE BLOOD COUNT 13.6 TH/MM3 (4.0-11.0)
[2017-10-08 19:56] LABS: INTERNATIONAL NORMALIZED RATIO 0.9 RATIO; PROTHROMBIN TIME - PATIENT 10.3 SEC (9.8-11.6)
[2017-10-08 19:57] LABS: APTT (PATIENT) 26.1 SEC (24.3-30.1)
[2017-10-08 20:07] LABS: ALT (GPT) 58 U/L (10-53); ANION GAP 8 MEQ/L (5-15); AST (GOT) 56 U/L (15-37); BICARBONATE 25.2 MEQ/L (21.0-32.0); BLOOD UREA NITROGEN 9 MG/DL (7-18); CHLORIDE 101 MEQ/L (98-107); GLOMERULAR FILTRATION RATE 95 ML/MIN (>89); POTASSIUM 3.7 MEQ/L (3.5-5.1); SODIUM (NA) 134 MEQ/L (136-145)
[2017-10-08 20:17] LABS: ALKALINE PHOSPHATASE 109 U/L (45-117); TOTAL BILIRUBIN ADULT 0.9 MG/DL (0.2-1.0)
[2017-10-08 21:05] VITALS: BP 169/96; PULSE 99; RESP 17; TEMP 98.9; O2SAT 99
[2017-10-09 02:42] VITALS: BP 100/57; PULSE 71; RESP 17; O2SAT 100
[2017-10-09 06:21] VITALS: BP 147/71; PULSE 72; RESP 18; O2SAT 100
[2017-10-09 11:10] VITALS: BP 125/64; PULSE 84; RESP 17; TEMP 97.6; O2SAT 99
--- NOTE | 2017-10-09 14:23 | PD ---
History of Present Illness Chief Complaint: Psychiatric Symptoms Time Seen by Provider: 14:00 Travel History International Travel<30 Days: No Contact w/Intl Traveler<30days: No Known affected area: No Legal Status Legal Status: Voluntary History of Present Illness: History of Present Illness HPI Patient is a 37-year-old female with a reported history of depression who presents to emergency room with complaints of anxiety and depression and requesting a psychiatric evaluation. Reports that for the past several weeks she has been experiencing an increase in symptoms of depression including low level of energy, increased sleep, as well as experiencing more anxiety. She reports that she is experiencing stress related to her 16-year-old daughter wanting to date a female and her family being upset with her for allowing her to do so. She also reports that her drinks heavily and that several days ago he brought his ex-girlfriend to the house. Her children are in the custody of her parents and her mother is threatening to give up custody of the children. She is worried that they will go into the foster care system. Electronic medical record is reviewed. One previous visit to the emergency room while she was under the influence of alcohol in 2013. Current toxicology is positive for cannabinoids. Patient was monitored in secure environment and she presented no behavioral concerns. Patient is alert, cooperative and engaging. Her speech is clear, logical. There is no evidence of any psychosis, vj, hypomania. Mood is depressed. There is no suicidal or homicidal ideation, intent or plan. She is wanting to be able to get back on medication. Last took antidepressant Celexa 8 years ago and did not like the way it made her feel. She reports feeling better since she had the opportunity to sleep and eat since she has been here. 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 No hx of inpatietn tretament. No hx of suicide attempts. History of Inpatient Treatment: No Guns or firearms in home: No Social History Born and raised in [place]. 3 years. Lives with in a boarding house. Has 4 children ages 22, 16, 7, and 3 years old. They are in the custody of her mother. 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 Hx Alcohol Use: Yes Hx Tobacco Use: Yes Hx Substance Use: Yes Substance Use Type: Marijuana Hx of Substance Use Treatment: No Family Psychiatric History Negative Allergies-Medications (Allergen,Severity, Reaction): Coded Allergies: penicillin G (Unverified Allergy, Severe, SWELLING, VOMITING, 07/06/17) Reported Meds & Prescriptions Reported Meds & Active Scripts Active Oxycodone-Acetaminophen 5-325 mg Tab 1 Tab PO Q6HR PRN Coumadin (Warfarin) 5 Mg Tab 5 Mg PO DAILY@1600 Reported Vitamin B-12 (Cyanocobalamin) 1,000 Mcg Tab 1,000 Mcg PO DAILY Review of Systems Psychiatric: COMPLAINS OF: Anxiety, Depression Except as stated in HPI: all other systems reviewed are Neg Mental Status Examination Appearance: Appropriate (dressed in [facility] and maintaining hygiene.) Consciousness: Alert Orientation: x4 Motor Activity: Normal gait Speech: Unremarkable Language: Adequate Fund of Knowledge: Adequate Attention and Concentration: Adequate Memory: Unremarkable Mood: Appropriate, Sad Affect: Appropriate, Sad Thought Process & Associations: Intact Thought Content: Appropriate Hallucination Type: None Delusion Type: None Suicidal Ideation: No Suicidal Plan: No Suicidal Intention: No Homicidal Ideation: No Homicidal Plan: No Homicidal Intention: No Insight: Adequate Judgment: Adequate [facility] Medical Decision Making Medical Record Reviewed: Yes Assessment/Plan Patient is a 37-year-old female with a reported history of depression who presents to emergency room with complaints of anxiety and depression and requesting a psychiatric evaluation. Reports that for the past several weeks she has been experiencing an increase in symptoms of depression including low level of energy, increased sleep, as well as experiencing more anxiety. She reports that she is experiencing stress related to her 16-year-old daughter wanting to date a female and her family being upset with her for allowing her to do so. She has no suicidal or homicidal ideation. She is reporting that she feels better since she has been in [facility]. The patient is agreeable to seeking outpatient psychiatric treatment. She will be provided with the information on [facility]. She is provided psychoeducation. At this time does not meet criteria for inpatient treatment. She will be discharge home to follow-up with outpatient care at [facility]. Orders Orders Complete Blood Count With Diff (10/08/17 18:30) Comprehensive Metabolic Panel (10/08/17 18:30) Ed Urine Pregnancytest Poc (10/08/17 18:30) Psych Screen (10/08/17 18:30) Drug Screen, Random Urine (10/08/17 18:30) Prothrombin Time / Inr (Pt) (10/08/17 18:54) Act Partial Throm Time (Ptt) (10/08/17 18:54) Thyroid Stimulating Hormone (10/08/17 19:17) Diet Regular Basic (10/09/17 Breakfast) Diet Regular Basic (10/09/17 Lunch) Results Vital Signs Date Time Temp Pulse Resp B/P (MAP) Pulse Ox O2 Delivery O2 Flow Rate FiO2 10/09/17 11:10 97.6 84 17 125/64 (84) 99 Room Air 10/09/17 06:21 72 18 147/71 (96) 100 Room Air 10/09/17 02:42 71 17 100/57 (71) 100 Room Air 10/08/17 21:05 98.9 99 17 169/96 (120) 99 Room Air 10/08/17 19:04 18 10/08/17 17:10 98.6 103 15 171/108 (129) 100 Laboratory Tests Test 10/08/17 19:17 White Blood Count 13.6 Red Blood Count 4.55 Hemoglobin 14.7 Hematocrit 41.3 Mean Corpuscular Volume 90.8 Mean Corpuscular Hemoglobin 32.4 Mean Corpuscular Hemoglobin Concent 35.7 Red Cell Distribution Width 13.2 Platelet Count 391 Mean Platelet Volume 7.4 Neutrophils (%) (Auto) 72.3 Lymphocytes (%) (Auto) 16.5 Monocytes (%) (Auto) 8.9 Eosinophils (%) (Auto) 1.4 Basophils (%) (Auto) 0.9 Neutrophils # (Auto) 9.8 Lymphocytes # (Auto) 2.2 Monocytes # (Auto) 1.2 Eosinophils # (Auto) 0.2 Basophils # (Auto) 0.1 CBC Comment DIFF FINAL Differential Comment Prothrombin Time 10.3 Prothromb Time International Ratio 0.9 Activated Partial Thromboplast Time 26.1 Blood Urea Nitrogen 9 Creatinine 0.81 Random Glucose 155 Total Protein 8.8 Albumin 3.7 Calcium Level 8.7 Alkaline Phosphatase 109 Aspartate Amino Transf (AST/SGOT) 56 Alanine Aminotransferase (ALT/SGPT) 58 Total Bilirubin 0.9 Sodium Level 134 Potassium Level 3.7 Chloride Level 101 Carbon Dioxide Level 25.2 Anion Gap 8 Estimat Glomerular Filtration Rate 95 Thyroid Stimulating Hormone 3rd Gen 5.980 Urine Opiates Screen NEG Urine Barbiturates Screen NEG Urine Amphetamines Screen NEG Urine Benzodiazepines Screen NEG Urine Cocaine Screen NEG Urine Cannabinoids Screen POS Diagnosis Primary Impression: Adjustment disorder Additional Impression: Abnormal TSH Psychiatrically Cleared: Yes Med/ Other Pt Specific Info: No Meds Exist/No RX given Disposition: 01 DISCHARGE HOME Condition: Stable Problem Qualifiers Primary Impression: Adjustment disorder Qualified Codes: F43.21 - Adjustment disorder with depressed mood Loretta Alva [facility] Oct 09, 2017 14:23
[2017-10-09 14:35] VITALS: BP 129/75; PULSE 88; RESP 16; TEMP 98.6; O2SAT 100
--- NOTE | 2017-10-09 15:27 | PD ---
Physical Exam Date Seen by Provider: Oct 09, 2017 Narrative 37-year-old female presents to the emergency department with suicidal or homicidal ideations. Patient was medically cleared and saw psychiatry. Patient saw psychiatry and agreed to see outpatient treatment. At this point patient denies any suicidal or homicidal ideations. She would like to get back to her life and take medication as prescribed. Will be discharged today Data Data Last Documented VS Vital Signs Date Time Temp Pulse Resp B/P (MAP) Pulse Ox O2 Delivery O2 Flow Rate FiO2 10/09/17 15:50 10/09/17 14:35 98.6 88 16 100 Room Air Orders Orders Complete Blood Count With Diff (10/08/17 18:30) Comprehensive Metabolic Panel (10/08/17 18:30) Ed Urine Pregnancytest Poc (10/08/17 18:30) Psych Screen (10/08/17 18:30) Drug Screen, Random Urine (10/08/17 18:30) Prothrombin Time / Inr (Pt) (10/08/17 18:54) Act Partial Throm Time (Ptt) (10/08/17 18:54) Thyroid Stimulating Hormone (10/08/17 19:17) Diet Regular Basic (10/09/17 Breakfast) Diet Regular Basic (10/09/17 Lunch) Ed Discharge Order (10/09/17 15:39) Labs Laboratory Tests Test 10/08/17 19:17 White Blood Count 13.6 TH/MM3 Red Blood Count 4.55 MIL/MM3 Hemoglobin 14.7 GM/DL Hematocrit 41.3 % Mean Corpuscular Volume 90.8 FL Mean Corpuscular Hemoglobin 32.4 PG Mean Corpuscular Hemoglobin Concent 35.7 % Red Cell Distribution Width 13.2 % Platelet Count 391 TH/MM3 Mean Platelet Volume 7.4 FL Neutrophils (%) (Auto) 72.3 % Lymphocytes (%) (Auto) 16.5 % Monocytes (%) (Auto) 8.9 % Eosinophils (%) (Auto) 1.4 % Basophils (%) (Auto) 0.9 % Neutrophils # (Auto) 9.8 TH/MM3 Lymphocytes # (Auto) 2.2 TH/MM3 Monocytes # (Auto) 1.2 TH/MM3 Eosinophils # (Auto) 0.2 TH/MM3 Basophils # (Auto) 0.1 TH/MM3 CBC Comment DIFF FINAL Differential Comment Prothrombin Time 10.3 SEC Prothromb Time International Ratio 0.9 RATIO Activated Partial Thromboplast Time 26.1 SEC Blood Urea Nitrogen 9 MG/DL Creatinine 0.81 MG/DL Random Glucose 155 MG/DL Total Protein 8.8 GM/DL Albumin 3.7 GM/DL Calcium Level 8.7 MG/DL Alkaline Phosphatase 109 U/L Aspartate Amino Transf (AST/SGOT) 56 U/L Alanine Aminotransferase (ALT/SGPT) 58 U/L Total Bilirubin 0.9 MG/DL Sodium Level 134 MEQ/L Potassium Level 3.7 MEQ/L Chloride Level 101 MEQ/L Carbon Dioxide Level 25.2 MEQ/L Anion Gap 8 MEQ/L Estimat Glomerular Filtration Rate 95 ML/MIN Thyroid Stimulating Hormone 3rd Gen 5.980 uIU/ML Urine Opiates Screen NEG Urine Barbiturates Screen NEG Urine Amphetamines Screen NEG Urine Benzodiazepines Screen NEG Urine Cocaine Screen NEG Urine Cannabinoids Screen POS MDM Supervised Visit with LINDA: Yes Diagnosis Primary Impression: Adjustment disorder Additional Impression: Abnormal TSH Disposition: 01 DISCHARGE HOME Condition: Stable Jacy Cha Oct 09, 2017 15:27
== END 2017-10-09 16:30 | disposition home or self-care (01) ==
LOC: NEPD 17:06 → NEPJ 10-09 16:30
DX: F41.8 Other specified anxiety disorders (principal); R94.6 Abnormal results of thyroid function studies; F43.21 Adjustment disorder with depressed mood; F12.90 Cannabis use, unspecified, uncomplicated; Z72.0 Tobacco use; Z88.0 Allergy status to penicillin
CPT/HCPCS: 80053; 80307; 84443; 84703; 85025; 85610; 85730; 99284

== ENCOUNTER 2017-12-15 23:33 | Emergency (ER) | payer SELFPAY ==
[~2017-12-15] VITALS: Ht 152.4 cm; Wt 80.0 kg
[~2017-12-15 23:33] MED LIST changes: -ENOX80P SQ
[2017-12-15 23:37] VITALS: BP 115/80; PULSE 116; RESP 16; TEMP 98.1; O2SAT 98
[2017-12-16] MEDS ORDERED: SODIUM CHLORIDE 0.9% FLUSH 10 ML FLUSH IVF PRN (00:15)
[2017-12-16 00:29] LABS: AUTOMATED NEUTROPHIL # 7.4 TH/MM3 (1.8-7.7); BASOPHIL % 0.2 % (0.0-2.0); EOSINOPHIL # 0.3 TH/MM3 (0-0.4); EOSINOPHIL % 2.2 % (0.0-4.0); HEMATOCRIT 37.4 % (35.0-46.0); HEMOGLOBIN 13.1 GM/DL (11.6-15.3); LYMPH % 29.2 % (9.0-44.0); LYMPHOCYTE # 3.5 TH/MM3 (1.0-4.8); MEAN CELL VOLUME 89.6 FL (80.0-100.0); MEAN CORPUSCULAR HEMOGLOBIN 31.4 PG (27.0-34.0); MEAN CORPUSCULAR HGB CONC 35.1 % (32.0-36.0); MONO % 6.4 % (0.0-8.0); MONOCYTE # 0.8 TH/MM3 (0-0.9); PLATELET COUNT 523 TH/MM3 (150-450); RED BLOOD COUNT 4.17 MIL/MM3 (4.00-5.30); RED CELL DISTRIBUTION WIDTH 12.9 % (11.6-17.2)
[2017-12-16 00:40] LABS: INTERNATIONAL NORMALIZED RATIO 0.9 RATIO; PROTHROMBIN TIME - PATIENT 9.4 SEC (9.8-11.6)
[2017-12-16 00:42] LABS: BICARBONATE 26.3 MEQ/L (21.0-32.0); BLOOD UREA NITROGEN 5 MG/DL (7-18); CALCIUM 8.3 MG/DL (8.5-10.1); CHLORIDE 107 MEQ/L (98-107); CREATININE 0.58 MG/DL (0.50-1.00); GLOMERULAR FILTRATION RATE 140 ML/MIN (>89); GLUCOSE,RANDOM 151 MG/DL (74-106); SODIUM (NA) 141 MEQ/L (136-145)
[2017-12-16 00:46] LABS: TROPONIN I LESS THAN 0.02 NG/ML (0.02-0.05)
[2017-12-16] MEDS ORDERED: IOHEXOL 350 MG/ML 10 ML VIAL (for RAD DIAG) IVCONTRAST ONE (01:07)
--- NOTE | 2017-12-16 01:12 | PD ---
HPI . Chest pain Chief Complaint: Pain: Acute or Chronic Time Seen by Provider: 00:11 Travel History International Travel<30 days: No Contact w/Intl Traveler<30days: No Traveled to known affect area: No History of Present Illness HPI Patient presents with chest pain, shortness of breath, right lower extremity swelling and pain. 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 She states she has been out of her Coumadin for 2 months. She developed the onset of pain, swelling and discoloration of her right lower extremity approximately a week ago. Pain is exacerbated by walking. She also developed chest pain and difficulty breathing about a week ago as well. The chest pain is intermittent. Exacerbated by breathing. Pain is currently rated 7/10. 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) Psychiatric: Yes Reproductive: No Respiratory: Yes Immunizations Current: No Migraines: Yes Radiation Therapy: No Sleep Apnea: No ?: Not LMP: 12/15/17 : 3 Para: 3 Past Surgical History Abdominal Surgery: No Cardiac Surgery: No Section: Yes (x4) Gynecologic Surgery: Yes (4 c sect) Neurologic Surgery: Yes (removal of cyst on brain stem) Thoracic Surgery: No Other Surgery: Yes Social History Alcohol Use: Yes (OCC) Tobacco Use: Yes (10 CIGS DAILY) Substance Use: No Allergies-Medications (Allergen,Severity, Reaction): Coded Allergies: penicillin G (Unverified Allergy, Severe, SWELLING, VOMITING, 12/15/17) Reported Meds & Prescriptions Reported Meds & Active Scripts Active Oxycodone-Acetaminophen 5-325 mg Tab 1 Tab PO Q6HR PRN Coumadin (Warfarin) 5 Mg Tab 5 Mg PO DAILY@1600 Reported Vitamin B-12 (Cyanocobalamin) 1,000 Mcg Tab 1,000 Mcg PO DAILY Review of Systems Except as stated in HPI: all other systems reviewed are Neg General / Constitutional: No: Fever, Chills Cardiovascular: Positive: Chest Pain or Discomfort Respiratory: Positive: Shortness of Breath Musculoskeletal: Positive: Cramping, Edema Skin: Positive Change in Pigmentation Physical Exam Narrative GENERAL: Awake and alert and in no apparent distress. SKIN: warm/dry. She has some darkening and swelling of her right lower extremity from the knee down. HEAD: Normocephalic. Atraumatic. EYES: Pupils equal and round. No scleral icterus. No injection or drainage. ENT: No nasal bleeding or discharge. Mucous membranes pink and moist. NECK: Trachea midline. Full range of motion without pain.. CARDIOVASCULAR: Regular rate and rhythm. Heart sounds are normal. RESPIRATORY: No accessory muscle use. Clear to auscultation. Breath sounds equal bilaterally. GASTROINTESTINAL: Abdomen soft. Nontender. Bowel sounds present. Nondistended. MUSCULOSKELETAL: No obvious deformities. Diffuse swelling and tenderness of the right lower extremity from the knee down. NEUROLOGICAL: Awake and alert. No obvious cranial nerve deficits. Motor grossly within normal limits. Normal speech. PSYCHIATRIC: Appropriate mood and affect; insight and judgment normal. Data Data Last Documented VS Vital Signs Date Time Temp Pulse Resp B/P (MAP) Pulse Ox O2 Delivery O2 Flow Rate FiO2 12/15/17 23:37 98.1 116 16 115/80 (92) 98 Room Air Orders Orders Electrocardiogram (12/16/17 00:11) Basic Metabolic Panel (Bmp) (12/16/17 00:11) Ckmb (Isoenzyme) Profile (12/16/17 00:11) Complete Blood Count With Diff (12/16/17 00:11) Magnesium (Mg) (12/16/17 00:11) Prothrombin Time / Inr (Pt) (12/16/17 00:11) Act Partial Throm Time (Ptt) (12/16/17 00:11) Troponin I (12/16/17 00:11) Ecg Monitoring (12/16/17 00:11) Iv Access Insert/Monitor (12/16/17 00:11) Oximetry (12/16/17 00:11) Sodium Chloride 0.9% Flush (Ns Flush) (12/16/17 00:15) Ct Pulmonary Angiogram (12/16/17 00:11) Us Leg Venous Doppler (12/16/17 00:14) Iohexol 350 Inj (Omnipaque 350 Inj) (12/16/17 01:07) Ketorolac Inj (Toradol Inj) (12/16/17 01:15) Rivaroxaban (Xarelto) (12/16/17 03:00) Ed Discharge Order (12/16/17 02:48) Labs Laboratory Tests Test 12/16/17 00:00 White Blood Count 12.0 TH/MM3 Red Blood Count 4.17 MIL/MM3 Hemoglobin 13.1 GM/DL Hematocrit 37.4 % Mean Corpuscular Volume 89.6 FL Mean Corpuscular Hemoglobin 31.4 PG Mean Corpuscular Hemoglobin Concent 35.1 % Red Cell Distribution Width 12.9 % Platelet Count 523 TH/MM3 Mean Platelet Volume 7.0 FL Neutrophils (%) (Auto) 62.0 % Lymphocytes (%) (Auto) 29.2 % Monocytes (%) (Auto) 6.4 % Eosinophils (%) (Auto) 2.2 % Basophils (%) (Auto) 0.2 % Neutrophils # (Auto) 7.4 TH/MM3 Lymphocytes # (Auto) 3.5 TH/MM3 Monocytes # (Auto) 0.8 TH/MM3 Eosinophils # (Auto) 0.3 TH/MM3 Basophils # (Auto) 0.0 TH/MM3 CBC Comment DIFF FINAL Differential Comment Prothrombin Time 9.4 SEC Prothromb Time International Ratio 0.9 RATIO Activated Partial Thromboplast Time 25.5 SEC Blood Urea Nitrogen 5 MG/DL Creatinine 0.58 MG/DL Random Glucose 151 MG/DL Calcium Level 8.3 MG/DL Magnesium Level 2.0 MG/DL Sodium Level 141 MEQ/L Potassium Level 3.4 MEQ/L Chloride Level 107 MEQ/L Carbon Dioxide Level 26.3 MEQ/L Anion Gap 8 MEQ/L Estimat Glomerular Filtration Rate 140 ML/MIN Total Creatine Kinase 49 U/L Troponin I LESS THAN 0.02 NG/ML MDM Medical Decision Making Medical Screen Exam Complete: Yes Emergency Medical Condition: Yes Interpretation(s) EKG shows a normal sinus rhythm with no acute ischemic change. Rate is 91. Differential Diagnosis Differential diagnosis of chest pain includes but is not limited to musculoskeletal pain, pulmonary embolism, acute coronary syndrome, pneumonia, pleurisy Differential diagnosis of leg pain includes but is not limited to lumbar radiculopathy, arthritis, myalgias, DVT, ruptured Solis's cyst. Narrative Course This patient presents with pain and swelling of right lower extremity as well as chest pain or shortness of breath. She has a history of DVT and PE. She is off of her Coumadin. Down and CT for PE are pending as are routine labs. CBC & BMP Diagram 12/16/17 00:00 Calcium Level 8.3 L, Magnesium Level 2.0 trop < 0.02 INR 0.9 Last Impressions Lower Extremity Ultrasound 12/16/17 0014 Signed Impressions: Service Date/Time: November 01:21 - CONCLUSION: The study is positive for deep venous thrombosis in the thigh and popliteal region with nonocclusive thrombus. Xavi Lopez MD CT Angiography 12/16/17 0011 Signed Impressions: Service Date/Time: November 00:49 - CONCLUSION: 1. The study is negative for pulmonary embolism. 2. At site of prior pulmonary infarction in the lower lateral right lung, there is small residual 8mm opacity. Xavi Lopez MD I will place the patient on Xarelto. Management will be consult. Her only reason for admission would be for anticoagulation which can be done as an outpatient. Diagnosis Primary Impression: DVT (deep venous thrombosis) Qualified Codes: I82.401 - Acute embolism and thrombosis of unspecified deep veins of right lower extremity Med/Other Pt SpecificInfo: Prescription(s) given Scripts Rivaroxaban (Xarelto) 15 Mg Tab 15 MG PO Q12HR for Blood Clot Prevention for 21 Days, TAB 0 Refills Prov: Mary Carmen Phillips MD 12/16/17 Disposition: DISCHARGE HOME Condition: Stable Mary Carmen Phillips MD Dec 16, 2017 01:12
[2017-12-16] MEDS ORDERED: KETOROLAC TROMETHAMINE 30 MG/ML (IVP) VIAL IV PUSH ONE (01:15)
--- NOTE | 2017-12-16 01:15 | RADRPT ---
EXAM DATE/TIME: 12/16/2017 00:49 [facility] COMPARISON: CT PULMONARY ANGIOGRAM, May 25, 2017, 21:51. INDICATIONS : Chest pain. IV CONTRAST: 75 cc Omnipaque 350 (iohexol) IV RADIATION DOSE: 10.87 CTDIvol (mGy) MEDICAL HISTORY : Deep venous thrombosis. Cardiovascular disease PE SURGICAL HISTORY : Tubal ligation. ENCOUNTER: Initial ACUITY: 1 day PAIN SCALE: 6/10 LOCATION: Bilateral chest TECHNIQUE: Volumetric scanning of the chest was performed using a pulmonary embolism protocol MIP images were re constructed. Using automated exposure control and adjustment of the mA and/or kV according to patien t size, radiation dose was kept as low as reasonably achievable to obtain optimal diagnostic quality images. DICOM format image data is available electronically for review and comparison. Follow-up recommendations for detected pulmonary nodules are based at a minimum on nodule size and pa tient risk factors according to Fleischner Society Guidelines. FINDINGS: PULMONARY ARTERIES: No filling defects are seen in the pulmonary arteries through the segmental level. LUNGS: There is no consolidation or pneumothorax . No concerning pulmonary nodule is visualized. PLEURAE: There is a small opacity at the periphery of the lower lateral right lung and costophrenic angle do uring 9 mm, a residual of a larger area of opacity seen on prior exam 05/25/17, believed to be an area of infarction. MEDIASTINUM: There is good visualization of the great vessels of the middle mediastinum. No evidence of mediastin al or hilar adenopathy/mass. CONCLUSION: 1. The study is negative for pulmonary embolism. 2. At site of prior pulmonary infarction in the lower lateral right lung, there is small residual 8mm opacity. Xavi Lopez MD on December 16, 2017 at 1:08 Board Certified Radiologist. This report was verified electronically.
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
[2017-12-16] MEDS ORDERED: XARE15TA PO (02:50)
[2017-12-16] MEDS ORDERED: RIVAROXABAN 15 MG TAB PO ONE (03:00)
[2017-12-16 05:00] VITALS: BP 95/60; PULSE 94; RESP 14; O2SAT 98
--- NOTE | 2017-12-16 23:47 | EKG ---
Date Performed: 12/16/2017 Time Performed: 00:53:10 PTAGE: 37 years EKG: Sinus rhythm NORMAL ECG PREVIOUS TRACING : 05/25/2017 20.42 Since the prior tracing, there has been no significant mejia DOCTOR: Jose Alejandro Mc Interpretating Date/Time 12/16/2017 23:46:17
== END 2017-12-16 07:23 | disposition home or self-care (01) ==
LOC: NEPC 23:33 → NEPD 12-16 07:23
DX: I82.431 Acute embolism and thrombosis of right popliteal vein (principal); I82.4Y1 Acute embolism and thrombosis of unspecified deep veins of right proximal lower extremity; R06.02 Shortness of breath; J45.909 Unspecified asthma, uncomplicated; F41.9 Anxiety disorder, unspecified; F17.210 Nicotine dependence, cigarettes, uncomplicated; Z79.01 Long term (current) use of anticoagulants; Z86.718 Personal history of other venous thrombosis and embolism; Z86.711 Personal history of pulmonary embolism
CPT/HCPCS: 71275; 80048; 82550; 83735; 84484; 85025; 85610; 85730; 93005; 93971; 96374; 99285; J1885; Q9967

== ENCOUNTER 2018-03-27 19:17 | Inpatient (IN) | payer SELFPAY ==
[2018-03-27] MEDS: IOHEXOL 350 MG/ML 10 ML VIAL (for RAD DIAG) IVCONTRAST (19:18)
[2018-03-27 19:53] LABS: HEMATOCRIT 42.4 % (35.0-46.0); HEMOGLOBIN 14.9 GM/DL (11.6-15.3); MEAN CELL VOLUME 88.2 FL (80.0-100.0); MEAN CORPUSCULAR HEMOGLOBIN 31.1 PG (27.0-34.0); MEAN CORPUSCULAR HGB CONC 35.2 % (32.0-36.0); PLATELET COUNT 231 TH/MM3 (150-450); RED BLOOD COUNT 4.81 MIL/MM3 (4.00-5.30); RED CELL DISTRIBUTION WIDTH 12.9 % (11.6-17.2); WHITE BLOOD COUNT 16.9 TH/MM3 (4.0-11.0)
[2018-03-27] MEDS: ONDANSETRON HCL 4 MG/2 ML VIAL IV (19:54)
[2018-03-27] MEDS: SODIUM CHLOR 0.9% 1000 ML INJ 1,000 ML IV ×2 (19:54→22:57)
[2018-03-27 19:57] LABS: HEMO FLAGS AUTO DIFF
[2018-03-27 20:11] LABS: ALBUMIN 3.1 GM/DL (3.4-5.0); ANION GAP 12 MEQ/L (5-15); AST (GOT) 16 U/L (15-37); BICARBONATE 26.8 MEQ/L (21.0-32.0); BLOOD UREA NITROGEN 6 MG/DL (7-18); CHLORIDE 94 MEQ/L (98-107); CREATININE 0.56 MG/DL (0.50-1.00); GLOMERULAR FILTRATION RATE 146 ML/MIN (>89); GLUCOSE,RANDOM 87 MG/DL (74-106); LIPASE 108 U/L (73-393); MAGNESIUM 1.8 MG/DL (1.5-2.5); SODIUM (NA) 133 MEQ/L (136-145)
[2018-03-27 20:12] LABS: ALT (GPT) 17 U/L (10-53); APTT (PATIENT) 24.9 SEC (24.3-30.1); PROTHROMBIN TIME - PATIENT 10.1 SEC (9.8-11.6)
[2018-03-27 20:14] LABS: LACTIC ACID SEPSIS PROTOCOL 1.5 mmol/L (0.4-2.0)
[2018-03-27 20:14] LABS: ALKALINE PHOSPHATASE 81 U/L (45-117); TOTAL BILIRUBIN ADULT 0.5 MG/DL (0.2-1.0); TOTAL PROTEIN 8.1 GM/DL (6.4-8.2)
[2018-03-27 20:24] LABS: BANDS 54 % (0-6); BASOPHILS 1 % (0-2); LYMPHOCYTES 7 % (9-44); MONOCYTES 1 % (0-8); NEUTROPHIL # MANUAL DIFF 15.4 TH/MM3 (1.8-7.7); POLYS (SEG NEUTROPHILS) 37 % (16-70); WBC DIFF SAMPLE 100
[2018-03-27 20:25] LABS: PLATELET ESTIMATE SMEAR NORMAL (NORMAL); PLATELET MORPHOLOGY NORMAL (NORMAL); SCAN/DIFF FINAL DIFF MANUAL; TOXIC VACUOLATION PRESENT (NONE SEEN)
[2018-03-27] MEDS: POTASSIUM CHLORIDE 20 MEQ CONTROLLED RELEASE TAB PO (20:30)
[2018-03-27 20:36] LABS: BILIRUBIN, URINE NEG (NEG); BLOOD, URINE TRACE (NEG); GLUCOSE,URINE NEG (NEG); KETONE, URINE 150 mg/dL (NEG); MUCUS URINE FEW /lpf (OCC); NITRITE,URINE NEG (NEG); SQUAMOUS EPITHELIAL CELL URINE 19 /hpf (0-5); URINE COLOR YELLOW (YELLW/STRAW); URINE LEUKOCYTE ESTERASE NEG (NEG)
[2018-03-27 20:37] LABS: COMMENT (UR) CULT NOT INDICATED; CULTURE IF INDICATED CULT NOT INDICATED
[2018-03-27] MEDS: SODIUM CHLORID 0.9% 500 ML INJ 500 ML IV (21:05)
[2018-03-27] MEDS ORDERED: AZTREONAM INJ 1,000 MG in SODIUM CHLORIDE 0.9% INJ 100 ML IV (21:30)
[2018-03-27] MEDS ORDERED: VANCOMYCIN INJ 1,000 MG in SODIUM CHLOR 0.9% 250 ML INJ 250 ML IV (21:30)
[2018-03-27] MEDS ORDERED: HEPARIN SODIUM - IV 10,000 UNITS/10 ML VIAL IV (21:45)
[2018-03-27] MEDS: metroNIDAZOLE 500 MG INJ 100 ML IV (21:52)
[2018-03-27] MEDS ORDERED: LACTULOSE SYRUP 20 GM/30 ML CUP PO (22:00)
[2018-03-27] MEDS ORDERED: SENNOSIDES 8.6 MG TAB PO (22:00)
[2018-03-27] MEDS ORDERED: MAGNESIUM HYDROXIDE SUSP 30 ML CUP PO (22:00)
[2018-03-27] MEDS ORDERED: SODIUM CHLORIDE 0.9% FLUSH 10 ML FLUSH IV FLUSH (22:00)
[2018-03-27] MEDS ORDERED: ACETAMINOPHEN 325 MG TAB PO (22:00)
[2018-03-27] MEDS ORDERED: BISACODYL 10 MG SUPP RECTAL (22:00)
[2018-03-27] MEDS: ONDANSETRON HCL 4 MG/2 ML VIAL IV PUSH (22:12)
[2018-03-27] MEDS: MORPHINE SULFATE 4 MG/ML INJ IV PUSH ×2 (22:12→23:36)
[2018-03-27] MEDS: HEPARIN-D5W 25,000 U/250 ML 250 ML IV (22:15)
[2018-03-28 00:59] LABS: BETA HCG QUANT LESS THAN 1 MIU/ML (0-5)
[2018-03-28] MEDS: ONDANSETRON HCL 4 MG/2 ML VIAL IVP (01:39)
[2018-03-28] MEDS: MORPHINE SULFATE 4 MG/ML INJ IV PUSH ×6 (03:43→23:11)
[2018-03-28] MEDS: metroNIDAZOLE 500 MG INJ 100 ML IV ×3 (04:54→23:11)
[2018-03-28 06:31] LABS: APTT (PATIENT) 34.3 SEC (24.3-30.1)
[2018-03-28 06:47] LABS: ALBUMIN 2.5 GM/DL (3.4-5.0); ALKALINE PHOSPHATASE 75 U/L (45-117); ALT (GPT) 14 U/L (10-53); ANION GAP 9 MEQ/L (5-15); AST (GOT) 13 U/L (15-37); BICARBONATE 28.1 MEQ/L (21.0-32.0); BLOOD UREA NITROGEN 5 MG/DL (7-18); CALCIUM 7.8 MG/DL (8.5-10.1); CHLORIDE 100 MEQ/L (98-107); CREATININE 0.42 MG/DL (0.50-1.00); GLOMERULAR FILTRATION RATE 203 ML/MIN (>89); GLUCOSE,RANDOM 70 MG/DL (74-106); POTASSIUM 3.2 MEQ/L (3.5-5.1); SODIUM (NA) 137 MEQ/L (136-145); TOTAL BILIRUBIN ADULT 0.3 MG/DL (0.2-1.0); TOTAL PROTEIN 6.7 GM/DL (6.4-8.2)
[2018-03-28 06:56] LABS: AUTOMATED NEUTROPHIL # 10.7 TH/MM3 (1.8-7.7); BASOPHIL % 0.3 % (0.0-2.0); EOSINOPHIL # 0.1 TH/MM3 (0-0.4); EOSINOPHIL % 0.6 % (0.0-4.0); HEMATOCRIT 38.5 % (35.0-46.0); HEMO FLAGS DIFF FINAL; HEMOGLOBIN 13.2 GM/DL (11.6-15.3); LYMPH % 13.5 % (9.0-44.0); LYMPHOCYTE # 1.9 TH/MM3 (1.0-4.8); MEAN CELL VOLUME 91.4 FL (80.0-100.0); MEAN CORPUSCULAR HEMOGLOBIN 31.4 PG (27.0-34.0); MEAN CORPUSCULAR HGB CONC 34.3 % (32.0-36.0); MEAN PLATELET VOLUME 8.2 FL (7.0-11.0); MONO % 10.4 % (0.0-8.0); MONOCYTE # 1.5 TH/MM3 (0-0.9); NEUT % 75.2 % (16.0-70.0); PLATELET COUNT 268 TH/MM3 (150-450); RED BLOOD COUNT 4.21 MIL/MM3 (4.00-5.30); RED CELL DISTRIBUTION WIDTH 13.1 % (11.6-17.2); WHITE BLOOD COUNT 14.2 TH/MM3 (4.0-11.0)
[2018-03-28] MEDS: SODIUM CHLORIDE 0.9% FLUSH 10 ML FLUSH IV FLUSH ×2 (07:33→20:11)
[2018-03-28] MEDS: DOCUSATE SODIUM 50 MG/SENNA 8.6 MG TAB PO ×2 (09:00→20:09)
[2018-03-28] MEDS: CIPROFLOXACIN 400 MG PREMIX 200 ML IV ×2 (09:35→20:11)
[2018-03-28] MEDS: POTASSIUM CHLOR 10 MEQ PREMIX 100 ML IV ×3 (09:50→15:59)
[2018-03-28] MEDS: POTASSIUM CHLORIDE INJ 30 MEQ in DEXT 5%-NACL 0.9% 1000 ML INJ 1,000 ML IV ×2 (11:49→20:14)
[2018-03-28 13:30] LABS: APTT (PATIENT) 40.4 SEC (24.3-30.1)
[2018-03-28] MEDS: MAGNESIUM CITRATE SOLN 300 ML BTL PO ×2 (16:00→17:11)
[2018-03-28] MEDS: HEPARIN-D5W 25,000 U/250 ML 250 ML IV (16:33)
[2018-03-28] MEDS: IOHEXOL 350 MG/ML 10 ML VIAL (for RAD DIAG) IVCONTRAST (20:43)
[2018-03-28 23:15] LABS: APTT (PATIENT) 45.2 SEC (24.3-30.1)
[2018-03-29] MEDS: MORPHINE SULFATE 4 MG/ML INJ IV PUSH ×2 (03:02→06:21)
[2018-03-29] MEDS ORDERED: CHLORHEXIDINE GLUCONATE 2 % 1 PACK (2 CLOTHS) TOPICAL (04:00)
[2018-03-29] MEDS ORDERED: LACTATED RINGER'S 1000 ML IV (04:00)
[2018-03-29] MEDS ORDERED: SODIUM CHLORID 0.9% 500 ML IV (04:00)
[2018-03-29] MEDS ORDERED: POVIDONE IODINE 5% (ANTISEPSIS KIT) 4 APPLICATIONS EACH NARE (04:00)
[2018-03-29] MEDS: POTASSIUM CHLORIDE INJ 30 MEQ in DEXT 5%-NACL 0.9% 1000 ML INJ 1,000 ML IV ×2 (06:18→20:23)
[2018-03-29] MEDS: metroNIDAZOLE 500 MG INJ 100 ML IV ×3 (06:18→20:23)
[2018-03-29] MEDS: DOCUSATE SODIUM 50 MG/SENNA 8.6 MG TAB PO (07:34)
[2018-03-29] MEDS: CIPROFLOXACIN 400 MG PREMIX 200 ML IV ×2 (07:35→20:23)
[2018-03-29] MEDS: SODIUM CHLORIDE 0.9% FLUSH 10 ML FLUSH IV FLUSH ×2 (07:35→20:23)
[2018-03-29 09:48] LABS: APTT (PATIENT) 27.1 SEC (24.3-30.1)
[2018-03-29 10:02] LABS: ANION GAP 7 MEQ/L (5-15); BICARBONATE 25.9 MEQ/L (21.0-32.0); BLOOD UREA NITROGEN 2 MG/DL (7-18); CALCIUM 7.7 MG/DL (8.5-10.1); CHLORIDE 107 MEQ/L (98-107); CREATININE 0.43 MG/DL (0.50-1.00); GLOMERULAR FILTRATION RATE 198 ML/MIN (>89); GLUCOSE,RANDOM 94 MG/DL (74-106); POTASSIUM 3.4 MEQ/L (3.5-5.1); SODIUM (NA) 140 MEQ/L (136-145)
[2018-03-29] MEDS: PROPOFOL 200 MG/20 ML AMP IV (12:00)
[2018-03-29] MEDS: LIDOCAINE HCL 1% PF 5 ML SYRINGE OTHER (12:00)
[2018-03-29] MEDS: ACETAMINOPHEN/HYDROcodone 325 MG/5 MG TAB PO (13:33)
[2018-03-29] MEDS: ONDANSETRON HCL 4 MG/2 ML VIAL IVP (13:39)
[2018-03-29] MEDS ORDERED: MORPHINE SULFATE 4 MG/ML INJ IM (14:00)
[2018-03-29] MEDS ORDERED: MORPHINE SULFATE 2 MG/ML SYRINGE IM (14:00)
[2018-03-29] MEDS: ENOXAPARIN SODIUM 80 MG/0.8 ML SYRINGE SQ (15:35)
[2018-03-29] MEDS: WARFARIN SOD 10 MG TAB PO (15:36)
[2018-03-29] MEDS: PANTOPRAZOLE SOD 40 MG DELAYED RELEASE TAB PO (15:36)
[2018-03-29] MEDS: POTASSIUM BICARBONATE 25 MEQ EFFERVESCENT TAB PO (15:36)
[2018-03-29] MEDS: MORPHINE SULFATE 4 MG/ML INJ IV ×2 (16:08→20:22)
[2018-03-29] MEDS ORDERED: MORPHINE SULFATE 4 MG/ML INJ IV (18:00)
[2018-03-29] MEDS: oxyCODONE/ACETAMINOPHEN 5 MG/325 MG TAB PO (22:07)
[2018-03-30] MEDS: ENOXAPARIN SODIUM 80 MG/0.8 ML SYRINGE SQ ×2 (00:23→13:40)
[2018-03-30] MEDS: MORPHINE SULFATE 4 MG/ML INJ IV (05:07)
[2018-03-30] MEDS: metroNIDAZOLE 500 MG INJ 100 ML IV ×3 (05:08→20:31)
[2018-03-30 07:46] LABS: HEMATOCRIT 34.7 % (35.0-46.0); HEMOGLOBIN 11.9 GM/DL (11.6-15.3); MEAN CELL VOLUME 90.9 FL (80.0-100.0); MEAN CORPUSCULAR HEMOGLOBIN 31.2 PG (27.0-34.0); MEAN CORPUSCULAR HGB CONC 34.3 % (32.0-36.0); MEAN PLATELET VOLUME 7.8 FL (7.0-11.0); PLATELET COUNT 310 TH/MM3 (150-450); RED BLOOD COUNT 3.81 MIL/MM3 (4.00-5.30); RED CELL DISTRIBUTION WIDTH 13.2 % (11.6-17.2); REVIEW FLAG FINAL; WHITE BLOOD COUNT 8.8 TH/MM3 (4.0-11.0)
[2018-03-30 07:52] LABS: INTERNATIONAL NORMALIZED RATIO 1.1 RATIO; PROTHROMBIN TIME - PATIENT 11.4 SEC (9.8-11.6)
[2018-03-30] MEDS: CIPROFLOXACIN 400 MG PREMIX 200 ML IV ×2 (08:44→20:32)
[2018-03-30] MEDS: SODIUM CHLORIDE 0.9% FLUSH 10 ML FLUSH IV FLUSH ×2 (08:44→20:32)
[2018-03-30] MEDS: PANTOPRAZOLE SOD 40 MG DELAYED RELEASE TAB PO (08:44)
[2018-03-30] MEDS: oxyCODONE/ACETAMINOPHEN 5 MG/325 MG TAB PO ×3 (08:49→20:30)
[2018-03-30] MEDS: WARFARIN SOD 10 MG TAB PO (14:35)
[2018-03-30] MEDS: POTASSIUM CHLORIDE 10 MEQ CONTROLLED RELEASE TAB PO (14:35)
[2018-03-30] MEDS ORDERED: MORPHINE SULFATE 4 MG/ML INJ IV (15:56)
[2018-03-31] MEDS: ENOXAPARIN SODIUM 80 MG/0.8 ML SYRINGE SQ ×3 (01:06→23:58)
[2018-03-31] MEDS: POTASSIUM CHLORIDE INJ 30 MEQ in DEXT 5%-NACL 0.9% 1000 ML INJ 1,000 ML IV (01:06)
[2018-03-31] MEDS: oxyCODONE/ACETAMINOPHEN 5 MG/325 MG TAB PO ×3 (06:10→18:44)
[2018-03-31] MEDS: metroNIDAZOLE 500 MG INJ 100 ML IV (06:10)
[2018-03-31 08:12] LABS: INTERNATIONAL NORMALIZED RATIO 1.2 RATIO
[2018-03-31 08:40] LABS: ALBUMIN 2.9 GM/DL (3.4-5.0); ALKALINE PHOSPHATASE 130 U/L (45-117); ALT (GPT) 17 U/L (10-53); ANION GAP 11 MEQ/L (5-15); AST (GOT) 15 U/L (15-37); BICARBONATE 24.5 MEQ/L (21.0-32.0); BLOOD UREA NITROGEN 4 MG/DL (7-18); CALCIUM 8.8 MG/DL (8.5-10.1); CHLORIDE 103 MEQ/L (98-107); CREATININE 0.47 MG/DL (0.50-1.00); GLOMERULAR FILTRATION RATE 179 ML/MIN (>89); GLUCOSE,RANDOM 90 MG/DL (74-106); POTASSIUM 4.1 MEQ/L (3.5-5.1); SODIUM (NA) 138 MEQ/L (136-145); TOTAL BILIRUBIN ADULT 0.1 MG/DL (0.2-1.0); TOTAL PROTEIN 7.1 GM/DL (6.4-8.2)
[2018-03-31] MEDS: SODIUM CHLORIDE 0.9% FLUSH 10 ML FLUSH IV FLUSH ×2 (09:00→23:36)
[2018-03-31] MEDS: CIPROFLOXACIN 400 MG PREMIX 200 ML IV (09:31)
[2018-03-31] MEDS: PANTOPRAZOLE SOD 40 MG DELAYED RELEASE TAB PO (09:32)
[2018-03-31] MEDS: metroNIDAZOLE 500 MG TAB PO ×2 (14:42→23:37)
[2018-03-31] MEDS: WARFARIN SOD 10 MG TAB PO (17:57)
[2018-03-31] MEDS: CIPROFLOXACIN 500 MG TAB PO (23:35)
[2018-04-01] MEDS: oxyCODONE/ACETAMINOPHEN 5 MG/325 MG TAB PO ×3 (04:52→17:48)
[2018-04-01] MEDS: metroNIDAZOLE 500 MG TAB PO ×3 (04:52→22:35)
[2018-04-01 06:41] LABS: ANION GAP 10 MEQ/L (5-15); BICARBONATE 26.4 MEQ/L (21.0-32.0); BLOOD UREA NITROGEN 10 MG/DL (7-18); CALCIUM 8.8 MG/DL (8.5-10.1); CHLORIDE 103 MEQ/L (98-107); CREATININE 0.56 MG/DL (0.50-1.00); GLOMERULAR FILTRATION RATE 146 ML/MIN (>89); GLUCOSE,RANDOM 70 MG/DL (74-106); POTASSIUM 3.8 MEQ/L (3.5-5.1); SODIUM (NA) 139 MEQ/L (136-145)
[2018-04-01 06:45] LABS: INTERNATIONAL NORMALIZED RATIO 1.4 RATIO; PROTHROMBIN TIME - PATIENT 14.1 SEC (9.8-11.6)
[2018-04-01] MEDS: CIPROFLOXACIN 500 MG TAB PO ×2 (08:54→22:35)
[2018-04-01] MEDS: PANTOPRAZOLE SOD 40 MG DELAYED RELEASE TAB PO (08:54)
[2018-04-01] MEDS: SODIUM CHLORIDE 0.9% FLUSH 10 ML FLUSH IV FLUSH ×2 (08:57→22:35)
[2018-04-01] MEDS: ENOXAPARIN SODIUM 80 MG/0.8 ML SYRINGE SQ (11:43)
[2018-04-01] MEDS: WARFARIN SOD 2.5 MG TAB PO (16:47)
[2018-04-01] MEDS: WARFARIN SOD 10 MG TAB PO (16:47)
[2018-04-02] MEDS: ENOXAPARIN SODIUM 80 MG/0.8 ML SYRINGE SQ (01:33)
[2018-04-02] MEDS: oxyCODONE/ACETAMINOPHEN 5 MG/325 MG TAB PO ×2 (01:34→09:13)
[2018-04-02 04:52] LABS: INTERNATIONAL NORMALIZED RATIO 1.9 RATIO; PROTHROMBIN TIME - PATIENT 19.2 SEC (9.8-11.6)
[2018-04-02] MEDS: metroNIDAZOLE 500 MG TAB PO (05:34)
[2018-04-02] MEDS: CIPROFLOXACIN 500 MG TAB PO (09:13)
[2018-04-02] MEDS: PANTOPRAZOLE SOD 40 MG DELAYED RELEASE TAB PO (09:14)
[2018-04-02] MEDS: SODIUM CHLORIDE 0.9% FLUSH 10 ML FLUSH IV FLUSH (09:14)
[2018-04-02] MEDS ORDERED: WARFARIN SOD 5 MG TAB PO (16:00)
== END 2018-04-02 13:22 | disposition home or self-care (01) | DRG 872 ==
LOC: NEPC 19:17 → NEDA 21:42 → N07B 22:34
PROC: 0DB58ZX Excision of Esophagus, Via Natural or Artificial Opening Endoscopic, Diagnostic (ICD-10-PCS; principal; 2018-03-29 11:55)
PROC: 0DB68ZX Excision of Stomach, Via Natural or Artificial Opening Endoscopic, Diagnostic (ICD-10-PCS; 2018-03-29 11:55)
PROC: 0DBN8ZX Excision of Sigmoid Colon, Via Natural or Artificial Opening Endoscopic, Diagnostic (ICD-10-PCS; 2018-03-29 11:55)
DX: A41.9 Sepsis, unspecified organism (principal); D68.59 Other primary thrombophilia; K20.9 Esophagitis, unspecified; K29.70 Gastritis, unspecified, without bleeding; K64.8 Other hemorrhoids; K64.4 Residual hemorrhoidal skin tags; F41.9 Anxiety disorder, unspecified; E87.6 Hypokalemia; K52.9 Noninfective gastroenteritis and colitis, unspecified; Z86.711 Personal history of pulmonary embolism; Z88.0 Allergy status to penicillin; Z86.718 Personal history of other venous thrombosis and embolism; Z72.0 Tobacco use
CPT/HCPCS: 71045; 74174; 74177; 80048; 80053; 81001; 83605; 83690; 83735; 84702; 84703; 85007; 85025; 85027; 85610; 85730; 87040; 88305; 88305-59; 88312; 93005; 96361; 96374; 99291-25